=== PATIENT | male | born 1960 | race Caucasian/White ===

== ENCOUNTER 2019-03-01 14:26 | Outpatient (RCR) | payer MEDICARE, SELFPAY ==
[2019-03-01 15:33] VITALS: BP 162/92; PULSE 77; RESP 18; TEMP 36.8; BMI 28.4
--- NOTE | 2019-03-01 17:42 | PCM.CONHBO ---
(1) Osteomyelitis of right foot Status: Chronic Code(s): M86.9 - Osteomyelitis, unspecified (2) Right foot ulcer Status: Chronic Code(s): L97.519 - Non-pressure chronic ulcer of other part of right foot with unspecified severity (3) Type 2 diabetes mellitus Status: Chronic Code(s): E11.9 - Type 2 diabetes mellitus without complications (4) PVD (peripheral vascular disease) Status: Chronic Code(s): I73.9 - Peripheral vascular disease, unspecified (5) Stage 2 chronic kidney disease Status: Chronic Code(s): N18.2 - Chronic kidney disease, stage 2 (mild) (6) Smoker Status: Chronic Code(s): F17.200 - Nicotine dependence, unspecified, uncomplicated (7) COPD (chronic obstructive pulmonary disease) Status: Chronic Code(s): J44.9 - Chronic obstructive pulmonary disease, unspecified History of Present Illness Date of Service: 03/01/19 Presenting Chief Complaint: Would like HBOT for the Osteomyelitis of his right foot. The patient is a 58 year old M who [facility] the possibility of initiating hyperbaric oxygen therapy for treatment of osteomyelitis of his right foot. He also is a diabetic and has non healing, ulcers of his right distal foot on the plantar surface with undermining and right lateral edge with tunneling where the fifth digit would be located. 02/26/18 Left superficial femoral artery diffuse 70-75% disease. S/p [employer] using drug coated balloons 03/15/18 MRI right foot-osteomyelitis involving the proximal and distal phalanx of the great toe with suspected septic arthritis 03/18/19 Pathology: Right great toe amputation due to acute osteomyelitis. Resection margin appears to be viable and uninvolved. 07/27/18 xray right foot findings: The patient is post amputation of the first toe at the MTP joint. There is fragmentation and bony destruction of the remnant of the first metatarsal. There is bony destruction and pathological fracture through the second proximal phalanx. There is a slight step off the third metatarsal head suggesting an early area of fragmentation. The third and fourth digits are intact. There is lucency of the fifth metatarsal head which might represent subtle osteomyelitis although this is probably normal. Hindfoot and midfoot generally unremarkable. THere is soft tissue swelling and arterial calcification noted. Impression: areas of osteomyelitis as described above. 08/03/18 Pathology: 2nd, 34d, 4th, 5th toes right foot: four toes, three of which exhibit gangrene. Two of the toes show underlying acute osteomyelitis. The resected margins of all the toes are free of the acute osteomyelitis. The soft tissue resected margins are viable. 09/09/18 Echocardiogram Systolic LV function (EF 50%). Grade 1 diastolic dysfunction. Mild LV hypertrophy. Left atrium mildly dilated. 01/25/19 MRI right foot: Large deep ulceration/intact abscess with a tract extending to the tip of the remaining fourth metatarsal where findings of osteomyelitis are present. The bone edema extends to the proximal portion of the bone. There is induration or early ulceration also surrounding the first metatarsal distally. Underlying osteomyelitis cannot be excluded. He was recently hospitalized 02/09/19 at [facility] for bacterial abscess involving the right foot likely due to polymicrobial organism. The previous wound culture showed Enterobacter cloacae on 07/27/18. Right foot osteomyelitis which is again due to polymicrobial organism. CAD, DM, HTN, GERD, Arthritis, Renal insufficiency, Hiatal hernia , sleep apnea, COPD. He was treated with Zosyn and Vancomycin. They wanted to place a PICC line and give IV antibiotics for six weeks. The patient refused to stay and refused the PICC line. He is afraid the antibiotics would damage his kidneys and his CKD stage 2. He left the hospital against medical advice. There is a note stating that the patient would like hyperbaric oxygen treatment. According to Dr. Wily Shen on 02/11/19 he states he does not feel that HBOT will improve or resolve his current infection. Patient left the hospital AMA. Past Medical History Past Medical History Pertinent to Hyperbaric Oxygen Therapy: Diabetes, Obstructive pulmonary disease, - - CAD s/p stent placement to left superficial femoral artery Chronic Problems Osteomyelitis of right foot (Chronic) Type 2 diabetes mellitus (Chronic) Right foot ulcer (Chronic) Stage 2 chronic kidney disease (Chronic) Smoker (Chronic) COPD (chronic obstructive pulmonary disease) (Chronic) PVD (peripheral vascular disease) (Chronic) Allergies/Adverse Reactions: Allergies No Known Allergies Allergy (Verified 03/02/19 10:10) Home Medications: Ambulatory Orders Medication Instructions Recorded Clopidogrel Bisulfate [Plavix] 75 mg PO DAILY 03/02/19 Insulin Detemir [Levemir Flextouch] 100 unit SQ 03/02/19 Omeprazole [Prilosec] 20 mg PO BID 03/02/19 Smoking Status: Current every day smoker Review of Systems Constitutional: Denies: Anorexia, Chills, Fever Eyes: Denies: Pain, Vision Change HEENT: Denies: Difficulty Hearing, Difficulty Swallowing, Sinus Congestion Cardiovascular: Reports: - - History of coronary artery disease status post stent placement. Denies: Chest Pain Respiratory: Reports: - - COPD and wears O2 at night, also has sleep apnea. Denies: Shortness of Breath Gastrointestinal: Reports: - - Has a hiatal hernia. Denies: Abdominal Pain, Nausea Genitourinary: Reports: - - hx CKD stage 2 Musculoskeletal: Reports: Foot Pain - right foot pain, right toes 1-5 have been amputated Skin: Reports: Wounds - Right plantar ulcer with undermining and right lateral edge of right foot with tunneling near where toe#5 would be Neurological: Reports: Blurred vision, Change in Speech, Difficulty swallowing Psychiatric: Denies: Anxiety Endocrine: Denies: Heat/ Cold Intolerance, Polydipsia, Polyuria Hematologic/ Lymphatic: Denies: Easy Bruising, Easy Bleeding - Physical Exam Vital Signs Temp Pulse Resp BP 98.2 F 77 18 162/92 H 03/01/19 15:33 03/01/19 15:33 03/01/19 15:33 03/01/19 15:33 General: Alert, Oriented x3, Cooperative HEENT: Atraumatic, TM's Clear Oral: Moist Mucosa Lungs: Wheezes - wheezes scattered throughout anterior and posterior bilaterally Cardiovascular: Regular rate, Regular Rhythm Extremities: Capillary Refill Less than 3 Seconds, Diminished Peripheral Pulses, - - right foot with no toes Skin: Ulcer/ Wound - ulcer on the right plantar with undermining and right lateral edge near where the 5th toe would be with tunneling Wound Measurements and Assessment WC - Nurse 1 - General Ulcer Measurement Start: 03/01/19 15:16 Freq: Status: Active Protocol: Activity Type Activity Date Activity User E-Sign Co-Sign Detail Recorded Client Recorded Date Recorded By Document 03/01/19 15:33 DV [id number] 03/01/19 16:06 DV 03/01/19 15:33 Wound Center Nurse 1 [Ulcer Assessment] #3 Right 4th Met Head -Combined with other wound No -Current Size (cm) - Length 0.3 -Current Size (cm) - Width 0.2 -Current Size (cm) - Depth 1.0 -Total Square Cm 0.06 -Date of Last Picture (Recall this 03/01/19 field) -Photo Taken Yes -Epithelialization None Present -Tunneling No -Undermining/Tunneling No -Circular Undermining No -Classification - Thickness Full Thickness without Exposed Support Structure -Granulation Amt None Present (0 %) -Granulation Quality N/A -Slough/Fibrin Yes -Necrosis Amt Small (1-33%) -Necrotic Tissue Type Adherent Slough -Structure Exposed None/Limited to Skin Breakdown -Texture (Lawanda-wound Skin Appearance) Assessed, Scarring -Moisture (Lawanda-wound Skin Appearance Assessed, ) Weeping -Color (Lawanda-wound Skin Appearance) Assessed, Erythema -Temperature (Lawanda-wound Skin No Abnormality Appearance) (Pt Warm) -Tenderness on Palpation (Lawanda-wound No Skin Appearance) -Ulcer Cleansing Rinsed/ Irrigated with Saline -Foul Odor after Cleansing Yes -Anesthetic Used 5% Lidocaine Gel #2 Right 5th Met Head -Combined with other wound No -Current Size (cm) - Length 1.0 -Current Size (cm) - Width 0.7 -Current Size (cm) - Depth 0.9 -Total Square Cm 0.70 -Date of Last Picture (Recall this 03/01/19 field) -Photo Taken Yes -Epithelialization None Present -Tunneling Position (O'clock) 2 -Tunneling Distance (cm) 1.7 -Tunneling Position #2 (O'clock) 4 -Tunneling Distance #2 (cm) 2.1 #1 Right Foot Plantar -Combined with other wound No -Current Size (cm) - Length 0.6 -Current Size (cm) - Width 0.4 -Current Size (cm) - Depth 0.5 -Total Square Cm 0.24 -Date of Last Picture (Recall this 03/01/19 field) -Photo Taken Yes -Epithelialization None Present -Undermining/Tunneling Yes -Undermining/Tunneling Starts (O' 12 clock) -Undermining/Tunneling Ends (O'clock) 2 -Maximum Distance (cm) 0.7 -Circular Undermining No -Classification - Thickness Full Thickness without Exposed Support Structure -Exudate Amt Medium -Exudate Type Serosanguineous -Wound Margin Indistinct, Non -Visible -Granulation Amt None Present (0 %) -Granulation Quality N/A -Slough/Fibrin Yes -Necrosis Amt Small (1-33%) -Necrotic Tissue Type Adherent Slough -Structure Exposed None/Limited to Skin Breakdown -Texture (Lawanda-wound Skin Appearance) Assessed, Scarring -Moisture (Lawanda-wound Skin Appearance Assessed, ) Weeping -Color (Lawanda-wound Skin Appearance) Assessed, Erythema -Temperature (Lawanda-wound Skin No Abnormality Appearance) (Pt Warm) -Tenderness on Palpation (Lawanda-wound No Skin Appearance) -Ulcer Cleansing Rinsed/ Irrigated with Saline -Foul Odor after Cleansing No -Anesthetic Used 4% Lidocaine Solution WC - Nurse 2 - General Ulcer CM Notes Start: 03/01/19 15:16 Freq: Status: Active Protocol: Activity Type Activity Date Activity User E-Sign Co-Sign Detail Recorded Client Recorded Date Recorded By Document 03/01/19 16:46 JF [id number] 03/01/19 16:56 JF 03/01/19 16:46 Wound Center Nurse 2 [Procedure/Treatment] #3 Right 4th Met Head -Correct Patient No -Correct Side, Site, Position No -Correct Procedure No -Procedure Performed No -Wound/Ulcer Outcome Not Healed #2 Right 5th Met Head -Correct Patient No -Correct Side, Site, Position No -Correct Procedure No -Procedure Performed No -Wound/Ulcer Outcome Not Healed #1 Right Foot Plantar -Correct Patient No -Correct Side, Site, Position No -Correct Procedure No -Procedure Performed No -Wound/Ulcer Outcome Not Healed [See Physician Procedure note for Specifics] Pain Scale: 0-10 Numeric [Pain] -Is Patient Pain Free? Yes Musculoskeletal: Tenderness Neurological: Neuro grossly intact Psych/Mental Status: Normal Affect, Appropriate Assessment/Plan MANUELITO BROWN is an appropriate candidate for hyperbaric oxygen therapy. Hyperbaric Oxygen Therapy would be an essential adjunct in the resolution and treatment of this patient's presenting problem. This patient has sufficient physiologic and psychological stamina to undergo the rigors of hyperbaric oxygen therapy. As such, I recommend the following: Hyperbaric Oxygen Treatments at 2.0 ELLA in 100% Oxygen for 90 minutes per treatment, for [] treatments. I have discussed the possible benefits of hyperbaric oxygen therapy with this patient. I have also presented and described the risks, including: air gas embolism, pneumothorax, central nervous system and pulmonary oxygen toxicity, flash pulmonary edema, hypoglycemia, reversible visual refractive changes, ear and sinus lesvia-trauma, and confinement anxiety. The patient has verbalized understanding of these risks, and is still wanting to undergo hyperbaric oxygen therapy. The patient understands the significant time and transportation commitment involved in daily treatments of up to two hours duration and has stated that they are willing to commit to this therapy. - HBOT Diagnosis Pierre III Diabetic Foot/Toe Ulcer (707.15/250.8) Ordered arterial studies due to the last study was done September 2017. Code Visit Office Visits / Consults: [id number] OV L4 New - greater than 45 minutes were spent reviewing patient's charts, speaking with patient, assessing patient and discussing plan of care
== END 2019-03-03 23:59 ==
LOC: WC 14:26
PROVIDERS: Visit Provider Nurse Practitioner Family
DX: E11.621 Type 2 diabetes mellitus with foot ulcer (principal); L97.511 Non-pressure chronic ulcer of other part of right foot limited to breakdown of skin; E11.22 Type 2 diabetes mellitus with diabetic chronic kidney disease; E11.51 Type 2 diabetes mellitus with diabetic peripheral angiopathy without gangrene; N18.2 Chronic kidney disease, stage 2 (mild); F17.200 Nicotine dependence, unspecified, uncomplicated; I25.10 Atherosclerotic heart disease of native coronary artery without angina pectoris; J44.9 Chronic obstructive pulmonary disease, unspecified; M86.671 Other chronic osteomyelitis, right ankle and foot
CPT/HCPCS: 99205; G0463

== ENCOUNTER 2019-03-23 15:30 | Outpatient (RCR) | payer MEDICARE, SELFPAY ==
[2019-03-04 01:35] VITALS: BP 162/92; PULSE 77; RESP 18; TEMP 36.8
--- NOTE | 2019-03-07 08:44 | ART_ITS ---
Reason For Study: PVD/PAD Procedure A bilateral lower extremity continuous wave Doppler with analog waveform analysis,segmental pressures,and ankle brachial indexes without exercise. Left Segmental Pressures Left brachial= 167mmHg. Left posterior tibial artery = 118mmHg. Left dorsalis pedis artery = 144mmHg. Left digit = 74 mmHg. The left dorsalis pedis waveforms are biphasic. The left posterior tibial artery waveforms are biphasic. Right Segmental Pressures Right brachial= 153mmHg. Right posterior tibial artery = 90mmHg. Right dorsalis pedis artery = 107mmHg. The right dorsalis pedis waveforms are biphasic. The right posterior tibial artery waveforms are biphasic. Indices The right ankle brachial index by the dorsalis pedis is 0.64. The right ankle brachial index by the posterior tibial artery is 0.54. The left ankle brachial index by the dorsalis pedis is 0.86. The left ankle brachial index by the posterior tibial artery is 0.71. The left digital-brachial index is 0.44. Interpretation Summary Biphasic Doppler waveforms are noted at ankle level bilaterally. Pulse-volume recordings appear satisfactory bilaterally. The resting right ankle-brachial index is moderately diminished. The resting left ankle-brachial index is mildly diminished. The right digital-brachial index was not determined due to a prior right partial foot amputation. The left digital-brachial index is moderately diminished. There is moderate impairment of arterial flow at ankle level on the right, and mild impairment of arterial flow at ankle level on the left. Arterial flow at digital level on the right was not assessed due to prior amputation. There is moderate impairment of arterial flow at digital level on the left. Segmental leg pressures proximal to the ankles were not obtained due to prior lower extremity stent procedure(s). Ordering Physician: Lou Griffin Performed By: Shana Monge RVT
[2019-03-09 15:17] VITALS: BP 154/98; PULSE 86; RESP 16; TEMP 36.6; BMI 28.4
--- NOTE | 2019-03-09 17:03 | PN.PCM_ITS ---
(1) Type 2 diabetes mellitus with diabetic polyneuropathy Status: Chronic Code(s): E11.42 - Type 2 diabetes mellitus with diabetic polyneuropathy (2) Amputation at midfoot Status: Chronic Qualifiers: Encounter type: sequela Laterality: right Qualified Code(s): S98.311S - Complete traumatic amputation of right midfoot, sequela Code(s): S98.319A - Complete traumatic amputation of unspecified midfoot, initial encounter (3) Osteomyelitis of right foot Status: Chronic Qualifiers: Osteomyelitis type: subacute Qualified Code(s): M86.271 - Subacute osteomyelitis, right ankle and foot Code(s): M86.9 - Osteomyelitis, unspecified (4) Stage 2 chronic kidney disease Status: Chronic Code(s): N18.2 - Chronic kidney disease, stage 2 (mild) (5) Smoker Status: Chronic Code(s): F17.200 - Nicotine dependence, unspecified, uncomplicated (6) PVD (peripheral vascular disease) Status: Chronic Code(s): I73.9 - Peripheral vascular disease, unspecified (7) Non-pressure chronic ulcer of other part of right foot with fat layer exposed Status: Chronic Code(s): L97.512 - Non-pressure chronic ulcer of other part of right foot with fat layer exposed (8) Malnutrition Status: Acute Code(s): E46 - Unspecified protein-calorie malnutrition (9) Delayed wound healing Status: Acute Code(s): T14.8XXD - Other injury of unspecified body region, subsequent encounter Type of Wound Date of Service: 03/09/19 Chief Complaint: Right foot ulcers History of Wound: This 58-year-old male with multiple comorbidities with self referred for hyperbaric oxygen therapy consideration and to see if any other interventions are available for his treatment of nonhealing right foot ulcers. His medical records from outside facilities and previous wound healing center provider were reviewed in detail with the following summary: 02/26/18 Left superficial femoral artery diffuse 70-75% disease. S/p SPEECH PATHOLOGIST ASSISTANT using drug coated balloons. 03/15/18 MRI right foot-osteomyelitis involving the proximal and distal phalanx of the great toe with suspected septic arthritis. 03/18/19 Pathology: Right great toe amputation due to acute osteomyelitis. Resection margin appears to be viable and uninvolved. 07/27/18 xray right foot findings: The patient is post amputation of the first toe at the MTP joint. There is fragmentation and bony destruction of the remnant of the first metatarsal. There is bony destruction and pathological fracture through the second proximal phalanx. There is a slight step off the third metatarsal head suggesting an early area of fragmentation. The third and fourth digits are intact. There is lucency of the fifth metatarsal head which might represent subtle osteomyelitis although this is probably normal. Hindfoot and midfoot generally unremarkable. THere is soft tissue swelling and arterial calcification noted. Impression: areas of osteomyelitis as described above. 08/03/18 Pathology: 2nd, 34d, 4th, 5th toes right foot: four toes, three of which exhibit gangrene. Two of the toes show underlying acute osteomyelitis. The resected margins of all the toes are free of the acute osteomyelitis. The soft tissue resected margins are viable. 09/09/18 Echocardiogram Systolic LV function (EF 50%). Grade 1 diastolic dysfunction. Mild LV hypertrophy. Left atrium mildly dilated. 01/25/19 MRI right foot: Large deep ulceration/intact abscess with a tract extending to the tip of the remaining fourth metatarsal where findings of osteomyelitis are present. The bone edema extends to the proximal portion of the bone. There is induration or early ulceration also surrounding the first metatarsal distally. Underlying osteomyelitis cannot be excluded. He was recently hospitalized 02/09/19 at [facility] for bacterial abscess involving the right foot likely due to polymicrobial organism. The previous wound culture showed Enterobacter cloacae on 07/27/18. Right foot osteomyelitis which is again due to polymicrobial organism. CAD, DM, HTN, GERD, Arthritis, Renal insufficiency, Hiatal hernia , sleep apnea, COPD. He was treated with Zosyn and Vancomycin. They wanted to place a PICC line and give IV antibiotics for six weeks. The patient refused to stay and refused the PICC line. He is afraid the antibiotics would damage his kidneys and his CKD stage 2. He left the hospital against medical advice. There is a note stating that the patient would like hyperbaric oxygen treatment. According to Dr. Wily Shen on 02/11/19 he states he does not feel that HBOT will improve or resolve his current infection. Patient left the hospital AMA. Upon continued evaluation during today's clinical visit, the patient is not interested in a below the knee amputation at this time, he is adamant about following up with his previous vascular surgeon and is scheduled for this upcoming week. [place] and is certain he is able to make the long drive and maintain compliance with visits. We will being interviewed for appropriateness of hyperbaric oxygen therapy it is apparent that the patient is very claustrophobic it does not think he would be able to enter one of the chambers for treatment. Sedation is not a viable consideration because he is required to drive after his visits. He would like to consider additional wound care and surgical options for his foot. Progress of Wound: Stable - Physical Exam Vital Signs Temp Pulse Resp BP 97.8 F 86 16 154/98 H 03/09/19 15:17 03/09/19 15:17 03/09/19 15:17 03/09/19 15:17 General: Alert, Oriented x3, Cooperative, No apparent distress HEENT: Atraumatic Extremities: No cyanosis, Capillary Refill Less than 3 Seconds - To amputation stump site right, No Calf Tenderness - Negative Jenny and Weaver sign bilateral, Diminished Peripheral Pulses, Edema, - - No fluctuance or palpation to the right lower extremity. There is a midfoot amputation noted right. Skin: Ulcer/ Wound - There is no maceration. No purulence, erythema, odor, streaking noted. There is probing to deep tissue. And the multiple wounds for the right foot cluster do appear to communicate there is undermining. His adjacent skin is hairless and atrophic. Wound Measurements and Assessment WC - Nurse 1 - General Ulcer Measurement Start: 03/09/19 15:17 Freq: Status: Active Protocol: Activity Type Activity Date Activity User E-Sign Co-Sign Detail Recorded Client Recorded Date Recorded By Document 03/09/19 15:17 [facility] [id number] 03/09/19 15:27 [facility] 03/09/19 15:17 Wound Center Nurse 1 [Ulcer Assessment] #3 Right 4th Met Head -Combined with other wound No -Current Size (cm) - Length 0.1 -Current Size (cm) - Width 0.1 -Current Size (cm) - Depth 0.4 -Total Square Cm 0.01 -Photo Taken No -Epithelialization None Present -Tunneling No -Undermining/Tunneling No -Circular Undermining No -Exudate Amt None Present -Wound Margin Flat & Intact -Granulation Amt None Present (0 %) -Necrosis Amt None Present (0 %) -Texture (Lawanda-wound Skin Appearance) Assessed -Moisture (Lawanda-wound Skin Appearance Assessed ) -Color (Lawanda-wound Skin Appearance) Assessed -Temperature (Lawanda-wound Skin No Abnormality Appearance) (Pt Warm) -Tenderness on Palpation (Lawanda-wound No Skin Appearance) -Ulcer Cleansing Rinsed/ Irrigated with Saline -Foul Odor after Cleansing No -Anesthetic Used 5% Lidocaine Gel #2 Right 5th Met Head -Combined with other wound No -Current Size (cm) - Length 1 -Current Size (cm) - Width 0.8 -Current Size (cm) - Depth 0.8 -Total Square Cm 0.8 -Photo Taken No -Epithelialization Small 1-33% -Tunneling No -Undermining/Tunneling No -Circular Undermining No -Exudate Amt Small -Exudate Type Serosanguineous -Wound Margin Distinct, Outline Attached -Granulation Amt Medium (34-66%) -Granulation Quality Red -Slough/Fibrin Yes -Necrosis Amt Small (1-33%) -Necrotic Tissue Type Adherent Slough -Texture (Lawanda-wound Skin Appearance) Assessed -Moisture (Lawanda-wound Skin Appearance Assessed, ) Maceration -Color (Lawanda-wound Skin Appearance) Assessed,Palor -Temperature (Lawanda-wound Skin No Abnormality Appearance) (Pt Warm) -Tenderness on Palpation (Lawanda-wound No Skin Appearance) -Ulcer Cleansing Rinsed/ Irrigated with Saline -Foul Odor after Cleansing No -Anesthetic Used 5% Lidocaine Gel #1 Right Foot Plantar -Combined with other wound No -Current Size (cm) - Length 0.6 -Current Size (cm) - Width 0.3 -Current Size (cm) - Depth 0.5 -Total Square Cm 0.18 -Photo Taken No -Epithelialization None Present -Tunneling No -Undermining/Tunneling No -Circular Undermining No -Exudate Amt None Present -Wound Margin Distinct, Outline Attached -Granulation Amt Large (67-100%) -Granulation Quality [place] -Slough/Fibrin No -Necrosis Amt None Present (0 %) -Texture (Lawanda-wound Skin Appearance) Assessed -Moisture (Lawanda-wound Skin Appearance Assessed,Dry/ ) Scaly -Color (Lawanda-wound Skin Appearance) Assessed -Temperature (Lawanda-wound Skin No Abnormality Appearance) (Pt Warm) -Tenderness on Palpation (Lawanda-wound No Skin Appearance) -Ulcer Cleansing Rinsed/ Irrigated with Saline -Foul Odor after Cleansing No -Anesthetic Used 5% Lidocaine Gel WC - Nurse 2 - General Ulcer CM Notes Start: 03/09/19 15:17 Freq: Status: Active Protocol: Activity Type Activity Date Activity User E-Sign Co-Sign Detail Recorded Client Recorded Date Recorded By Document 03/09/19 15:38 [id number] 03/09/19 15:52 03/09/19 15:38 Wound Center Nurse 2 [Procedure/Treatment] #3 Right 4th Met Head -Time 15:47 -Correct Patient Yes -Correct Side, Site, Position Yes -Correct Procedure Yes -Procedure Performed Yes -Type of Procedure Debridement -Clinical Debridement Subcutaneous -Post Debridement Size (cm) - Length 0.2 -Post Debridement Size (cm) - Width 0.2 -Post Debridement Size (cm) - Depth 0.4 -Total Square Cm 0.04 -Wound/Ulcer Outcome Not Healed -Ulcer Cleansing Rinsed/ Irrigated with Saline -Foul Odor after Cleansing No -Bioengineered Tissue No -Bleeding Controlled with NA,Pressure -Offloading Yes -Type of Offloading Surgical Shoe -Treatment Response Procedure Tolerated Well #2 Right 5th Met Head -Time 15:48 -Correct Patient Yes -Correct Side, Site, Position Yes -Correct Procedure Yes -Procedure Performed Yes -Type of Procedure Debridement -Clinical Debridement Subcutaneous -Post Debridement Size (cm) - Length 1 -Post Debridement Size (cm) - Width 1 -Post Debridement Size (cm) - Depth 0.8 -Total Square Cm 1 -Wound/Ulcer Outcome Not Healed -Ulcer Cleansing Rinsed/ Irrigated with Saline -Foul Odor after Cleansing No -Bioengineered Tissue No -Bleeding Controlled with Pressure -Offloading Yes -Type of Offloading Surgical Shoe -Treatment Response Procedure Tolerated Well #1 Right Foot Plantar -Time 15:48 -Correct Patient Yes -Correct Side, Site, Position Yes -Correct Procedure Yes -Procedure Performed Yes -Type of Procedure Debridement -Clinical Debridement Subcutaneous -Post Debridement Size (cm) - Length 0.6 -Post Debridement Size (cm) - Width 0.4 -Post Debridement Size (cm) - Depth 0.5 -Total Square Cm 0.24 -Wound/Ulcer Outcome Not Healed -Ulcer Cleansing Rinsed/ Irrigated with Saline -Foul Odor after Cleansing No -Bioengineered Tissue No -Bleeding Controlled with Pressure -Offloading Yes -Type of Offloading Surgical Shoe -Treatment Response Procedure Tolerated Well [See Physician Procedure note for Specifics] Pain Scale: 0-10 Numeric [Pain] -Is Patient Pain Free? Yes Musculoskeletal: No Tenderness to Palpation of Joints or Extremities, Muscle Wasting Neurological: - - Lack of normal epicritic sensation light touch is consistent with neuropathy Psych/Mental Status: Normal Affect, Appropriate Debridement Note Post-Debridement Measurements/Treatment WC - Nurse 2 - General Ulcer CM Notes Start: 03/09/19 15:17 Freq: Status: Active Protocol: Activity Type Activity Date Activity User E-Sign Co-Sign Detail Recorded Client Recorded Date Recorded By Document 03/09/19 15:38 MANUELA [id number] 03/09/19 15:52 MANUELA 03/09/19 15:38 Wound Center Nurse 2 #3 Right 4th Met Head -Time 15:47 -Correct Patient Yes -Correct Side, Site, Position Yes -Correct Procedure Yes -Procedure Performed Yes -Type of Procedure Debridement -Clinical Debridement Subcutaneous -Post Debridement Size (cm) - Length 0.2 -Post Debridement Size (cm) - Width 0.2 -Post Debridement Size (cm) - Depth 0.4 -Total Square Cm 0.04 -Wound/Ulcer Outcome Not Healed -Ulcer Cleansing Rinsed/ Irrigated with Saline -Foul Odor after Cleansing No -Bioengineered Tissue No -Bleeding Controlled with NA,Pressure -Offloading Yes -Type of Offloading Surgical Shoe -Treatment Response Procedure Tolerated Well #2 Right 5th Met Head -Time 15:48 -Correct Patient Yes -Correct Side, Site, Position Yes -Correct Procedure Yes -Procedure Performed Yes -Type of Procedure Debridement -Clinical Debridement Subcutaneous -Post Debridement Size (cm) - Length 1 -Post Debridement Size (cm) - Width 1 -Post Debridement Size (cm) - Depth 0.8 -Total Square Cm 1 -Wound/Ulcer Outcome Not Healed -Ulcer Cleansing Rinsed/ Irrigated with Saline -Foul Odor after Cleansing No -Bioengineered Tissue No -Bleeding Controlled with Pressure -Offloading Yes -Type of Offloading Surgical Shoe -Treatment Response Procedure Tolerated Well #1 Right Foot Plantar -Time 15:48 -Correct Patient Yes -Correct Side, Site, Position Yes -Correct Procedure Yes -Procedure Performed Yes -Type of Procedure Debridement -Clinical Debridement Subcutaneous -Post Debridement Size (cm) - Length 0.6 -Post Debridement Size (cm) - Width 0.4 -Post Debridement Size (cm) - Depth 0.5 -Total Square Cm 0.24 -Wound/Ulcer Outcome Not Healed -Ulcer Cleansing Rinsed/ Irrigated with Saline -Foul Odor after Cleansing No -Bioengineered Tissue No -Bleeding Controlled with Pressure -Offloading Yes -Type of Offloading Surgical Shoe -Treatment Response Procedure Tolerated Well Pain Scale: 0-10 Numeric Is Patient Pain Free? Yes Wound debrided: amputation stump site Laterality: Right Wound Grade/Stage: grade 3 Type of Debridement: Excisional debridement Anesthesia Used: 5% Lidocaine Gel Depth: in the subcutaneous layer Percentage of wound debrided: 100 Instrument Used: #15 blade Tissue Removed: fibrous, devitalized subcutaneous, biofilm, slough Severity: Fat Layer Exposed Amount of bleeding with debridement: Mild Bleeding Controlled with: Pressure Patient tolerated procedure well Assessment/Plan Assessment: Right foot ulcer with fat layer exposed and recently treated infectious myositis and concern of osteomyelitis. Amputation right foot. Delayed healing. Malnutrition suspected. Uncontrolled diabetes with neuropathy, hemoglobin A1c of 9.2%. Multiple other comorbidities Plan: I reviewed and discussed his case and performed a chart review including [facility] as well as faxed medical files from other healthcare centers. Subcutaneous excisional debridement was performed today as noted in the clinical panel. He tolerated this well. He was advised to continue with silver alginate deep packing dressing to the communicating cluster sites. He was reassured no purulence was noted today. As noted he is on antibiotics and he is advised to continue this. To monitor for development of local infection or systemic illness in which neither is noted today. Upon information obtained from medical records in combination with his clinical presentation, it is apparent he has a grade 3 ulcer. We initially discussed the etiology of his ulcers and basics of comprehensive wound healing plan including proper offloading, diabetic control, need for serial debridements, infection management, vascular perfusion requirements, and nutritional supplementation. We also discussed advanced treatment such as additional foot surgeries and hyperbaric oxygen therapy. He continues to walk on his foot and I advised him to wear a cam walker boot and to use an assistive device to keep pressure off of the site. He understands attention of pressure in a repetitive manner to the site will not allow healing. A prescription for a cam walker boot with offloading dual density Plastizote liners were provided and he was advised to get fitted for this at the foot and ankle center. I recommend improved glycemic control for any hemoglobin A1c over 7.5% is associated with a poor healing outcome for surgical and nonsurgical care. I recommend nutritional s upplementation and a prescription was provided for Vinicius nutritional supplementation combination with a well balanced high-protein and high nutrient diet. Continue follow-up with his infectious disease specialist as advised. I reviewed his recent noninvasive vascular studies which demonstrated biphasic waveforms to the ankle level and an CRISTINA on the right side of 0.64 and left 0.86. This is consistent with vascular impairment and his prior intervention with his vascular surgeon is noted. He is scheduled to follow-up with him next week and I advised him to do so. We discussed at length the benefits and indications of hyperbaric oxygen therapy as an adjunctive treatment to the standard wound healing treatment components. He admits he is very claustrophobic and he is unable to anterior chamber for treatment. We discussed potential sedation options and I do not recommend this at this time because he has to drive after each treatment session for [place]. He is also unable to go to closer hyper baric oxygen therapy locations or have assistance from family or friends to drive him to the sessions. We discussed these options at length and he will think about this over the next week. If he is able to set up appropriate and safe transportation and is amenable to undergo sedation prior to chamber entry, then we will proceed forward with ordering the screening test and clearance evaluation. He understands he must have an ejection fraction over 40% and update his diagnostic data to ensure safety such as an EKG, chest x- ray, and CBC, and CMP. I also recommended an updated right foot x-ray he was given an order for this today as well. He understands he is at risk for continued limb loss and even from this complex condition. It is noted a below-knee amputation was recommended from another provider. We discussed potential foot surgeries including revisional midfoot amputation, soft tissue mobilization and debridement, application of advanced wound healing product such as amnio fill, and considerations for posterior lower leg lengthening procedures if appropriate. He will think about this as well over the next week and I would like to review his foot x-ray, vascular surgery updated plan, and patient intent prior to scheduling this. I answered all his questions. I recommend he follows up with the wound healing center next week or call sooner if he has any questions or concerns. The referral is appreciated.
[2019-03-16 14:58] VITALS: RESP 18; TEMP 36.7; BMI 28.4
--- NOTE | 2019-03-16 16:21 | PCM.WC.PN ---
(1) Non-pressure chronic ulcer of other part of right foot with fat layer exposed Status: Chronic Current Visit: Yes Code(s): L97.512 - Non-pressure chronic ulcer of other part of right foot with fat layer exposed (2) Type 2 diabetes mellitus with diabetic polyneuropathy Status: Chronic Current Visit: Yes Code(s): E11.42 - Type 2 diabetes mellitus with diabetic polyneuropathy (3) Amputation at midfoot Status: Chronic Current Visit: Yes Qualifiers: Encounter type: sequela Laterality: right Qualified Code(s): S98.311S - Complete traumatic amputation of right midfoot, sequela Code(s): S98.319A - Complete traumatic amputation of unspecified midfoot, initial encounter (4) Osteomyelitis of right foot Status: Chronic Current Visit: Yes Qualifiers: Osteomyelitis type: subacute Qualified Code(s): M86.271 - Subacute osteomyelitis, right ankle and foot Code(s): M86.9 - Osteomyelitis, unspecified (5) Stage 2 chronic kidney disease Status: Chronic Current Visit: Yes Code(s): N18.2 - Chronic kidney disease, stage 2 (mild) (6) Smoker Status: Chronic Current Visit: Yes Code(s): F17.200 - Nicotine dependence, unspecified, uncomplicated (7) PVD (peripheral vascular disease) Status: Chronic Current Visit: Yes Code(s): I73.9 - Peripheral vascular disease, unspecified (8) Malnutrition Status: Chronic Current Visit: Yes Code(s): E46 - Unspecified protein-calorie malnutrition (9) Delayed wound healing Status: Chronic Current Visit: Yes Code(s): T14.8XXD - Other injury of unspecified body region, subsequent encounter (10) Claustrophobia Status: Acute Current Visit: Yes Code(s): F40.240 - Claustrophobia (11) Chronic pain Status: Chronic Current Visit: Yes Code(s): G89.29 - Other chronic pain Type of Wound Date of Service: 03/16/19 Chief Complaint: Right foot ulcers History of Wound: This 58-year-old male with multiple comorbidities with self referred for hyperbaric oxygen therapy consideration and to see if any other interventions are available for his treatment of nonhealing right foot ulcers. His medical records from outside facilities and previous wound healing center provider were reviewed in detail with the following summary: 02/26/18 Left superficial femoral artery diffuse 70-75% disease. 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 03/15/18 MRI right foot-osteomyelitis involving the proximal and distal phalanx of the great toe with suspected septic arthritis. 03/18/19 Pathology: Right great toe amputation due to acute osteomyelitis. Resection margin appears to be viable and uninvolved. 07/27/18 xray right foot findings: The patient is post amputation of the first toe at the MTP joint. There is fragmentation and bony destruction of the remnant of the first metatarsal. There is bony destruction and pathological fracture through the second proximal phalanx. There is a slight step off the third metatarsal head suggesting an early area of fragmentation. The third and fourth digits are intact. There is lucency of the fifth metatarsal head which might represent subtle osteomyelitis although this is probably normal. Hindfoot and midfoot generally unremarkable. THere is soft tissue swelling and arterial calcification noted. Impression: areas of osteomyelitis as described above. 08/03/18 Pathology: 2nd, 34d, 4th, 5th toes right foot: four toes, three of which exhibit gangrene. Two of the toes show underlying acute osteomyelitis. The resected margins of all the toes are free of the acute osteomyelitis. The soft tissue resected margins are viable. 09/09/18 Echocardiogram Systolic LV function (EF 50%). Grade 1 diastolic dysfunction. Mild LV hypertrophy. Left atrium mildly dilated. 01/25/19 MRI right foot: Large deep ulceration/intact abscess with a tract extending to the tip of the remaining fourth metatarsal where findings of osteomyelitis are present. The bone edema extends to the proximal portion of the bone. There is induration or early ulceration also surrounding the first metatarsal distally. Underlying osteomyelitis cannot be excluded. He was recently hospitalized 02/09/19 at [facility] for bacterial abscess involving the right foot likely due to polymicrobial organism. The previous wound culture showed Enterobacter cloacae on 07/27/18. Right foot osteomyelitis which is again due to polymicrobial organism. CAD, DM, HTN, GERD, Arthritis, Renal insufficiency, Hiatal hernia , sleep apnea, COPD. He was treated with Zosyn and Vancomycin. They wanted to place a PICC line and give IV antibiotics for six weeks. The patient refused to stay and refused the PICC line. He is afraid the antibiotics would damage his kidneys and his CKD stage 2. He left the hospital against medical advice. There is a note stating that the patient would like hyperbaric oxygen treatment. According to Dr. Wily Shen on 02/11/19 he states he does not feel that HBOT will improve or resolve his current infection. Patient left the hospital AMA. Upon continued evaluation during today's clinical visit, the patient is not interested in a below the knee amputation at this time, he is adamant about following up with his previous vascular surgeon and is scheduled for this upcoming week. [place] from [place]. it is apparent that the patient is very claustrophobic it does not think he would be able to enter one of the chambers for treatment. He relates this is a recent progression for him and he could barely tolerate getting into his truck to make the travel. He relates he had to travel with the windows down and requested to remain open today. Sedation is not a viable consideration because he is required to drive after his visits. He did obtain an updated foot x-ray however he obtain this in [facility] and I am only able to review the imaging report. He is been offloading with a cam walker boot as advised to take pressure off of the site. He relates he is no longer able to follow-up at his previous pain management clinic and he was abruptly taken off of large amounts of Percocet and gabapentin. He relates he has been taking 5 Percocets a day for many years as well as 800 mg of gabapentin 4 times daily. He relates he is having very unusual thoughts including progressive claustrophobia fears. He is with his friend today. Progress of Wound: Stable - Physical Exam Vital Signs Temp Pulse Resp BP 98.0 F 86 18 154/98 H 03/16/19 14:58 03/09/19 15:17 03/16/19 14:58 03/09/19 15:17 General: Alert, Oriented x3, Cooperative, - - Distressed HEENT: Atraumatic Extremities: No cyanosis, Capillary Refill Less than 3 Seconds, No Calf Tenderness - Negative Jenny and Weaver sign bilateral, Diminished Peripheral Pulses, Edema - Mild right foot, - - Right transmetatarsal amputation Skin: Ulcer/ Wound - No purulence, erythema, string, odor, infection. There is a cluster of ulcers that seem to tunnel and communicate. There is some reduction in depth to the 1 out of 3 openings. There is no maceration, necrosis. This does probe to deep tissues including bone. The peripheral skin is hairless and atrophic. Wound Measurements and Assessment WC - Nurse 1 - General Ulcer Measurement Start: 03/09/19 15:17 Freq: Status: Active Protocol: Activity Type Activity Date Activity User E-Sign Co-Sign Detail Recorded Client Recorded Date Recorded By Document 03/16/19 14:58 IN [id number] 03/16/19 15:05 IN 03/16/19 14:58 Wound Center Nurse 1 [Ulcer Assessment] #3 Right 4th Met Head -Current Size (cm) - Length 0.7 -Current Size (cm) - Width 0.1 -Current Size (cm) - Depth 0.4 -Total Square Cm 0.07 -Exudate Amt Small -Exudate Type Serosanguineous -Wound Margin Flat & Intact -Granulation Amt Large (67-100%) -Granulation Quality Pale,[place] -Slough/Fibrin Yes -Necrosis Amt Small (1-33%) -Necrotic Tissue Type Adherent Slough -Texture (Lawanda-wound Skin Appearance) Assessed -Moisture (Lawanda-wound Skin Appearance Assessed, ) Maceration -Color (Lawanda-wound Skin Appearance) Assessed -Temperature (Lawanda-wound Skin No Abnormality Appearance) (Pt Warm) -Tenderness on Palpation (Lawanda-wound No Skin Appearance) -Ulcer Cleansing Rinsed/ Irrigated with Saline -Foul Odor after Cleansing No -Anesthetic Used 4% Lidocaine Solution #2 Right 5th Met Head -Current Size (cm) - Length 1.2 -Current Size (cm) - Width 1.0 -Current Size (cm) - Depth 0.7 -Total Square Cm 1.20 -Exudate Amt Small -Exudate Type Serosanguineous -Wound Margin Flat & Intact -Granulation Amt Large (67-100%) -Granulation Quality Pale,[place] -Slough/Fibrin No -Texture (Lawanda-wound Skin Appearance) Assessed -Moisture (Lawanda-wound Skin Appearance Assessed, ) Maceration -Color (Lawanda-wound Skin Appearance) Assessed -Temperature (Lawanda-wound Skin No Abnormality Appearance) (Pt Warm) -Tenderness on Palpation (Lawanda-wound No Skin Appearance) -Ulcer Cleansing Rinsed/ Irrigated with Saline -Foul Odor after Cleansing No -Anesthetic Used 4% Lidocaine Solution #1 Right Foot Plantar -Current Size (cm) - Length 0.5 -Current Size (cm) - Width 0.2 -Current Size (cm) - Depth 0.7 -Total Square Cm 0.10 -Exudate Amt Small -Exudate Type Serous -Wound Margin Thickened & Rolled Under -Granulation Amt Large (67-100%) -Granulation Quality Pale,[place] -Slough/Fibrin Yes -Necrosis Amt Small (1-33%) -Texture (Lawanda-wound Skin Appearance) Assessed -Moisture (Lawanda-wound Skin Appearance Assessed, ) Maceration -Color (Lawanda-wound Skin Appearance) Assessed -Temperature (Lawanda-wound Skin No Abnormality Appearance) (Pt Warm) -Tenderness on Palpation (Lawanda-wound No Skin Appearance) -Ulcer Cleansing Rinsed/ Irrigated with Saline -Anesthetic Used 4% Lidocaine Solution [Edema Assessment] -Lower Limb Edema Present NA WC - Nurse 2 - General Ulcer CM Notes Start: 03/09/19 15:17 Freq: Status: Active Protocol: Activity Type Activity Date Activity User E-Sign Co-Sign Detail Recorded Client Recorded Date Recorded By Document 03/16/19 15:39 [id number] 03/16/19 15:46 03/16/19 15:39 Wound Center Nurse 2 [Procedure/Treatment] #3 Right 4th Met Head -Time 15:41 -Correct Patient Yes -Correct Side, Site, Position Yes -Correct Procedure Yes -Procedure Performed Yes -Type of Procedure Debridement -Clinical Debridement Subcutaneous -Post Debridement Size (cm) - Length 0.8 -Post Debridement Size (cm) - Width 0.2 -Post Debridement Size (cm) - Depth 0.4 -Total Square Cm 0.16 -Wound/Ulcer Outcome Not Healed -Ulcer Cleansing Rinsed/ Irrigated with Saline -Foul Odor after Cleansing No -Bioengineered Tissue No -Bleeding Controlled with Pressure -Offloading Yes -Type of Offloading Camwalker -Treatment Response Procedure Tolerated Well #2 Right 5th Met Head -Time 15:45 -Correct Patient Yes -Correct Side, Site, Position Yes -Correct Procedure Yes -Procedure Performed Yes -Type of Procedure Debridement -Clinical Debridement Subcutaneous -Post Debridement Size (cm) - Length 1.2 -Post Debridement Size (cm) - Width 1.1 -Post Debridement Size (cm) - Depth 0.7 -Total Square Cm 1.32 -Wound/Ulcer Outcome Not Healed -Ulcer Cleansing Rinsed/ Irrigated with Saline -Foul Odor after Cleansing No -Bioengineered Tissue No -Bleeding Controlled with Pressure -Type of Offloading Camwalker -Treatment Response Procedure Tolerated Well #1 Right Foot Plantar -Time 15:45 -Correct Patient Yes -Correct Side, Site, Position Yes -Correct Procedure Yes -Procedure Performed Yes -Type of Procedure Debridement -Clinical Debridement Subcutaneous -Post Debridement Size (cm) - Length 0.5 -Post Debridement Size (cm) - Width 0.3 -Post Debridement Size (cm) - Depth 0.7 -Total Square Cm 0.15 -Wound/Ulcer Outcome Not Healed -Ulcer Cleansing Rinsed/ Irrigated with Saline -Foul Odor after Cleansing No -Bioengineered Tissue No -Bleeding Controlled with Pressure -Offloading Yes -Type of Offloading Camwalker -Treatment Response Procedure Tolerated Well [See Physician Procedure note for Specifics] Pain Scale: 0-10 Numeric [Pain] -Is Patient Pain Free? Yes Musculoskeletal: No Tenderness to Palpation of Joints or Extremities, Muscle Wasting, - - No bogginess or fluctuance on palpation Neurological: - - Lack of normal epicritic sensation light touch is consistent with neuropathy status Psych/Mental Status: Normal Affect, Appropriate, Anxious, Restless Debridement Note Post-Debridement Measurements/Treatment WC - Nurse 2 - General Ulcer CM Notes Start: 03/09/19 15:17 Freq: Status: Active Protocol: Activity Type Activity Date Activity User E-Sign Co-Sign Detail Recorded Client Recorded Date Recorded By Document 03/09/19 15:38 [id number] 03/09/19 15:52 Document 03/16/19 15:39 [id number] 03/16/19 15:46 03/09/19 03/16/19 15:38 15:39 Wound Center Nurse 2 #3 Right 4th Met Head -Time 15:47 15:41 -Correct Patient Yes Yes -Correct Side, Site, Position Yes Yes -Correct Procedure Yes Yes -Procedure Performed Yes Yes -Type of Procedure Debridement Debridement -Clinical Debridement Subcutaneous Subcutaneous -Post Debridement Size (cm) - Length 0.2 0.8 -Post Debridement Size (cm) - Width 0.2 0.2 -Post Debridement Size (cm) - Depth 0.4 0.4 -Total Square Cm 0.04 0.16 -Wound/Ulcer Outcome Not Healed Not Healed -Ulcer Cleansing Rinsed/ Rinsed/ Irrigated with Irrigated with Saline Saline -Foul Odor after Cleansing No No -Bioengineered Tissue No No -Bleeding Controlled with NA,Pressure Pressure -Offloading Yes Yes -Type of Offloading Surgical Shoe Camwalker -Treatment Response Procedure Procedure Tolerated Well Tolerated Well #2 Right 5th Met Head -Time 15:48 15:45 -Correct Patient Yes Yes -Correct Side, Site, Position Yes Yes -Correct Procedure Yes Yes -Procedure Performed Yes Yes -Type of Procedure Debridement Debridement -Clinical Debridement Subcutaneous Subcutaneous -Post Debridement Size (cm) - Length 1 1.2 -Post Debridement Size (cm) - Width 1 1.1 -Post Debridement Size (cm) - Depth 0.8 0.7 -Total Square Cm 1 1.32 -Wound/Ulcer Outcome Not Healed Not Healed -Ulcer Cleansing Rinsed/ Rinsed/ Irrigated with Irrigated with Saline Saline -Foul Odor after Cleansing No No -Bioengineered Tissue No No -Bleeding Controlled with Pressure Pressure -Offloading Yes -Type of Offloading Surgical Shoe Camwalker -Treatment Response Procedure Procedure Tolerated Well Tolerated Well #1 Right Foot Plantar -Time 15:48 15:45 -Correct Patient Yes Yes -Correct Side, Site, Position Yes Yes -Correct Procedure Yes Yes -Procedure Performed Yes Yes -Type of Procedure Debridement Debridement -Clinical Debridement Subcutaneous Subcutaneous -Post Debridement Size (cm) - Length 0.6 0.5 -Post Debridement Size (cm) - Width 0.4 0.3 -Post Debridement Size (cm) - Depth 0.5 0.7 -Total Square Cm 0.24 0.15 -Wound/Ulcer Outcome Not Healed Not Healed -Ulcer Cleansing Rinsed/ Rinsed/ Irrigated with Irrigated with Saline Saline -Foul Odor after Cleansing No No -Bioengineered Tissue No No -Bleeding Controlled with Pressure Pressure -Offloading Yes Yes -Type of Offloading Surgical Shoe Camwalker -Treatment Response Procedure Procedure Tolerated Well Tolerated Well Pain Scale: 0-10 Numeric Is Patient Pain Free? Yes Yes Wound debrided: distal lateral foot Laterality: Right Wound Grade/Stage: grade 3 Type of Debridement: Excisional debridement Anesthesia Used: 5% Lidocaine Gel Depth: in the subcutaneous layer Percentage of wound debrided: 100 Instrument Used: #15 blade Tissue Removed: fibrous, devitalized subcutaneous, biofilm, slough Severity: Fat Layer Exposed Amount of bleeding with debridement: Mild Bleeding Controlled with: Pressure Patient tolerated procedure well Assessment/Plan Active Problems Osteomyelitis of right foot (Chronic) Stage 2 chronic kidney disease (Chronic) Smoker (Chronic) PVD (peripheral vascular disease) (Chronic) Type 2 diabetes mellitus with diabetic polyneuropathy (Chronic) Amputation at midfoot (Chronic) Non-pressure chronic ulcer of other part of right foot with fat layer exposed (Chronic) Malnutrition (Chronic) Delayed wound healing (Chronic) Claustrophobia (Acute) Chronic pain (Chronic) Assessment: Right foot ulcer with fat layer exposed and recently treated infectious myositis and concern of osteomyelitis. Amputation right foot. Delayed healing. Malnutrition suspected. Uncontrolled diabetes with neuropathy, hemoglobin A1c of 9.2%. Multiple other comorbidities. Recent exacerbation of claustrophobia Plan: I reviewed and discussed his case and performed a chart review including [facility] as well as faxed medical files from other healthcare centers. Subcutaneous excisional debridement was performed today as noted in the clinical panel. He tolerated this well. He was advised to continue with silver alginate deep packing dressing to the communicating cluster sites. He was reassured no purulence was noted today. As noted he is on antibiotics and he is advised to continue this. To monitor for development of local infection or systemic illness in which neither is noted today. Upon information obtained from medical records in combination with his clinical presentation, it is apparent he has a grade 3 ulcer. His updated foot x-ray report was reviewed which suggest remaining osteomyelitis at the amputation site. An imaging CD will be requested for further review as well. We initially discussed the etiology of his ulcers and basics of comprehensive wound healing plan including proper offloading, diabetic control, need for serial debridements, infection management, vascular perfusion requirements, and nutritional supplementation. We also discussed advanced treatment such as additional foot surgeries and hyperbaric oxygen therapy. He is not able to proceed with hyperbaric oxygen due to his recent claustrophobia. I recommended behavioral health consultation and a phone number was provided today. His abrupt discontinuation of pain and gabapentin medications may be contributing to this. A referral to a new pain management clinic was provided closer to [place]. I also offered other locations depending on where he plans on staying. He continues to walk on his foot and I advised him to wear a cam walker boot and to use an assistive device to keep pressure off of the site. He understands attention of pressure in a repetitive manner to the site will not allow healing. A previous prescription for a cam walker boot with offloading dual density Plastizote liners were provided. I recommend improved glycemic control for any hemoglobin A1c over 7.5% is associated with a poor healing outcome for surgical and nonsurgical care. I recommend nutritional supplementation and a prescription was provided for Vinicius nutritional supplementation combination with a well balanced high-protein and high nutrient diet. Continue follow-up with his infectious disease specialist as advised. I reviewed his recent noninvasive vascular studies which demonstrated biphasic waveforms to the ankle level and an CRISTINA on the right side of 0.64 and left 0.86. This is consistent with vascular impairment and his prior intervention with his vascular surgeon is noted. He is scheduled to follow-up with him soon and I advised him to do so. He relates his a schedule for 1 month in the near future and he will call to see if an earlier appointment is available. We discussed at length the benefits and indications of hyperbaric oxygen therapy as an adjunctive treatment to the standard wound healing treatment components. He admits he is very claustrophobic and he is unable to anterior chamber for treatment time. We discussed potential sedation options and I do not recommend this at this time because he has to drive after each treatment session for he is traveling from out of state. He will consider this if his claustrophobia improves. If he elects to proceed, he understands he must have an ejection fraction over 40% and update his diagnostic data to ensure safety such as an EKG, chest x-ray, and CBC, and CMP. He understands he is at risk for continued limb loss and even from this complex condition. It is noted a below-knee amputation was recommended from another provider. We discussed potential foot surgeries including revisional midfoot amputation, soft tissue mobilization and debridement, application of advanced wound healing product such as amnio fill, and considerations for posterior lower leg lengthening procedures if appropriate. He will think about this as well over the next week and I would like to review his foot x-ray imaging studies, vascular surgery updated plan, and patient intent prior to scheduling this. I answered all his questions. I recommend he follows up with the wound healing center next week or call sooner if he has any questions or concerns.
[2019-03-23 15:24] VITALS: BP 154/88; PULSE 97; RESP 16; TEMP 36.5; BMI 28.4
--- NOTE | 2019-03-23 17:30 | PN.PCM_ITS ---
(1) Non-pressure chronic ulcer of other part of right foot with fat layer exposed Status: Chronic Current Visit: Yes Code(s): L97.512 - Non-pressure chronic ulcer of other part of right foot with fat layer exposed (2) Type 2 diabetes mellitus with diabetic polyneuropathy Status: Chronic Current Visit: Yes Code(s): E11.42 - Type 2 diabetes mellitus with diabetic polyneuropathy (3) Amputation at midfoot Status: Chronic Current Visit: Yes Qualifiers: Encounter type: sequela Laterality: right Qualified Code(s): S98.311S - Complete traumatic amputation of right midfoot, sequela Code(s): S98.319A - Complete traumatic amputation of unspecified midfoot, initial encounter (4) Osteomyelitis of right foot Status: Chronic Current Visit: Yes Qualifiers: Osteomyelitis type: subacute Qualified Code(s): M86.271 - Subacute osteomyelitis, right ankle and foot Code(s): M86.9 - Osteomyelitis, unspecified (5) Stage 2 chronic kidney disease Status: Chronic Current Visit: Yes Code(s): N18.2 - Chronic kidney disease, stage 2 (mild) (6) Smoker Status: Chronic Current Visit: Yes Code(s): F17.200 - Nicotine dependence, unspecified, uncomplicated (7) PVD (peripheral vascular disease) Status: Chronic Current Visit: Yes Code(s): I73.9 - Peripheral vascular disease, unspecified (8) Malnutrition Status: Chronic Current Visit: Yes Code(s): E46 - Unspecified protein- calorie malnutrition (9) Delayed wound healing Status: Chronic Current Visit: Yes Code(s): T14.8XXD - Other injury of unspecified body region, subsequent encounter (10) Claustrophobia Status: Acute Current Visit: Yes Code(s): F40.240 - Claustrophobia (11) Chronic pain Status: Chronic Current Visit: Yes Code(s): G89.29 - Other chronic pain Type of Wound Date of Service: 03/23/19 Chief Complaint: Right foot ulcers History of Wound: This 58-year-old male with multiple comorbidities with self referred for hyperbaric oxygen therapy consideration and to see if any other interventions are available for his treatment of nonhealing right foot ulcers. His medical records from outside facilities and previous wound healing center provider were reviewed in detail with the following summary: 02/26/18 Left superficial femoral artery diffuse 70-75% disease. S/p [employer] using drug coated balloons. 03/15/18 MRI right foot-osteomyelitis involving the proximal and distal phalanx of the great toe with suspected septic arthritis. 03/18/19 Pathology: Right great toe amputation due to acute osteomyelitis. Resection margin appears to be viable and uninvolved. 07/27/18 xray right foot findings: The patient is post amputation of the first toe at the MTP joint. There is fragmentation and bony destruction of the remnant of the first metatarsal. There is bony destruction and pathological fracture through the second proximal phalanx. There is a slight step off the third metatarsal head suggesting an early area of fragmentation. The third and fourth digits are intact. There is lucency of the fifth metatarsal head which might represent subtle osteomyelitis although this is probably normal. Hindfoot and midfoot generally unremarkable. THere is soft tissue swelling and arterial calcification noted. Impression: areas of osteomyelitis as described above. 08/03/18 Pathology: 2nd, 34d, 4th, 5th toes right foot: four toes, three of which exhibit gangrene. Two of the toes show underlying acute osteomyelitis. The resected margins of all the toes are free of the acute osteomyelitis. The soft tissue resected margins are viable. 09/09/18 Echocardiogram Systolic LV function (EF 50%). Grade 1 diastolic dysfunction. Mild LV hypertrophy. Left atrium mildly dilated. 01/25/19 MRI right foot: Large deep ulceration/intact abscess with a tract extending to the tip of the remaining fourth metatarsal where findings of osteomyelitis are present. The bone edema extends to the proximal portion of the bone. There is induration or early ulceration also surrounding the first metatarsal distally. Underlying osteomyelitis cannot be excluded. He was recently hospitalized 02/09/19 at for bacterial abscess involving the right foot likely due to polymicrobial organism. The previous wound culture showed Enterobacter cloacae on 07/27/18. Right foot osteomyelitis which is again due to polymicrobial organism. CAD, DM, HTN, GERD, Arthritis, Renal insufficiency, Hiatal hernia , sleep apnea, COPD. He was treated with Zosyn and Vancomycin. They wanted to place a PICC line and give IV antibiotics for six weeks. The patient refused to stay and refused the PICC line. He is afraid the antibiotics would damage his kidneys and his CKD stage 2. He left the hospital against medical advice. There is a note stating that the patient would like hyperbaric oxygen treatment. According to Dr. Wily Shen on 02/11/19 he states he does not feel that HBOT will improve or resolve his current infection. Patient left the hospital AMA. Upon continued evaluation during today's clinical visit, the patient is not interested in a below the knee amputation at this time, he is adamant about following up with his previous vascular surgeon and is scheduled for this upcoming week. He is traveling from about an hour and a half now and is currently residing in [place]. it is apparent that the patient is very claustrophobic it does not think he would be able to enter one of the chambers for treatment. He did obtain an updated foot x-ray and obtained the CD copy. He is been offloading with a cam walker boot as advised to take pressure off of the site. He relates he is no longer able to follow-up at his previous pain management clinic and he was abruptly taken off of large amounts of Percocet and gabapentin. He takes one gabapentin from his friend daily and is seeking a new pain management clinic. She was not able to make contact with the referral site last week and asked for a new referral today that is local. He is with his friend today. Progress of Wound: Stable - Physical Exam Vital Signs Temp Pulse Resp BP 97.7 F L 97 16 154/88 H 03/23/19 15:24 03/23/19 15:24 03/23/19 15:24 03/23/19 15:24 General: Alert, Oriented x3, Cooperative, No apparent distress HEENT: Atraumatic Extremities: No cyanosis, Capillary Refill Less than 3 Seconds, No Calf Tenderness, Diminished Peripheral Pulses, Edema - mild Skin: Ulcer/ Wound - No purulence, no erythema, streaking, no odor, no necrosis noted. There is positive probing to deep structures and the open ulcer sites are communicating. His skin is hairless and atrophic Wound Measurements and Assessment WC - Nurse 1 - General Ulcer Measurement Start: 03/09/19 15:17 Freq: Status: Active Protocol: Activity Type Activity Date Activity User E-Sign Co-Sign Detail Recorded Client Recorded Date Recorded By Document 03/23/19 15:24 [facility] [id number] 03/23/19 15:35 BM[facility] 03/23/19 15:24 Wound Center Nurse 1 [Ulcer Assessment] #3 Right 4th Met Head -Combined with other wound No -Current Size (cm) - Length 0.7 -Current Size (cm) - Width 0.1 -Current Size (cm) - Depth 0.7 -Total Square Cm 0.07 -Photo Taken No -Epithelialization None Present -Tunneling No -Undermining/Tunneling No -Circular Undermining No -Exudate Amt Small -Exudate Type Purulent -Wound Margin Distinct, Outline Attached -Granulation Amt Large (67-100%) -Granulation Quality [place] -Slough/Fibrin No -Necrosis Amt None Present (0 %) -Texture (Lawanda-wound Skin Appearance) Assessed -Moisture (Lawanda-wound Skin Appearance Assessed ) -Color (Lawanda-wound Skin Appearance) Assessed -Temperature (Lawanda-wound Skin No Abnormality Appearance) (Pt Warm) -Tenderness on Palpation (Lawanda-wound No Skin Appearance) -Ulcer Cleansing Rinsed/ Irrigated with Saline -Foul Odor after Cleansing No -Anesthetic Used 5% Lidocaine Gel #2 Right 5th Met Head -Combined with other wound No -Current Size (cm) - Length 1.3 -Current Size (cm) - Width 1 -Current Size (cm) - Depth 0.7 -Total Square Cm 1.3 -Photo Taken No -Epithelialization Small 1-33% -Tunneling No -Undermining/Tunneling No -Circular Undermining No -Exudate Amt Small -Exudate Type Serosanguineous -Wound Margin Distinct, Outline Attached -Granulation Amt Small (1-33%) -Granulation Quality Pale,Red -Slough/Fibrin Yes -Necrosis Amt Medium (34-66%) -Necrotic Tissue Type Adherent Slough -Texture (Lawanda-wound Skin Appearance) Assessed, Scarring -Moisture (Lawanda-wound Skin Appearance Assessed, ) Maceration -Color (Lawanda-wound Skin Appearance) Assessed,Palor -Temperature (Lawanda-wound Skin No Abnormality Appearance) (Pt Warm) -Tenderness on Palpation (Lawanda-wound No Skin Appearance) -Ulcer Cleansing Rinsed/ Irrigated with Saline -Foul Odor after Cleansing No -Anesthetic Used 5% Lidocaine Gel #1 Right Foot Plantar -Combined with other wound No -Current Size (cm) - Length 0.4 -Current Size (cm) - Width 0.1 -Current Size (cm) - Depth 0.5 -Total Square Cm 0.04 -Photo Taken No -Epithelialization None Present -Tunneling No -Undermining/Tunneling No -Circular Undermining No -Exudate Amt None Present -Wound Margin Distinct, Outline Attached -Granulation Amt Large (67-100%) -Granulation Quality [place] -Slough/Fibrin No -Necrosis Amt None Present (0 %) -Texture (Lawanda-wound Skin Appearance) Assessed, Scarring -Moisture (Lawanda-wound Skin Appearance Assessed ) -Color (Lawanda-wound Skin Appearance) Assessed -Temperature (Lawanda-wound Skin No Abnormality Appearance) (Pt Warm) -Tenderness on Palpation (Lawanda-wound No Skin Appearance) -Ulcer Cleansing Rinsed/ Irrigated with Saline -Foul Odor after Cleansing No -Anesthetic Used 5% Lidocaine Gel Musculoskeletal: No Tenderness to Palpation of Joints or Extremities, Muscle Wasting Neurological: - - Lack of normal epicritic sensation light touch is consistent with neuropathy Psych/Mental Status: Normal Affect, Appropriate Debridement Note Post-Debridement Measurements/Treatment WC - Nurse 2 - General Ulcer CM Notes Start: 03/09/19 15:17 Freq: Status: Active Protocol: Activity Type Activity Date Activity User E-Sign Co-Sign Detail Recorded Client Recorded Date Recorded By Document 03/09/19 15:38 [id number] 03/09/19 15:52 Document 03/16/19 15:39 [id number] 03/16/19 15:46 03/09/19 03/16/19 15:38 15:39 Wound Center Nurse 2 #3 Right 4th Met Head -Time 15:47 15:41 -Correct Patient Yes Yes -Correct Side, Site, Position Yes Yes -Correct Procedure Yes Yes -Procedure Performed Yes Yes -Type of Procedure Debridement Debridement -Clinical Debridement Subcutaneous Subcutaneous -Post Debridement Size (cm) - Length 0.2 0.8 -Post Debridement Size (cm) - Width 0.2 0.2 -Post Debridement Size (cm) - Depth 0.4 0.4 -Total Square Cm 0.04 0.16 -Wound/Ulcer Outcome Not Healed Not Healed -Ulcer Cleansing Rinsed/ Rinsed/ Irrigated with Irrigated with Saline Saline -Foul Odor after Cleansing No No -Bioengineered Tissue No No -Bleeding Controlled with NA,Pressure Pressure -Offloading Yes Yes -Type of Offloading Surgical Shoe Camwalker -Treatment Response Procedure Procedure Tolerated Well Tolerated Well #2 Right 5th Met Head -Time 15:48 15:45 -Correct Patient Yes Yes -Correct Side, Site, Position Yes Yes -Correct Procedure Yes Yes -Procedure Performed Yes Yes -Type of Procedure Debridement Debridement -Clinical Debridement Subcutaneous Subcutaneous -Post Debridement Size (cm) - Length 1 1.2 -Post Debridement Size (cm) - Width 1 1.1 -Post Debridement Size (cm) - Depth 0.8 0.7 -Total Square Cm 1 1.32 -Wound/Ulcer Outcome Not Healed Not Healed -Ulcer Cleansing Rinsed/ Rinsed/ Irrigated with Irrigated with Saline Saline -Foul Odor after Cleansing No No -Bioengineered Tissue No No -Bleeding Controlled with Pressure Pressure -Offloading Yes -Type of Offloading Surgical Shoe Camwalker -Treatment Response Procedure Procedure Tolerated Well Tolerated Well #1 Right Foot Plantar -Time 15:48 15:45 -Correct Patient Yes Yes -Correct Side, Site, Position Yes Yes -Correct Procedure Yes Yes -Procedure Performed Yes Yes -Type of Procedure Debridement Debridement -Clinical Debridement Subcutaneous Subcutaneous -Post Debridement Size (cm) - Length 0.6 0.5 -Post Debridement Size (cm) - Width 0.4 0.3 -Post Debridement Size (cm) - Depth 0.5 0.7 -Total Square Cm 0.24 0.15 -Wound/Ulcer Outcome Not Healed Not Healed -Ulcer Cleansing Rinsed/ Rinsed/ Irrigated with Irrigated with Saline Saline -Foul Odor after Cleansing No No -Bioengineered Tissue No No -Bleeding Controlled with Pressure Pressure -Offloading Yes Yes -Type of Offloading Surgical Shoe Camwalker -Treatment Response Procedure Procedure Tolerated Well Tolerated Well Pain Scale: 0-10 Numeric Is Patient Pain Free? Yes Yes Wound debrided: distal foot Laterality: Right Wound Grade/Stage: grade 3 Type of Debridement: Excisional debridement Anesthesia Used: 5% Lidocaine Gel Depth: in the subcutaneous layer Percentage of wound debrided: 100 Instrument Used: #15 blade Tissue Removed: fibrous, devitalized subcutaneous, biofilm, slough Severity: Fat Layer Exposed Amount of bleeding with debridement: Mild Bleeding Controlled with: Pressure Patient tolerated procedure well Assessment/Plan Active Problems Osteomyelitis of right foot (Chronic) Stage 2 chronic kidney disease (Chronic) Smoker (Chronic) PVD (peripheral vascular disease) (Chronic) Type 2 diabetes mellitus with diabetic polyneuropathy (Chronic) Amputation at midfoot (Chronic) Non-pressure chronic ulcer of other part of right foot with fat layer exposed (Chronic) Malnutrition (Chronic) Delayed wound healing (Chronic) Claustrophobia (Acute) Chronic pain (Chronic) Assessment: Right foot ulcer with fat layer exposed and recently treated infectious myositis and concern of osteomyelitis. Amputation right foot. Delayed healing. Malnutrition suspected. Uncontrolled diabetes with neuropathy, hemoglobin A1c of 9.2%. Multiple other comorbidities. Recent exacerbation of claustrophobia. Chronic pain Plan: I reviewed and discussed his case. Subcutaneous excisional debridement was performed today as noted in the clinical panel. He tolerated this well. He was advised to continue with silver alginate deep packing dressing to the communicating cluster sites. He was reassured no purulence was noted today. As noted he is on antibiotics and he is advised to continue this. To monitor for development of local infection or systemic illness in which neither is noted today. Upon information obtained from medical records in combination with his clinical presentation, it is apparent he has a grade 3 ulcer. His updated foot x-ray report was reviewed which suggest remaining osteomyelitis at the amputation site. An imaging CD was obtained and reviewed. It is apparent he has had a prior transmetatarsal amputation and there is some hypertrophy noted at and near all remaining metatarsals with osseous prominence. We initially discussed the etiology of his ulcers and basics of comprehensive wound healing plan including proper offloading, diabetic control, need for serial debridements, infection management, vascular perfusion requirements, and nutritional supplementation. We also discussed advanced treatment such as additional foot surgeries and hyperbaric oxygen therapy. He is not able to proceed with hyperbaric oxygen due to his recent claustrophobia. I recommended behavioral health consultation last week. He relates his abnormal thoughts, hallucinations, and anxiety have decreased since he takes 1 gabapentin daily. A pain management referral was provided for local location with Dr. Hanson and he was encouraged to get established now that he is residing in [place]. He continues to walk on his foot and I advised him to wear a cam walker boot and to use an assistive device to keep pressure off of the site. He understands attention of pressure in a repetitive manner to the site will not allow healing. A previous prescription for a cam walker boot with offloading dual density Plastizote liners were provided. I recommend improved glycemic control for any hemoglobin A1c over 7.5% is associated with a poor healing outcome for surgical and nonsurgical care. I recommend nutritional supplementation and a prescription was provided for Vinicius nutritional supplementation combination with a well balanced high-protein and high nutrient diet. Continue follow-up with his infectious disease specialist as advised. I reviewed his recent noninvasive vascular studies which demonstrated biphasic waveforms to the ankle level and an CRISTINA on the right side of 0.64 and left 0.86. This is consistent with vascular impairment and his prior intervention with his vascular surgeon is noted. He is scheduled to follow-up with him soon and I advised him to do so. He was able to move his appointment up by 1 week. We discussed at length the benefits and indications of hyperbaric oxygen therapy as an adjunctive treatment to the stand yany wound healing treatment components. He admits he is very claustrophobic and he is unable to anterior chamber for treatment time. We discussed potential sedation options and I do not recommend this at this time because he has to drive after each treatment session for he is traveling from out of state. He will consider this if his claustrophobia improves. If he elects to proceed, he understands he must have an ejection fraction over 40% and update his diagnostic data to ensure safety such as an EKG, chest x-ray, and CBC, and CMP. He understands he is at risk for continued limb loss and even from this complex condition. It is noted a below-knee amputation was recommended from another provider. We discussed potential foot surgeries including revisional midfoot amputation, soft tissue mobilization and debridement, application of advanced wound healing product such as amnio fill, and considerations for posterior lower leg lengthening procedures if appropriate. He will think about this as well over the next week and I would like to review his vascular surgery updated plan, and patient intent prior to scheduling this. After reviewing x- rays today if he is perfusing it looks like a revisional transmetatarsal amputation would be appropriate. I answered all his questions. I recommend he follows up with the wound healing center next week or call sooner if he has any questions or concerns.
== END 2019-04-02 23:59 ==
LOC: WC 15:30
PROVIDERS: Referring Provider Nurse Practitioner Family; Visit Provider Nurse Practitioner Family
DX: E11.621 Type 2 diabetes mellitus with foot ulcer (principal); E11.42 Type 2 diabetes mellitus with diabetic polyneuropathy; L97.512 Non-pressure chronic ulcer of other part of right foot with fat layer exposed; E11.51 Type 2 diabetes mellitus with diabetic peripheral angiopathy without gangrene; M86.271 Subacute osteomyelitis, right ankle and foot; E11.22 Type 2 diabetes mellitus with diabetic chronic kidney disease; N18.2 Chronic kidney disease, stage 2 (mild); F17.200 Nicotine dependence, unspecified, uncomplicated; I12.9 Hypertensive chronic kidney disease with stage 1 through stage 4 chronic kidney disease, or unspecified chronic kidney disease; K21.9 Gastro-esophageal reflux disease without esophagitis; M19.90 Unspecified osteoarthritis, unspecified site; G47.30 Sleep apnea, unspecified; J44.9 Chronic obstructive pulmonary disease, unspecified; E11.65 Type 2 diabetes mellitus with hyperglycemia; F40.240 Claustrophobia; Z89.411 Acquired absence of right great toe
CPT/HCPCS: 11042; 93923

== ENCOUNTER → 2019-04-13 14:46 | Outpatient (CLI) | payer MEDICARE, SELFPAY ==
[2019-04-06 15:58] VITALS: BMI 28.4
[2019-04-13 15:51] LABS: Absolute Lymphocyte Count 2.33 X10^3/uL (0.83-4.51); Absolute Neutrophil Count 5.2 X10^3/uL (2.0-7.7); Basophil# 0.08 X10^3/uL; Basophil% 0.9 % (0-1); Eosinophil# 0.43 X10^3/uL; Eosinophils% 4.9 % (0-5); Hematocrit 33.7 % (40-54); Hemoglobin 10.5 g/dL (13.0-16.5); Lymphocyte # 2.33 X10^3/ul (4.0); Lymphocyte % 26.8 % (19-41); Mean Corp Hgb Conc 31.2 g/dL (32-36); Mean Corpuscular Hgb 28.4 pg (27.0-32.0); Mean Corpuscular Volume 91.1 fL (80-94); Mean Platelet Vol. 11.1 fl (6.2-12.0); Monocyte# 0.67 X10^3/uL; Monocyte% 7.7 % (0-10); NRBC Flagged by Analyzer 0 % (0-5); Neutrophil # 5.17 X10^3/uL (2.7-7.7); Neutrophil % 59.6 % (47-70); Platelet Count 256 K/mm3 (150-450); RBC Distribution Width CV 15.2 % (11.6-14.6); RBC Distribution Width SD 50.4 fl (35.1-43.9); White Blood Count 8.7 K/mm3 (4.4-11.0)
[2019-04-13 15:55] LABS: Prothrombin Time (Protime)PT. 13.2 SECONDS (11.7-14.9)
[2019-04-13 16:09] LABS: Hemoglobin A1c 7.3 % (4.2-6.3)
[2019-04-13 16:15] LABS: ALB/GLOB Ratio 0.8 RATIO (0.9-2.4); AST(SGOT) 23 U/L (15-37); Alanine Aminotransfer ALT/SGPT 23 U/L (16-61); Alkaline Phosphatase 96 U/L (45-117); Anion Gap 4 (5-15); BUN 45 mg/dL (7-18); BUN/Creat Ratio 31.5 RATIO (10-20); Calcium,Total 8.4 mg/dL (8.5-10.1); Chloride 109 mmol/L (98-107); Creatinine, Serum 1.43 mg/dL (0.70-1.30); EST Glomerular Filtration Rate 54 mL/min (>60); Est Glom Filt Rate - Afr Amer 65 mL/min (>60); Globulin 3.7 g/dL (2.2-4.2); Glucose 179 mg/dL (74-106); Protein, Total 6.7 g/dL (6.4-8.2); Sodium Level 138 mmol/L (136-145)
== END ==
PROVIDERS: Visit Provider Family Medicine
DX: Z01.818 Encounter for other preprocedural examination (principal)
CPT/HCPCS: 36415; 80053; 83036; 85025; 85610

== ENCOUNTER 2019-04-19 16:58 | Inpatient (IN) | payer MEDICARE, SELFPAY ==
[2019-04-06 15:58] VITALS: BMI 28.4
[2019-04-13 15:35] VITALS: BMI 28.4
[2019-04-19] VITALS (11 sets, daily range): BP systolic 124–192; BP diastolic 75–102; PULSE 78–93; RESP 16–20; TEMP 36.3–36.4; O2SAT 92–98; BMI 28.3; BMI 27.8
[2019-04-19 12:50] LABS: Bedside Glucose 114 mg/dL (70-110)
--- NOTE | 2019-04-19 13:22 | EKG12_ITS ---
Test Reason : Blood Pressure : / mmHG Vent. Rate : 084 BPM Atrial Rate : 084 BPM P-R Int : 142 ms QRS Dur : 088 ms QT Int : 350 ms P-R-T Axes : 070 042 057 degrees QTc Int : 413 ms Normal sinus rhythm Normal ECG No previous ECGs available Confirmed by CRISTIAN STUBBS, OLIVER ([id number]), film and video editor [place] DAO ([id number] on 04/25/2019 12:56:34 PM Referred By: Tasia Villasenor Confirmed By:WENDY FOSTER MD
[2019-04-19] MEDS: Lactated Ringers 1,000 ML 100 ML IV ×2 (13:23→20:04)
[2019-04-19 14:46] LABS: Anion Gap 2 (5-15); BUN 37 mg/dL (7-18); BUN/Creat Ratio 28.5 RATIO (10-20); Calcium,Total 8.4 mg/dL (8.5-10.1); Chloride 113 mmol/L (98-107); EST Glomerular Filtration Rate 60 mL/min (>60); Est Glom Filt Rate - Afr Amer 72 mL/min (>60); Estimated Creatinine Clearance 60.43 ml/min; Glucose 94 mg/dL (74-106); Magnesium 2.1 mg/dL (1.6-2.6); Potassium 6.1 mmol/L (3.5-5.1); Sodium Level 141 mmol/L (136-145)
--- NOTE | 2019-04-19 14:54 | SUR.PREOP ---
lab called with K= 6.[address] jett
--- NOTE | 2019-04-19 15:05 | PCM.HP.STD ---
Problem List (1) Stage 2 chronic kidney disease Status: Chronic (2) COPD (chronic obstructive pulmonary disease) Status: Chronic (3) Type 2 diabetes mellitus with diabetic polyneuropathy Status: Chronic (4) Amputation at midfoot Status: Chronic Qualifiers: (5) Delayed wound healing Status: Chronic History of Present Illness Date of Admission: 04/19/19 Chief Complaint: Chronic right foot ulcer The patient is a 58 year old M with significant past medical history of vascular disease with restorative intervention, coronary artery disease, diabetes with neuropathy, stage II chronic kidney disease, COPD, current smoker continues to have delayed healing of the right foot with a prior midfoot amputation. He presented today for transmetatarsal revisional amputation and was identified had elevated potassium with some T wave peaking with preoperative labs. He denies chest pain, dizziness, weakness, shortness of breath, fatigue, fever, chill, nausea, vomiting. He denies formal medication or recent dietary changes. He relates he started a 'root' medication he found online that is supposed to help his neuropathy. Past Medical History Past Medical History (Chronic Problems): Chronic Problems Type 2 diabetes mellitus (Chronic) Right foot ulcer (Chronic) Stage 2 chronic kidney disease (Chronic) Smoker (Chronic) COPD (chronic obstructive pulmonary disease) (Chronic) PVD (peripheral vascular disease) (Chronic) Type 2 diabetes mellitus with diabetic polyneuropathy (Chronic) Amputation at midfoot (Chronic) Non-pressure chronic ulcer of other part of right foot with fat layer exposed (Chronic) Malnutrition (Chronic) Delayed wound healing (Chronic) Chronic pain (Chronic) Allergies No Known Allergies Allergy (Verified 04/19/19 12:45) Home Medications: Ambulatory Orders Medication Instructions Recorded Clopidogrel Bisulfate [Plavix] 75 mg PO DAILY 03/02/19 Insulin Detemir [Levemir Flextouch] 32 unit SQ QHS 03/02/19 Omeprazole [Prilosec] 20 mg PO BID 03/02/19 Aspirin 81 mg PO DAILY 04/19/19 Cilostazol [Pletal] 50 mg PO DAILY 04/19/19 Furosemide [Lasix] 40 mg PO 04/19/19 Gabapentin 600 mg PO DAILY 04/19/19 Liraglutide [Victoza] 12 unit SQ DAILY 04/19/19 Oxycodone HCl/Acetaminophen 1 tab PO DAILY 04/19/19 [Percocet 10-325 mg Tablet] Surgical History: cholecystectomy, - - Right foot amputation Psychiatric History: Post traumatic stress Lives: With Family - Daughter and 2 grandchildren Smoking Status: Current every day smoker Alcohol: None - Quit 2013 - *Family History Maternal History Items: Heart Disease Paternal History Items: - - Alcoholism Review of Systems Constitutional: Denies: Fever, Fatigue Eyes: Reports: Vision Change HEENT: Reports: Hard of Hearing Cardiovascular: Denies: Chest Pain, Claudication, Edema, Orthopnea Respiratory: Denies: Shortness of Breath Gastrointestinal: Denies: Nausea, Vomiting Genitourinary: Denies: Incontinence Musculoskeletal: Denies: Foot Pain, Leg Pain, Muscle pain Skin: Reports: Skin Changes, Wounds. Denies: Pruritis Neurological: Reports: Balance problems, Incoordination, Numbness, Tingling Psychiatric: Reports: Anxiety VTE Information - Inpt Only VTE Present on Admission: No VTE Mechan Device Prophylaxis: SCD's VTE Pharm Prophylaxis ordered?: Yes - Physical Exam Vitals/I&O's: Vital Signs Temp Pulse Resp BP Pulse Ox 97.4 F L 85 16 151/83 H 96 04/19/19 13:15 04/19/19 13:15 04/19/19 13:15 04/19/19 13:15 04/19/19 13:15 Oxygen Delivery Method Room Air Weight: 88.178 kg Body Mass Index (BMI) 28.3 General: Alert, Oriented x3, Cooperative HEENT: Atraumatic, EOMI Oral: Moist Mucosa Lungs: Normal air movement Cardiovascular: Regular rate Extremities: No cyanosis, Capillary Refill Less than 3 Seconds - Right amputation stump site, No Calf Tenderness - Negative Jenny and Weaver sign bilateral, Diminished Peripheral Pulses, Edema Skin: Ulcer/ Wound - Skin discontinuity to right central and central lateral foot amputation stump site with positive probe to bone and fibrinous drainage. There is no erythema, string, odor, infection or eschar. His peripheral skin is hairless and atrophic Musculoskeletal: No Tenderness to Palpation of Joints or Extremities, Muscle Wasting, - - Right midfoot amputation. Compartments are soft to palpate right lower extremity Neurological: - - Lack of normal epicritic sensation light touch consistent with neuropathy status Psych/Mental Status: Normal Affect, Appropriate Laboratory Results 04/19/19 12:46: POC Glucose 114 H 04/19/19 14:00: Sodium 141, Potassium 6.1 H*, Chloride 113 H, Carbon Dioxide 26.0, Anion Gap 2 L, BUN 37 H, Creatinine 1.30, Estim Creat Clear Calc 60.43, Est GFR (MDRD) Af Amer 72, Est GFR (MDRD) Non-Af 60, BUN/Creatinine Ratio 28.5 H, Glucose 94, Calcium 8.4 L, Magnesium 2.1 Current Medications Lactated Ringer's () 1,000 mls @ 100 mls/hr IV .Q10H ZEUS Last Admin: 04/19/19 13:23 Dose: 100 mls/hr Documented by: Assessment/Plan All Active Problems Claustrophobia (Acute) Hyperkalemia Chronic right foot ulcers with previously diagnosed osteomyelitis Diabetes with neuropathy Chronic kidney disease COPD Coronary artery disease Peripheral vascular disease status post intervention including superficial femoral artery stenting Smoker Delayed healing I reviewed and discussed his case. During preoperative screening it was noted he had elevated potassium (6.1) and EKG changes (T wave peaking). He is clinically asymptomatic. His surgical case was cancelled and he will be admitted for hyperkalemia with cardiac arrhythmia. I will contact the medical team and facilitate his admission. This case was reviewed promptly with Dr. Stovall and he was started on calcium gluconate and insulin. He will be admitted to the PCU. Medical management and DVT prophylaxis per primary team is greatly appreciated. It is noted his Plavix and Pletal are held at this time and he continues on 81 mg of aspirin. His foot is not grossly infected at this time however there is suspected chronic osteomyelitis which surgical intervention will be considered once he is better stabilized. A dressing will be reapplied and he was advised to keep weight off the right foot. Please do not hesitate to call if questions. Tasia Villasenor DPM, [facility] [phone]
--- NOTE | 2019-04-19 15:37 | EKG12_ITS ---
Test Reason : PRE-OP Blood Pressure : / mmHG Vent. Rate : 081 BPM Atrial Rate : 081 BPM P-R Int : 146 ms QRS Dur : 082 ms QT Int : 348 ms P-R-T Axes : 071 047 046 degrees QTc Int : 404 ms Normal sinus rhythm Normal ECG Confirmed by PERRI STUBBS, MARCELLE ([id number]), city editor HECTOR MONCADA ([id number]) on 04/20/2019 1:33:23 PM Referred By: Tasia Villasenor Confirmed By:MARCELLE RAYO MD
[2019-04-19] MEDS: Sodium Polystyrene Sulfonate 15 GM/60 ML UDC 30 GM PO (16:11)
[2019-04-19] MEDS: Insulin Lispro 10 UNIT in Syringe 0 ML 6 UNIT IV (16:12)
[2019-04-19] MEDS: Polyethylene Glycol 3350 17 GM PACKET 34 GM PO (16:13)
[2019-04-19] MEDS: Dextrose 10%-Water 250 ML 999 ML IV (17:09)
--- NOTE | 2019-04-19 17:34 | PCM.CONS.GEN ---
Problem List (1) Claustrophobia Status: Chronic (2) Amputation at midfoot Status: Chronic Qualifiers: (3) COPD (chronic obstructive pulmonary disease) Status: Chronic (4) Chronic pain Status: Chronic (5) Delayed wound healing Status: Chronic (6) Malnutrition Status: Chronic (7) Non-pressure chronic ulcer of other part of right foot with fat layer exposed Status: Chronic (8) PVD (peripheral vascular disease) Status: Chronic (9) Right foot ulcer Status: Chronic (10) Smoker Status: Chronic (11) Stage 2 chronic kidney disease Status: Chronic (12) Type 2 diabetes mellitus Status: Chronic (13) Type 2 diabetes mellitus with diabetic polyneuropathy Status: Chronic (14) Osteomyelitis of right foot Status: Suspected Qualifiers: Osteomyelitis type: subacute Qualified Code(s): M86.271 - Subacute osteomyelitis, right ankle and foot (15) Hyperkalemia Status: Acute (16) CKD stage 3 due to type 2 diabetes mellitus Status: Chronic Reason for Consult Date of Consultation: 04/19/19 Reason for Consultation: Hyperkalemia History of Present Illness: The patient is a 58 year old M with history of diabetic foot, chronic nonhealing ulcer at lateral margin of right foot metatarsal scar site with suspicion of osteomyelitis while scheduled for elective outpatient surgery by Dr. Langley but was canceled secondary to hyperkalemia. On labs, K6.1, creatinine 1.3, BUN 37, CO2 26, anion gap 2. Magnesium 2.1. Glucose 94. As per previous lab on 04/13 2019: BUN 45, creatinine 1.43, K5.0. Kidney function is improved. As per the patient he was started taking herbal medication nerve shield plus as he was not getting relief from gabapentin. With gabapentin, patient was having more anxiety and restlessness issues. EKG was done in preop shows normal sinus rhythm with peaked T waves in V1 to V3. T waves are peaked then direct of previous EKG 04/13/2019. Patient was given immediately hyperkalemia cocktail including calcium gluconate and Kayexalate. Patient had echo in July 2018 which reported EF 50%, grade 1 diastolic dysfunction, LA mildly enlarged, suggestive of chronic heart failure with preserved EF Patient has chronic comorbidities of coronary artery disease status post stent about 2 to 3 years ago, COPD, diabetes mellitus, peripheral arterial disease status post PCI and stenting in SFA last 1 in August 2018. [] Past Medical History Past Medical History (Chronic Problems): Chronic Problems Type 2 diabetes mellitus (Chronic) Right foot ulcer (Chronic) Stage 2 chronic kidney disease (Chronic) Smoker (Chronic) COPD (chronic obstructive pulmonary disease) (Chronic) PVD (peripheral vascular disease) (Chronic) Type 2 diabetes mellitus with diabetic polyneuropathy (Chronic) Amputation at midfoot (Chronic) Non-pressure chronic ulcer of other part of right foot with fat layer exposed (Chronic) Malnutrition (Chronic) Delayed wound healing (Chronic) Claustrophobia (Chronic) Chronic pain (Chronic) CKD stage 3 due to type 2 diabetes mellitus (Chronic) Allergies No Known Allergies Allergy (Verified 04/19/19 12:45) Home Medications: Ambulatory Orders Medication Instructions Recorded Clopidogrel Bisulfate [Plavix] 75 mg PO DAILY 03/02/19 Insulin Detemir [Levemir Flextouch] 32 unit SQ QHS 03/02/19 Omeprazole [Prilosec] 20 mg PO BID 03/02/19 Aspirin 81 mg PO DAILY 04/19/19 Cilostazol [Pletal] 50 mg PO DAILY 04/19/19 Furosemide [Lasix] 40 mg PO 04/19/19 Gabapentin 600 mg PO DAILY 04/19/19 Liraglutide [Victoza] 12 unit SQ DAILY 04/19/19 Oxycodone HCl/Acetaminophen 1 tab PO DAILY 04/19/19 [Percocet 10-325 mg Tablet] Surgical History: cholecystectomy, - - Right foot amputation Psychiatric History: Post traumatic stress Lives: With Family - Daughter and 2 grandchildren Smoking Status: Current every day smoker Alcohol: None - Quit 2013 - *Family History Maternal History Items: Heart Disease Paternal History Items: - - Alcoholism Review of Systems Constitutional: Denies: Chills, Fever, Weight Change HEENT: Denies: Head Aches, Sinus Congestion, Sinus Drainage Cardiovascular: Denies: Chest Pain, Palpitations Respiratory: Denies: Cough, Hemoptysis, Pleuritic Pain, Shortness of breath at rest, Sputum production Gastrointestinal: Denies: Abdominal Pain, Constipation, Diarrhea, Nausea, Vomiting Genitourinary: Denies: Dysuria Musculoskeletal: Denies: Joint Pain, Joint Tenderness Skin: Denies: Rash, Wounds Neurological: Reports: Balance problems, Numbness, Tingling. Denies: Focal weakness Psychiatric: Denies: Anxiety, Depression, Homicidal Ideations, Suicidal Ideations Hematologic/ Lymphatic: Denies: Easy Bruising, Easy Bleeding Patient Problems: Active and Suspected Problems Hyperkalemia (Acute) - Physical Exam Vitals/I&O's: Vital Signs Temp Pulse Resp BP Pulse Ox 97.6 F L 83 16 162/91 H 98 04/19/19 17:27 04/19/19 17:27 04/19/19 17:27 04/19/19 17:27 04/19/19 17:27 Oxygen Delivery Method Room Air Weight: 190 lb 14.725 oz Body Mass Index (BMI) 27.8 Intake and Output for Last 24 Hours 04/17/19 04/18/19 04/19/19 23:59 23:59 23:59 Intake Total 60 / 60 Balance 60 / 60 General: Alert, Oriented x3, Cooperative HEENT: Atraumatic, PERRLA, EOMI, Normocephalic Neck: Supple, No JVD, Negative Carotid Bruits Lungs: Diminished - Air entry is diminished in bilateral lung bases., Rhonchi - Expiratory rhonchi is present bilaterally Cardiovascular: Regular rate, Regular Rhythm, Normal S1, Normal S2, No murmurs, - - Diminished peripheral pulses, PT and dorsalis pedis in legs. Abdomen: Bowel Sounds Present, Soft, Non Tender, Non-Distended Extremities: Capillary Refill Less than 3 Seconds, Edema Skin: Ulcer/ Wound - Chronic nonhealing ulcer at the lateral margin of right transmetatarsal amputation scar. Suspicion of osteomyelitis. Dry nonhealing ulcer Musculoskeletal: No Tenderness to Palpation of Joints or Extremities Neurological: Cranial nerves II-XII grossly intact Psych/Mental Status: Normal Affect, Appropriate Laboratory Results 04/19/19 12:46: POC Glucose 114 H 04/19/19 14:00: Sodium 141, Potassium 6.1 H*, Chloride 113 H, Carbon Dioxide 26.0, Anion Gap 2 L, BUN 37 H, Creatinine 1.30, Estim Creat Clear Calc 60.43, Est GFR (MDRD) Af Amer 72, Est GFR (MDRD) Non-Af 60, BUN/Creatinine Ratio 28.5 H, Glucose 94, Calcium 8.4 L, Magnesium 2.1 Current Medications Acetaminophen (Tylenol) 650 mg PO Q6H PRN PRN PRN Reason: Pain Score 1-3/Temp > 100.7 F Albuterol Sulfate () 10 mg INHALATION X1 ONE Stop: 04/19/19 17:15 Albuterol/Ipratropium (Duoneb) 3 ml INHALATION Q6HWA.RT ZEUS Calcium Chloride (Calcium Chloride) 1 gm IV X1 ONE Stop: 04/19/19 17:15 Dextrose (D50w Syringe) 0 gm IV X1 PRN; Protocol PRN Reason: Hypoglycemia Glucagon () 1 mg IM .X1 PRN PRN Reason: Hypoglycemia Guaifenesin (Robitussin) 20 ml PO Q4H PRN PRN PRN Reason: COUGH Lactated Ringer's () 1,000 mls @ 100 mls/hr IV .Q10H ZEUS Last Admin: 04/19/19 13:23 Dose: 100 mls/hr Documented by: Sodium Chloride () 250 mls @ 15 mls/hr IV .[id number] PRN PRN Reason: Saline Flush Sodium Chloride () 250 mls @ 15 mls/hr IV .[id number] PRN PRN Reason: Additional IVPB Infusion Influenza Virus Vaccine Quadrival (Flucelvax /Fluzone ) 0.5 ml IM .ONCE ONE Stop: 04/19/19 17:35 Insulin Human Lispro (Humalog Kwikpen (Bkc)) 0 unit SC ACHS [facility]; Protocol Morphine Sulfate () 2 mg IV Q3H PRN PRN PRN Reason: Pain Score 6-10/10 Nitroglycerin (Nitrostat) 0.4 mg SUBLINGUAL Q5M PRN PRN Reason: CARDIAC/CHEST PAIN Ondansetron HCl (Zofran) 4 mg IV Q8H PRN PRN PRN Reason: NAUSEA/VOMITING Oxycodone HCl (Oxyir) 5 mg PO Q4H PRN PRN PRN Reason: Pain Score 4-5/10 Senna/Docusate Sodium (Senokot-S, Lawanda-Colace) 2 tablet PO BID PRN PRN PRN Reason: Constipation Sodium Chloride () 10 - 40 ml IV UD PRN PRN Reason: SALINE FLUSH Assessment/Plan All Active Problems Hyperkalemia (Acute) The patient is a 58 year old M with history of diabetic foot, chronic nonhealing ulcer at lateral margin of right foot metatarsal scar site with suspicion of osteomyelitis while scheduled for elective outpatient surgery by Dr. Langley but was canceled secondary to hyperkalemia. On labs, K6.1, creatinine 1.3, BUN 37, CO2 26, anion gap 2. Magnesium 2.1. Glucose 94. 1. Acute hyperkalemia, exact etiology unclear but possible suspicion of herbal medication, nerve shield plus: The patient is being admitted in PCU. . EKG was done in preop shows normal sinus rhythm with peaked T waves in V1 to V3. T waves are slightly peaked in the previous EKG of 04/13/2019. Nerve shield plus has multiple ingredients including 2 [place] hebal medication Hung Marce and Cang Zu, detail is not described. Patient was educated not to use it. Patient already received hyperkalemia cocktail, calcium gluconate, calculate, Humalog insulin 10 units IV and 25 g of D50 and Kayexalate. Crime Scene Specialist has been consulted. Repeat labs shows K4.5, creatinine 1.25, BUN 34. 2. CKD stage III mostly secondary to diabetic neuropathy: Patient is on Lasix 40 mg daily which is on hold. As per previous lab on 04/13 2019: BUN 45, creatinine 1.43, K5.0. Kidney function is improved. 3. Diabetes mellitus type 2 with diabetic neuropathy, peripheral arterial disease status post stent and SFA, coronary artery disease, chronic combined systolic and diastolic heart failure: Patient glucoses 94 on BMP. Victoza is held. Dose of detemir decreased to 25 units nightly. Patient had echo from [place], [place] in July 2018 which reported EF 50% low normal systolic function, grade 1 diastolic dysfunction, LA mildly enlarged, trace TR. 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 Rod Beach in [place], [place]. 4. Nonhealing right transmetatarsal lateral margin ulcers with suspicion of osteomyelitis: Patient is being admitted under equal opportunity officer Dr. Villasenor. As per her recommendation DVT prophylaxis: Lovenox 40 mg subcu daily. Hold the morning dose before surgery. Laboratory Results 04/19/19 12:46: POC Glucose 114 H 04/19/19 14:00: Sodium 141, Potassium 6.1 H*, Chloride 113 H, Carbon Dioxide 26.0, Anion Gap 2 L, BUN 37 H, Creatinine 1.30, Estim Creat Clear Calc 60.43, Est GFR (MDRD) Af Amer 72, Est GFR (MDRD) Non-Af 60, BUN/Creatinine Ratio 28.5 H, Glucose 94, Calcium 8.4 L, Magnesium 2.1 04/19/19 17:38: Sodium Pending, Potassium Pending, Chloride Pending, Carbon Dioxide Pending, Anion Gap Pending, BUN Pending, Creatinine Pending, Est GFR (MDRD) Af Amer Pending, Est GFR (MDRD) Non-Af Pending, BUN/Creatinine Ratio Pending, Glucose Pending, Calcium Pending Code Visit Inpatient E&M: 99240 Init Hosp L3
[2019-04-19 18:11] LABS: Anion Gap 3 (5-15); BUN 34 mg/dL (7-18); BUN/Creat Ratio 27.2 RATIO (10-20); Calcium,Total 8.7 mg/dL (8.5-10.1); Chloride 113 mmol/L (98-107); Creatinine, Serum 1.25 mg/dL (0.70-1.30); EST Glomerular Filtration Rate 62 mL/min (>60); Est Glom Filt Rate - Afr Amer 76 mL/min (>60); Estimated Creatinine Clearance 62.84 ml/min; Glucose 70 mg/dL (74-106); Potassium 4.5 mmol/L (3.5-5.1); Sodium Level 142 mmol/L (136-145)
[2019-04-19 18:56] LABS: Absolute Lymphocyte Count 2.81 X10^3/uL (0.83-4.51); Absolute Neutrophil Count 5.4 X10^3/uL (2.0-7.7); Basophil# 0.08 X10^3/uL; Basophil% 0.8 % (0-1); Eosinophil# 0.44 X10^3/uL; Eosinophils% 4.6 % (0-5); Hematocrit 37.3 % (40-54); Hemoglobin 11.7 g/dL (13.0-16.5); Lymphocyte # 2.81 X10^3/ul (4.0); Lymphocyte % 29.2 % (19-41); Mean Corp Hgb Conc 31.4 g/dL (32-36); Mean Corpuscular Hgb 28.6 pg (27.0-32.0); Mean Corpuscular Volume 91.2 fL (80-94); Mean Platelet Vol. 10.5 fl (6.2-12.0); Monocyte# 0.85 X10^3/uL; Monocyte% 8.8 % (0-10); NRBC Flagged by Analyzer 0 % (0-5); Neutrophil # 5.44 X10^3/uL (2.7-7.7); Neutrophil % 56.5 % (47-70); Platelet Count 252 K/mm3 (150-450); RBC Distribution Width CV 15.1 % (11.6-14.6); RBC Distribution Width SD 50.9 fl (35.1-43.9); Red Blood Count 4.09 M/mm3 (4.6-6.2); White Blood Count 9.6 K/mm3 (4.4-11.0)
[2019-04-19] MEDS: Ipratropium/Albuterol Sulfate 3 ML AMPUL.NEB INHALATION (19:20)
[2019-04-19] MEDS: Enoxaparin 40 MG/0.4 ML Syringe SC (19:37)
[2019-04-19] MEDS: oxyCODONE 5 MG Tablet PO ×2 (19:44→23:49)
[2019-04-19] MEDS: Pantoprazole Sodium 20 MG Tablet PO (21:19)
[2019-04-19] MEDS: Insulin Lispro 100 UNIT/ML INSULN.PEN SC (21:27)
[2019-04-19] MEDS: Morphine 2 MG/ML Syringe IV (21:28)
[2019-04-19 21:31] LABS: Bedside Glucose 187 mg/dL (70-110)
[2019-04-20] VITALS (21 sets, daily range): BP systolic 134–165; BP diastolic 62–98; PULSE 68–94; RESP 16–20; TEMP 36.3–36.7; O2SAT 92–98; BMI 27.8
[2019-04-20] MEDS: Lactated Ringers 1,000 ML 100 ML IV ×2 (05:57→19:34)
[2019-04-20] MEDS: oxyCODONE 5 MG Tablet PO ×2 (06:01→21:44)
[2019-04-20 06:11] LABS: Absolute Lymphocyte Count 2.63 X10^3/uL (0.83-4.51); Absolute Neutrophil Count 3.9 X10^3/uL (2.0-7.7); Basophil# 0.06 X10^3/uL; Basophil% 0.8 % (0-1); Eosinophil# 0.22 X10^3/uL; Hematocrit 32.2 % (40-54); Hemoglobin 9.9 g/dL (13.0-16.5); Lymphocyte # 2.63 X10^3/ul (4.0); Lymphocyte % 35.4 % (19-41); Mean Corp Hgb Conc 30.7 g/dL (32-36); Mean Corpuscular Hgb 28.4 pg (27.0-32.0); Mean Corpuscular Volume 92.3 fL (80-94); Mean Platelet Vol. 10.4 fl (6.2-12.0); Monocyte# 0.65 X10^3/uL; Monocyte% 8.7 % (0-10); NRBC Flagged by Analyzer 0 % (0-5); Neutrophil # 3.86 X10^3/uL (2.7-7.7); POSITIVE MORPHOLOGY YES; Platelet Count 219 K/mm3 (150-450); RBC Distribution Width CV 15.2 % (11.6-14.6); RBC Distribution Width SD 51.9 fl (35.1-43.9); Red Blood Count 3.49 M/mm3 (4.6-6.2); White Blood Count 7.4 K/mm3 (4.4-11.0)
[2019-04-20 06:30] LABS: Differential Indicated SCAN CRITERIA MET
[2019-04-20 07:01] LABS: Bedside Glucose 141 mg/dL (70-110)
[2019-04-20 07:06] LABS: Anion Gap 4 (5-15); BUN 38 mg/dL (7-18); BUN/Creat Ratio 29.5 RATIO (10-20); Calcium,Total 7.8 mg/dL (8.5-10.1); Chloride 112 mmol/L (98-107); Cholesterol 161 mg/dL (200); Creatinine, Serum 1.29 mg/dL (0.70-1.30); EST Glomerular Filtration Rate 60 mL/min (>60); Est Glom Filt Rate - Afr Amer 73 mL/min (>60); Glucose 168 mg/dL (74-106); High Density Lipoprotein 41 mg/dL; Potassium 4.5 mmol/L (3.5-5.1); Sodium Level 141 mmol/L (136-145); Thyroid Stim Hormone (TSH) 2.26 uIU/mL (0.358-3.74); Triglycerides 156 mg/dL; Very Low Density Lipoprotein 31 mg/dL (5-40)
[2019-04-20] MEDS: Ipratropium/Albuterol Sulfate 3 ML AMPUL.NEB INHALATION ×3 (07:22→20:08)
[2019-04-20] MEDS: oxyCODONE 5 MG Tablet 10 MG PO (09:37)
[2019-04-20] MEDS: Pantoprazole Sodium 20 MG Tablet PO ×2 (09:37→21:39)
[2019-04-20 11:26] LABS: Bedside Glucose 233 mg/dL (70-110)
--- NOTE | 2019-04-20 11:42 | PCM.PROGNOTE ---
Patient Problems: Active and Suspected Problems Hyperkalemia (Acute) Subjective: This 58-year-old male multiple comorbidities was admitted yesterday secondary to hyperkalemia with EKG changes. This was identified during the preoperative setting. He previously had a planned nonelective transmetatarsal revision amputation scheduled for treatment of chronic osteomyelitis and delayed ulcer healing. He has stabilized and is ready to proceed with surgery. - Physical Exam Vitals/I&O's: Vital Signs Temp Pulse Resp BP Pulse Ox 97.5 F L 82 16 153/98 H 94 04/20/19 09:26 04/20/19 09:26 04/20/19 09:26 04/20/19 09:26 04/20/19 09:26 Oxygen Flow Rate (L/min) 2 Oxygen Delivery Method Room Air Weight: 86.6 kg Body Mass Index (BMI) 27.8 Intake and Output for Last 24 Hours 04/18/19 04/19/19 04/20/19 23:59 23:59 23:59 Intake Total 1298.33 / 1298.33 1048.33 / 1048.33 Balance 1298.33 / 1298.33 1048.33 / 1048.33 General: Alert, Oriented x3, Cooperative HEENT: Atraumatic Extremities: No cyanosis, Capillary Refill Less than 3 Seconds, No Calf Tenderness Skin: Ulcer/ Wound - stable. no purulence, erythema, or streaking. skin is atrophic Neurological: - - lack of normal epicritic sensation via light touch noted Psych/Mental Status: Normal Affect, Appropriate Laboratory Results 04/19/19 12:46: POC Glucose 114 H 04/19/19 14:00: Sodium 141, Potassium 6.1 H*, Chloride 113 H, Carbon Dioxide 26.0, Anion Gap 2 L, BUN 37 H, Creatinine 1.30, Estim Creat Clear Calc 60.43, Est GFR (MDRD) Af Amer 72, Est GFR (MDRD) Non-Af 60, BUN/Creatinine Ratio 28.5 H, Glucose 94, Calcium 8.4 L, Magnesium 2.1 04/19/19 17:38: Sodium 142, Potassium 4.5, Chloride 113 H, Carbon Dioxide 26.0, Anion Gap 3 L, BUN 34 H, Creatinine 1.25, Estim Creat Clear Calc 62.84, Est GFR (MDRD) Af Amer 76, Est GFR (MDRD) Non-Af 62, BUN/Creatinine Ratio 27.2 H, Glucose 70 L, Calcium 8.7 04/19/19 18:34: WBC 9.6, RBC 4.09 L, Hgb 11.7 L, Hct 37.3 L, MCV 91.2, MCH 28.6, MCHC 31.4 L, RDW Std Deviation 50.9 H, RDW Coeff of Judit 15.1 H, Plt Count 252, MPV 10.5, Immature Gran % (Auto) 0.100, Neut % (Auto) 56.5, Lymph % (Auto) 29.2, [place] % (Auto) 8.8, Eos % (Auto) 4.6, Baso % (Auto) 0.8, Absolute Neuts (auto) 5.4, Absolute Lymphs (auto) 2.81, Nucleated RBC % 0 04/19/19 21:17: POC Glucose 187 H 04/20/19 05:50: WBC 7.4, RBC 3.49 L, Hgb 9.9 L, Hct 32.2 L, MCV 92.3, MCH 28.4, MCHC 30.7 L, RDW Std Deviation 51.9 H, RDW Coeff of Judit 15.2 H, Plt Count 219, MPV 10.4, Immature Gran % (Auto) 0.100, Neut % (Auto) 52.0, Lymph % (Auto) 35.4, [place] % (Auto) 8.7, Eos % (Auto) 3.0, Baso % (Auto) 0.8, Absolute Neuts (auto) 3.9, Absolute Lymphs (auto) 2.63, Nucleated RBC % 0 04/20/19 05:50: Sodium 141, Potassium 4.5, Chloride 112 H, Carbon Dioxide 25.0, Anion Gap 4 L, BUN 38 H, Creatinine 1.29, Estim Creat Clear Calc 60.90, Est GFR (MDRD) Af Amer 73, Est GFR (MDRD) Non-Af 60, BUN/Creatinine Ratio 29.5 H, Glucose 168 H, Calcium 7.8 L, Triglycerides 156, Cholesterol 161, LDL Cholesterol 89, VLDL Cholesterol 31, HDL Cholesterol 41, TSH 2.26 04/20/19 06:44: POC Glucose 141 H 04/20/19 11:18: POC Glucose 233 H Current Medications Acetaminophen (Tylenol) 650 mg PO Q6H PRN PRN PRN Reason: Pain Score 1-3/Temp > 100.7 F Albuterol/Ipratropium (Duoneb) 3 ml INHALATION Q6HWA.RT [facility] Last Admin: 04/20/19 07:22 Dose: 3 ml Documented by: Aspirin (Aspirin, Baby) 81 mg PO DAILY@0800 [facility] Last Admin: 04/20/19 09:31 Dose: Not Given Documented by: Clopidogrel Bisulfate (Plavix) 75 mg PO DAILY [facility] Last Admin: 04/20/19 09:32 Dose: Not Given Documented by: Enoxaparin Sodium (Lovenox) 40 mg SC DAILY [facility] Last Admin: 04/19/19 19:37 Dose: 40 mg Documented by: Glucagon () 1 mg IM .X1 PRN PRN Reason: Hypoglycemia Guaifenesin (Robitussin) 20 ml PO Q4H PRN PRN PRN Reason: COUGH Lactated Ringer's () 1,000 mls @ 100 mls/hr IV .Q10H [facility] Last Admin: 04/20/19 05:57 Dose: 100 mls/hr Documented by: Sodium Chloride () 250 mls @ 15 mls/hr IV .[id number] PRN PRN Reason: Saline Flush Sodium Chloride () 250 mls @ 15 mls/hr IV .[id number] PRN PRN Reason: Additional IVPB Infusion Dextrose (Dextrose 10%-Water) 250 mls @ 999 mls/hr IV X1 PRN; Protocol PRN Reason: HYPOGLYCEMIA Insulin Glargine (Lantus (Bkc)) 25 units SC QHS [facility] Last Admin: 04/19/19 21:19 Dose: 25 u Documented by: Insulin Human Lispro (Humalog Kwikpen (Bk)) 0 unit SC ACHS [facility]; Protocol Last Admin: 04/20/19 06:45 Dose: Not Given Documented by: Morphine Sulfate () 2 mg IV Q3H PRN PRN PRN Reason: Pain Score 6-10/10 Last Admin: 04/19/19 21:28 Dose: 2 mg Documented by: Nitroglycerin (Nitrostat) 0.4 mg SUBLINGUAL Q5M PRN PRN Reason: CARDIAC/CHEST PAIN Ondansetron HCl (Zofran) 4 mg IV Q8H PRN PRN PRN Reason: NAUSEA/VOMITING Oxycodone HCl (Oxyir) 5 mg PO Q4H PRN PRN PRN Reason: Pain Score 4-5/10 Last Admin: 04/20/19 06:01 Dose: 5 mg Documented by: Oxycodone HCl (Oxyir) 10 mg PO DAILY [facility] Last Admin: 04/20/19 09:37 Dose: 10 mg Documented by: Pantoprazole Sodium (Protonix) 20 mg PO BID [facility] Last Admin: 04/20/19 09:37 Dose: 20 mg Documented by: Senna/Docusate Sodium (Senokot-S, Lawanda-Colace) 2 tablet PO BID PRN PRN PRN Reason: Constipation Sodium Chloride () 10 - 40 ml IV UD PRN PRN Reason: SALINE FLUSH Medical Necessity - Tobacco Use Smoking Status: Current every day smoker Assessment/Plan All Active Problems Hyperkalemia (Acute) Hyperkalemia with EKG changes improved Chronic right foot ulcers with previously diagnosed osteomyelitis Diabetes with neuropathy Chronic kidney disease COPD Coronary artery disease Peripheral vascular disease status post intervention including superficial femoral artery stenting Smoker Delayed healing I reviewed and discussed his case via phone this morning and also previously with Dr Stovall. His hyperkalemia is now resolved and he is medically optimized for surgical intervention. He had a planned curative (nonelective ) right foot transmetatarsal amputation plan to remove devitalized soft tissue and bone. His Plavix and Lovenox have been held this morning. He this will be tentatively added on for this afternoon. He is n.p.o. at this time. The preoperative indication, planned procedure, possible benefits, risk, complication, and anticipated healing time and management were reviewed and discussed again today. Informed surgical consent will be updated this morning. No guarantees were made. He is amendable to proceed with the initial plan. He understands risk and complications may include very limited to the following: Pain, swelling, scarring, delayed or nonhealing, infection, loss of limb, function, life, blood clot, allergic reaction, transfer lesion including new calluses or ulcers, need for revisional surgery. I answered all of his questions. Medical management DVT prophylaxis per primary team is greatly appreciated. Tasia Villasenor DPM, [facility] [phone]
[2019-04-20] MEDS: Insulin Lispro 100 UNIT/ML INSULN.PEN SC ×2 (12:10→21:37)
--- NOTE | 2019-04-20 13:17 | PCM.CONS.R ---
Problem List (1) Hyperkalemia Status: Acute Consultation - Renal 04/20/19 PCP/ Referring MD: Requesting physician: Hyperkalemia Primary care physician: JOSE FRANCISCO STORY Reason for Consultation:: Hyperkalemia - History of Present Illness History of Present Illness: The patient is a 58 year old M who presented to the hospital for an elective right foot surgery. Preoperative work-up showed hyperkalemia with a potassium of 6.1. Renal consulted for the same. Patient actually lives closer to [facility] and is here just for the surgery. Denies taking any potassium supplements. Did take few NSAIDs before. Recently started on a natural supplement. No urinary complaints. - Allergies Allergies: Allergies No Known Allergies Allergy (Verified 04/19/19 12:45) - Current Medications Current Medications: Current Medications Acetaminophen (Tylenol) 650 mg PO Q6H PRN PRN PRN Reason: Pain Score 1-3/Temp > 100.7 F Albuterol/Ipratropium (Duoneb) 3 ml INHALATION Q6HWA.RT [facility] Last Admin: 04/20/19 07:22 Dose: 3 ml Documented by: Aspirin (Aspirin, Baby) 81 mg PO DAILY@0800 [facility] Last Admin: 04/20/19 09:31 Dose: Not Given Documented by: Clopidogrel Bisulfate (Plavix) 75 mg PO DAILY [facility] Last Admin: 04/20/19 09:32 Dose: Not Given Documented by: Enoxaparin Sodium (Lovenox) 40 mg SC DAILY [facility] Last Admin: 04/19/19 19:37 Dose: 40 mg Documented by: Glucagon () 1 mg IM .X1 PRN PRN Reason: Hypoglycemia Guaifenesin (Robitussin) 20 ml PO Q4H PRN PRN PRN Reason: COUGH Lactated Ringer's () 1,000 mls @ 100 mls/hr IV .Q10H [facility] Last Admin: 04/20/19 05:57 Dose: 100 mls/hr Documented by: Sodium Chloride () 250 mls @ 15 mls/hr IV .[id number] PRN PRN Reason: Saline Flush Sodium Chloride () 250 mls @ 15 mls/hr IV .[id number] PRN PRN Reason: Additional IVPB Infusion Dextrose (Dextrose 10%-Water) 250 mls @ 999 mls/hr IV X1 PRN; Protocol PRN Reason: HYPOGLYCEMIA Insulin Glargine (Lantus (Bk)) 25 units SC QHS [facility] Last Admin: 04/19/19 21:19 Dose: 25 u Documented by: Insulin Human Lispro (Humalog Kwikpen (Bk)) 0 unit SC ACHS [facility]; Protocol Last Admin: 04/20/19 12:10 Dose: 3 u Documented by: Morphine Sulfate () 2 mg IV Q3H PRN PRN PRN Reason: Pain Score 6-10/10 Last Admin: 04/19/19 21:28 Dose: 2 mg Documented by: Nitroglycerin (Nitrostat) 0.4 mg SUBLINGUAL Q5M PRN PRN Reason: CARDIAC/CHEST PAIN Ondansetron HCl (Zofran) 4 mg IV Q8H PRN PRN PRN Reason: NAUSEA/VOMITING Oxycodone HCl (Oxyir) 5 mg PO Q4H PRN PRN PRN Reason: Pain Score 4-5/10 Last Admin: 04/20/19 06:01 Dose: 5 mg Documented by: Oxycodone HCl (Oxyir) 10 mg PO DAILY [facility] Last Admin: 04/20/19 09:37 Dose: 10 mg Documented by: Pantoprazole Sodium (Protonix) 20 mg PO BID [facility] Last Admin: 04/20/19 09:37 Dose: 20 mg Documented by: Senna/Docusate Sodium (Senokot-S, Lawanda-Colace) 2 tablet PO BID PRN PRN PRN Reason: Constipation Sodium Chloride () 10 - 40 ml IV UD PRN PRN Reason: SALINE FLUSH - Past Medical History Past Medical History (Chronic Problems): Chronic Problems Type 2 diabetes mellitus (Chronic) Right foot ulcer (Chronic) Stage 2 chronic kidney disease (Chronic) Smoker (Chronic) COPD (chronic obstructive pulmonary disease) (Chronic) PVD (peripheral vascular disease) (Chronic) Type 2 diabetes mellitus with diabetic polyneuropathy (Chronic) Amputation at midfoot (Chronic) Non-pressure chronic ulcer of other part of right foot with fat layer exposed (Chronic) Malnutrition (Chronic) Delayed wound healing (Chronic) Claustrophobia (Chronic) Chronic pain (Chronic) CKD stage 3 due to type 2 diabetes mellitus (Chronic) - Past Surgical History Surgical History: cholecystectomy, - - Right foot amputation - Social History Smoking Status: Current every day smoker Alcohol: None - Quit 2013 - Family History Maternal History Items: Heart Disease Paternal History Items: - - Alcoholism Review of Systems Constitutional: Denies: Chills, Fever, Weight Change HEENT: Denies: Head Aches, Sinus Congestion, Sinus Drainage Cardiovascular: Denies: Chest Pain, Palpitations Respiratory: Denies: Cough, Shortness of breath at rest, Sputum production Gastrointestinal: Denies: Abdominal Pain, Nausea, Vomiting Genitourinary: Denies: Dysuria Musculoskeletal: Denies: Joint Pain, Joint Tenderness Skin: Denies: Rash, Wounds Neurological: Denies: Numbness, Tingling, Focal weakness Psychiatric: Denies: Anxiety, Depression, Homicidal Ideations, Suicidal Ideations Hematologic/ Lymphatic: Denies: Easy Bruising, Easy Bleeding Patient Problems: Active and Suspected Problems Hyperkalemia (Acute) - Physical Exam Vitals/I&O's: Vital Signs Temp Pulse Resp BP Pulse Ox 97.5 F L 87 16 153/98 H 94 04/20/19 09:26 04/20/19 12:00 04/20/19 09:26 04/20/19 09:26 04/20/19 09:26 Oxygen Flow Rate (L/min) 2 Oxygen Delivery Method Room Air Weight: 86.6 kg Body Mass Index (BMI) 27.8 Intake and Output for Last 24 Hours 04/18/19 04/19/19 04/20/19 23:59 23:59 23:59 Intake Total 1298.33 / 1298.33 1168.33 / 1168.33 Balance 1298.33 / 1298.33 1168.33 / 1168.33 General: Alert, Oriented x3, Cooperative HEENT: Atraumatic, PERRLA, EOMI, Normocephalic Neck: Supple, No JVD, Negative Carotid Bruits Lungs: Clear to auscultation, Normal air movement Cardiovascular: Regular rate, No murmurs Abdomen: Bowel Sounds Present, Soft, Non Tender Extremities: No edema, Capillary Refill Less than 3 Seconds Skin: No rashes, No breakdown Musculoskeletal: No Tenderness to Palpation of Joints or Extremities Neurological: Cranial nerves II-XII grossly intact Psych/Mental Status: Normal Affect, Appropriate Laboratory Results 04/19/19 14:00: Sodium 141, Potassium 6.1 H*, Chloride 113 H, Carbon Dioxide 26.0, Anion Gap 2 L, BUN 37 H, Creatinine 1.30, Estim Creat Clear Calc 60.43, Est GFR (MDRD) Af Amer 72, Est GFR (MDRD) Non-Af 60, BUN/Creatinine Ratio 28.5 H, Glucose 94, Calcium 8.4 L, Magnesium 2.1 04/19/19 17:38: Sodium 142, Potassium 4.5, Chloride 113 H, Carbon Dioxide 26.0, Anion Gap 3 L, BUN 34 H, Creatinine 1.25, Estim Creat Clear Calc 62.84, Est GFR (MDRD) Af Amer 76, Est GFR (MDRD) Non-Af 62, BUN/Creatinine Ratio 27.2 H, Glucose 70 L, Calcium 8.7 04/19/19 18:34: WBC 9.6, RBC 4.09 L, Hgb 11.7 L, Hct 37.3 L, MCV 91.2, MCH 28.6, MCHC 31.4 L, RDW Std Deviation 50.9 H, RDW Coeff of Judit 15.1 H, Plt Count 252, MPV 10.5, Immature Gran % (Auto) 0.100, Neut % (Auto) 56.5, Lymph % (Auto) 29.2, [place] % (Auto) 8.8, Eos % (Auto) 4.6, Baso % (Auto) 0.8, Absolute Neuts (auto) 5.4, Absolute Lymphs (auto) 2.81, Nucleated RBC % 0 04/19/19 21:17: POC Glucose 187 H 04/20/19 05:50: WBC 7.4, RBC 3.49 L, Hgb 9.9 L, Hct 32.2 L, MCV 92.3, MCH 28.4, MCHC 30.7 L, RDW Std Deviation 51.9 H, RDW Coeff of Judit 15.2 H, Plt Count 219, MPV 10.4, Immature Gran % (Auto) 0.100, Neut % (Auto) 52.0, Lymph % (Auto) 35.4, [place] % (Auto) 8.7, Eos % (Auto) 3.0, Baso % (Auto) 0.8, Absolute Neuts (auto) 3.9, Absolute Lymphs (auto) 2.63, Nucleated RBC % 0 04/20/19 05:50: Sodium 141, Potassium 4.5, Chloride 112 H, Carbon Dioxide 25.0, Anion Gap 4 L, BUN 38 H, Creatinine 1.29, Estim Creat Clear Calc 60.90, Est GFR (MDRD) Af Amer 73, Est GFR (MDRD) Non-Af 60, BUN/Creatinine Ratio 29.5 H, Glucose 168 H, Calcium 7.8 L, Triglycerides 156, Cholesterol 161, LDL Cholesterol 89, VLDL Cholesterol 31, HDL Cholesterol 41, TSH 2.26 04/20/19 06:44: POC Glucose 141 H 04/20/19 11:18: POC Glucose 233 H Current Medications Acetaminophen (Tylenol) 650 mg PO Q6H PRN PRN PRN Reason: Pain Score 1-3/Temp > 100.7 F Albuterol/Ipratropium (Duoneb) 3 ml INHALATION Q6HWA.RT [facility] Last Admin: 04/20/19 07:22 Dose: 3 ml Documented by: Aspirin (Aspirin, Baby) 81 mg PO DAILY@0800 [facility] Last Admin: 04/20/19 09:31 Dose: Not Given Documented by: Clopidogrel Bisulfate (Plavix) 75 mg PO DAILY [facility] Last Admin: 04/20/19 09:32 Dose: Not Given Documented by: Enoxaparin Sodium (Lovenox) 40 mg SC DAILY [facility] Last Admin: 04/19/19 19:37 Dose: 40 mg Documented by: Glucagon () 1 mg IM .X1 PRN PRN Reason: Hypoglycemia Guaifenesin (Robitussin) 20 ml PO Q4H PRN PRN PRN Reason: COUGH Lactated Ringer's () 1,000 mls @ 100 mls/hr IV .Q10H [facility] Last Admin: 04/20/19 05:57 Dose: 100 mls/hr Documented by: Sodium Chloride () 250 mls @ 15 mls/hr IV .[id number] PRN PRN Reason: Saline Flush Sodium Chloride () 250 mls @ 15 mls/hr IV .[id number] PRN PRN Reason: Additional IVPB Infusion Dextrose (Dextrose 10%-Water) 250 mls @ 999 mls/hr IV X1 PRN; Protocol PRN Reason: HYPOGLYCEMIA Insulin Glargine (Lantus (Bkc)) 25 units SC QHS [facility] Last Admin: 04/19/19 21:19 Dose: 25 u Documented by: Insulin Human Lispro (Humalog Kwikpen (Bkc)) 0 unit SC ACHS [facility]; Protocol Last Admin: 04/20/19 12:10 Dose: 3 u Documented by: Morphine Sulfate () 2 mg IV Q3H PRN PRN PRN Reason: Pain Score 6-10/10 Last Admin: 04/19/19 21:28 Dose: 2 mg Documented by: Nitroglycerin (Nitrostat) 0.4 mg SUBLINGUAL Q5M PRN PRN Reason: CARDIAC/CHEST PAIN Ondansetron HCl (Zofran) 4 mg IV Q8H PRN PRN PRN Reason: NAUSEA/VOMITING Oxycodone HCl (Oxyir) 5 mg PO Q4H PRN PRN PRN Reason: Pain Score 4-5/10 Last Admin: 04/20/19 06:01 Dose: 5 mg Documented by: Oxycodone HCl (Oxyir) 10 mg PO DAILY [facility] Last Admin: 04/20/19 09:37 Dose: 10 mg Documented by: Pantoprazole Sodium (Protonix) 20 mg PO BID [facility] Last Admin: 04/20/19 09:37 Dose: 20 mg Documented by: Senna/Docusate Sodium (Senokot-S, Lawanda-Colace) 2 tablet PO BID PRN PRN PRN Reason: Constipation Sodium Chloride () 10 - 40 ml IV UD PRN PRN Reason: SALINE FLUSH Assessment/Plan All Active Problems Hyperkalemia (Acute) Hyperkalemia. Urine medication list. No known drugs that are known to cause hyperkalemia. Serum glucose values are acceptable. No signs to suggest rhabdomyolysis. Apparently he did have an episode of hyperkalemia about a year ago. He recently started a herbal supplement. Did review contents of it and there is no potassium mentioned. Has been treated medically for potassium. Potassium levels are better now. No further work-up needed for now.
--- NOTE | 2019-04-20 13:45 | PN_ITS ---
<Landon Horta - Last Filed: 04/20/19 13:45> Patient Problems: Active and Suspected Problems Hyperkalemia (Acute) Reason for Visit: hyperkalemia Subjective: Pt received kayexalate and later had watery stool. Also received calcium carbonate. K+ normalized. No nausea/vomiting/diarrhea today. No SOB, cough. No fever / chills. Vitals/I&O's: Vital Signs Temp Pulse Resp BP Pulse Ox 97.5 F L 87 16 153/98 H 94 04/20/19 09:26 04/20/19 12:00 04/20/19 09:26 04/20/19 09:26 04/20/19 09:26 Oxygen Flow Rate (L/min) 2 Oxygen Delivery Method Room Air Weight: 190 lb 14.725 oz Body Mass Index (BMI) 27.8 Intake and Output for Last 24 Hours 04/18/19 04/19/19 04/20/19 23:59 23:59 23:59 Intake Total 1298.33 / 1298.33 1168.33 / 1168.33 Balance 1298.33 / 1298.33 1168.33 / 1168.33 General: Alert, Oriented x3, Cooperative HEENT: Atraumatic, PERRLA, EOMI, Normocephalic Neck: Supple, No JVD, Negative Carotid Bruits Lungs: Clear to auscultation, Normal air movement Cardiovascular: Regular rate, No murmurs Abdomen: Bowel Sounds Present, Soft, Non Tender Extremities: No edema, Capillary Refill Less than 3 Seconds Skin: No rashes, No breakdown Musculoskeletal: No Tenderness to Palpation of Joints or Extremities Neurological: Cranial nerves II-XII grossly intact Psych/Mental Status: Normal Affect, Appropriate, Alert and oriented to time, place, person, mood and affect Laboratory Results 04/19/19 14:00: Sodium 141, Potassium 6.1 H*, Chloride 113 H, Carbon Dioxide 26.0, Anion Gap 2 L, BUN 37 H, Creatinine 1.30, Estim Creat Clear Calc 60.43, Est GFR (MDRD) Af Amer 72, Est GFR (MDRD) Non-Af 60, BUN/Creatinine Ratio 28.5 H , Glucose 94, Calcium 8.4 L, Magnesium 2.1 04/19/19 17:38: Sodium 142, Potassium 4.5, Chloride 113 H, Carbon Dioxide 26.0, Anion Gap 3 L, BUN 34 H, Creatinine 1.25, Estim Creat Clear Calc 62.84, Est GFR (MDRD) Af Amer 76, Est GFR (MDRD) Non-Af 62, BUN/Creatinine Ratio 27.2 H, Glucose 70 L, Calcium 8.7 04/19/19 18:34: WBC 9.6, RBC 4.09 L, Hgb 11.7 L, Hct 37.3 L, MCV 91.2, MCH 28.6, MCHC 31.4 L, RDW Std Deviation 50.9 H, RDW Coeff of Judit 15.1 H, Plt Count 252, MPV 10.5, Immature Gran % (Auto) 0.100, Neut % (Auto) 56.5, Lymph % (Auto) 29.2, Bennett % (Auto) 8.8, Eos % (Auto) 4.6, Baso % (Auto) 0.8, Absolute Neuts (auto) 5.4, Absolute Lymphs (auto) 2.81, Nucleated RBC % 0 04/19/19 21:17: POC Glucose 187 H 04/20/19 05:50: WBC 7.4, RBC 3.49 L, Hgb 9.9 L, Hct 32.2 L, MCV 92.3, MCH 28.4, MCHC 30.7 L, RDW Std Deviation 51.9 H, RDW Coeff of Judit 15.2 H, Plt Count 219, MPV 10.4, Immature Gran % (Auto) 0.100, Neut % (Auto) 52.0, Lymph % (Auto) 35.4, Bennett % (Auto) 8.7, Eos % (Auto) 3.0, Baso % (Auto) 0.8, Absolute Neuts (auto) 3.9, Absolute Lymphs (auto) 2.63, Nucleated RBC % 0 04/20/19 05:50: Sodium 141, Potassium 4.5, Chloride 112 H, Carbon Dioxide 25.0, Anion Gap 4 L, BUN 38 H, Creatinine 1.29, Estim Creat Clear Calc 60.90, Est GFR (MDRD) Af Amer 73, Est GFR (MDRD) Non-Af 60, BUN/Creatinine Ratio 29.5 H, Glucose 168 H, Calcium 7.8 L, Triglycerides 156, Cholesterol 161, LDL Cholesterol 89, VLDL Cholesterol 31, HDL Cholesterol 41, TSH 2.26 04/20/19 06:44: POC Glucose 141 H 04/20/19 11:18: POC Glucose 233 H Current Medications Acetaminophen (Tylenol) 650 mg PO Q6H PRN PRN PRN Reason: Pain Score 1-3/Temp > 100.7 F Albuterol/Ipratropium (Duoneb) 3 ml INHALATION Q6HWA.RT [facility] Last Admin: 04/20/19 13:28 Dose: 3 ml Documented by: Aspirin (Aspirin, Baby) 81 mg PO DAILY@0800 [facility] Last Admin: 04/20/19 09:31 Dose: Not Given Documented by: Clopidogrel Bisulfate (Plavix) 75 mg PO DAILY [facility] Last Admin: 04/20/19 09:32 Dose: Not Given Documented by: Enoxaparin Sodium (Lovenox) 40 mg SC DAILY [facility] Last Admin: 04/19/19 19:37 Dose: 40 mg Documented by: Glucagon () 1 mg IM .X1 PRN PRN Reason: Hypoglycemia Guaifenesin (Robitussin) 20 ml PO Q4H PRN PRN PRN Reason: COUGH Lactated Ringer's () 1,000 mls @ 100 mls/hr IV .Q10H [facility] Last Admin: 04/20/19 05:57 Dose: 100 mls/hr Documented by: Sodium Chloride () 250 mls @ 15 mls/hr IV .[id number] PRN PRN Reason: Saline Flush Sodium Chloride () 250 mls @ 15 mls/hr IV .[id number] PRN PRN Reason: Additional IVPB Infusion Dextrose (Dextrose 10%-Water) 250 mls @ 999 mls/hr IV X1 PRN; Protocol PRN Reason: HYPOGLYCEMIA Insulin Glargine (Lantus (Bk)) 25 units SC QHS [facility] Last Admin: 04/19/19 21:19 Dose: 25 u Documented by: Insulin Human Lispro (Humalog Kwikpen (Bk)) 0 unit SC ACHS [facility]; Protocol Last Admin: 04/20/19 12:10 Dose: 3 u Documented by: Morphine Sulfate () 2 mg IV Q3H PRN PRN PRN Reason: Pain Score 6-10/10 Last Admin: 04/19/19 21:28 Dose: 2 mg Documented by: Nitroglycerin (Nitrostat) 0.4 mg SUBLINGUAL Q5M PRN PRN Reason: CARDIAC/CHEST PAIN Ondansetron HCl (Zofran) 4 mg IV Q8H PRN PRN PRN Reason: NAUSEA/VOMITING Oxycodone HCl (Oxyir) 5 mg PO Q4H PRN PRN PRN Reason: Pain Score 4-5/10 Last Admin: 04/20/19 06:01 Dose: 5 mg Documented by: Oxycodone HCl (Oxyir) 10 mg PO DAILY [facility] Last Admin: 04/20/19 09:37 Dose: 10 mg Documented by: Pantoprazole Sodium (Protonix) 20 mg PO BID [facility] Last Admin: 04/20/19 09:37 Dose: 20 mg Documented by: Senna/Docusate Sodium (Senokot-S, Lawanda-Colace) 2 tablet PO BID PRN PRN PRN Reason: Constipation Sodium Chloride () 10 - 40 ml IV UD PRN PRN Reason: SALINE FLUSH STROKE Vital Signs/Narrative: Vital Signs Pulse 04/20/19 12:00 87 Medical Necessity - Tobacco Use Smoking Status: Current every day smoker Assessment/Plan All Active Problems Hyperkalemia (Acute) 1. Hyperkalemia - nephrology following. Normalized following calcium and kayex. Unclear etiology. ? hemolysis - check ldh 2. CKDIII - nephro following, Renal fxn stable 3. COPD - no exacerbation. prn aerosols. 4. DMt2 - continue Long acting insulin + SSI, further adjustments post op when back on diet. victoza held. 5. Nonhealing right foot ulcers - possible osteo - DrGio Villasenor taking to OR today. 6. Chronic normocytic anemia - stable 7. GERD - PPI 8. PAD - see ABIs in chart ((03/2019), pletal held for surgery. DVT ppx: lovenox, held for surgery. Thank you for the opportunity to participate in the care of this patient. This patient was seen by Landon Horta PA-C under the supervision of Doctor Garcia. <Agnieszka Garcia - Last Filed: 04/20/19 15:02> Vitals/I&O's: Vital Signs Temp Pulse Resp BP Pulse Ox 97.5 F L 89 20 H 153/98 H 94 04/20/19 09:26 04/20/19 13:28 04/20/19 13:28 04/20/19 09:26 04/20/19 09:26 Oxygen Flow Rate (L/min) 2 Oxygen Delivery Method Room Air Weight: 190 lb 14.725 oz Body Mass Index (BMI) 27.8 Intake and Output for Last 24 Hours 04/18/19 04/19/19 04/20/19 23:59 23:59 23:59 Intake Total 1298.33 / 1298.33 1168.33 / 1168.33 Balance 1298.33 / 1298.33 1168.33 / 1168.33 Laboratory Results 04/19/19 17:38: Sodium 142, Potassium 4.5, Chloride 113 H, Carbon Dioxide 26.0, Anion Gap 3 L, BUN 34 H, Creatinine 1.25, Estim Creat Clear Calc 62.84, Est GFR (MDRD) Af Amer 76, Est GFR (MDRD) Non-Af 62, BUN/Creatinine Ratio 27.2 H, Glucose 70 L, Calcium 8.7 04/19/19 18:34: WBC 9.6, RBC 4.09 L, Hgb 11.7 L, Hct 37.3 L, MCV 91.2, MCH 28.6, MCHC 31.4 L, RDW Std Deviation 50.9 H, RDW Coeff of Judit 15.1 H, Plt Count 252, MPV 10.5, Immature Gran % (Auto) 0.100, Neut % (Auto) 56.5, Lymph % (Auto) 29.2, Bennett % (Auto) 8.8, Eos % (Auto) 4.6, Baso % (Auto) 0.8, Absolute Neuts (auto) 5. 4, Absolute Lymphs (auto) 2.81, Nucleated RBC % 0 04/19/19 21:17: POC Glucose 187 H 04/20/19 05:50: WBC 7.4, RBC 3.49 L, Hgb 9.9 L, Hct 32.2 L, MCV 92.3, MCH 28.4, MCHC 30.7 L, RDW Std Deviation 51.9 H, RDW Coeff of Judit 15.2 H, Plt Count 219, MPV 10.4, Immature Gran % (Auto) 0.100, Neut % (Auto) 52.0, Lymph % (Auto) 35.4, Bennett % (Auto) 8.7, Eos % (Auto) 3.0, Baso % (Auto) 0.8, Absolute Neuts (auto) 3.9, Absolute Lymphs (auto) 2.63, Nucleated RBC % 0 04/20/19 05:50: Sodium 141, Potassium 4.5, Chloride 112 H, Carbon Dioxide 25.0, Anion Gap 4 L, BUN 38 H, Creatinine 1.29, Estim Creat Clear Calc 60.90, Est GFR (MDRD) Af Amer 73, Est GFR (MDRD) Non-Af 60, BUN/Creatinine Ratio 29.5 H, Glucose 168 H, Calcium 7.8 L, Triglycerides 156, Cholesterol 161, LDL Cholesterol 89, VLDL Cholesterol 31, HDL Cholesterol 41, TSH 2.26 04/20/19 05:50: Lactate Dehydrogenase Pending 04/20/19 06:44: POC Glucose 141 H 04/20/19 11:18: POC Glucose 233 H Current Medications Acetaminophen (Tylenol) 650 mg PO Q6H PRN PRN PRN Reason: Pain Score 1-3/Temp > 100.7 F Albuterol/Ipratropium (Duoneb) 3 ml INHALATION Q6HWA.RT [facility] Last Admin: 04/20/19 13:28 Dose: 3 ml Documented by: Aspirin (Aspirin, Baby) 81 mg PO DAILY@0800 [facility] Last Admin: 04/20/19 09:31 Dose: Not Given Documented by: Clopidogrel Bisulfate (Plavix) 75 mg PO DAILY [facility] Last Admin: 04/20/19 09:32 Dose: Not Given Documented by: Enoxaparin Sodium (Lovenox) 40 mg SC DAILY [facility] Last Admin: 04/19/19 19:37 Dose: 40 mg Documented by: Glucagon () 1 mg IM .X1 PRN PRN Reason: Hypoglycemia Guaifenesin (Robitussin) 20 ml PO Q4H PRN PRN PRN Reason: COUGH Lactated Ringer's () 1,000 mls @ 100 mls/hr IV .Q10H [facility] Last Admin: 04/20/19 05:57 Dose: 100 mls/hr Documented by: Sodium Chloride () 250 mls @ 15 mls/hr IV .[id number] PRN PRN Reason: Saline Flush Sodium Chloride () 250 mls @ 15 mls/hr IV .[id number] PRN PRN Reason: Additional IVPB Infusion Dextrose (Dextrose 10%-Water) 250 mls @ 999 mls/hr IV X1 PRN; Protocol PRN Reason: HYPOGLYCEMIA Insulin Glargine (Lantus ([facility])) 25 units SC QHS [facility] Last Admin: 04/19/19 21:19 Dose: 25 u Documented by: Insulin Human Lispro (Humalog Kwikpen ([facility])) 0 unit SC ACHS [facility]; Protocol Last Admin: 04/20/19 12:10 Dose: 3 u Documented by: Morphine Sulfate () 2 mg IV Q3H PRN PRN PRN Reason: Pain Score 6-10/10 Last Admin: 04/19/19 21:28 Dose: 2 mg Documented by: Nitroglycerin (Nitrostat) 0.4 mg SUBLINGUAL Q5M PRN PRN Reason: CARDIAC/CHEST PAIN Ondansetron HCl (Zofran) 4 mg IV Q8H PRN PRN PRN Reason: NAUSEA/VOMITING Oxycodone HCl (Oxyir) 5 mg PO Q4H PRN PRN PRN Reason: Pain Score 4-5/10 Last Admin: 04/20/19 06:01 Dose: 5 mg Documented by: Oxycodone HCl (Oxyir) 10 mg PO DAILY [facility] Last Admin: 04/20/19 09:37 Dose: 10 mg Documented by: Pantoprazole Sodium (Protonix) 20 mg PO BID [facility] Last Admin: 04/20/19 09:37 Dose: 20 mg Documented by: Senna/Docusate Sodium (Senokot-S, Lawanda-Colace) 2 tablet PO BID PRN PRN PRN Reason: Constipation Sodium Chloride () 10 - 40 ml IV UD PRN PRN Reason: SALINE FLUSH STROKE Vital Signs/Narrative: Vital Signs Pulse Resp 04/20/19 13:28 89 20 H 04/20/19 12:00 87 Assessment/Plan Patient seen by Landon Horta PA-C under my supervision Patient was admitted for elective outpatient foot surgery by Dr. Ruiz on. However surgery was canceled on account of hyperkalemia with potassium being 6.1. He was therefore admitted to be managed for hyperkalemia. He see the hyperkalemia cocktail and also received Kayexalate and potassium is now down. Seen and examined. He has no complaints and feels well. He was anxious to know when he would have surgery. Review of systems otherwise negative. Labs and vitals reviewed. o/e: Vital Signs Height 5 ft 9.5 in Weight: 190 lb 14.725 oz Weight in Pounds 190.9 lbs Pulse Ox 94 Temperature 97.5 F Pulse Rate 89 Respiratory Rate 20 Blood Pressure 153/98 Blood Pressure Position Semi-Fowlers General: Alert, Oriented x3, Cooperative HEENT: Atraumatic, PERRLA, EOMI, Normocephalic Neck: Supple, No JVD, Negative Carotid Bruits Lungs: Clear to auscultation, Normal air movement Cardiovascular: Regular rate, No murmurs Abdomen: Bowel Sounds Present, Soft, Non Tender Extremities: No edema, Capillary Refill Less than 3 Seconds Skin: No rashes, No breakdown Musculoskeletal: right foot wrapped in bandage. Neurological: Cranial nerves II-XII grossly intact Psych/Mental Status: Normal Affect, Appropriate, Alert and oriented to time, place, person, mood and affect Hyperkalemia has resolved with potassium now being 4.5. We will continue monitoring. Creatinine is 1.29. For surgery by podiatry; time to be determined by podiatry. Rest of management as per Landon Horta PA-C's notes which I have reviewed and endorsed. Code Visit Inpatient E&M: 52339 Subs Hosp L2
[2019-04-20 14:55] LABS: LDH 183 U/L (87-241)
--- NOTE | 2019-04-20 15:14 | CASEMGMT ---
RN CM NOTE: RN CM to room to complete admission assessment. Pt not in room at this time--is @ surgery. CM to attempt later. Lauren BSN RN CM
[2019-04-20 15:46] LABS: Bedside Glucose 118 mg/dL (70-110)
--- NOTE | 2019-04-20 16:00 | BON_PTH ---
PATIENT: MANUELITO BROWN LOC: [facility] U#:[id number] AGE/SX: 58/M ROOM: [facility] RE04/20/[address]: Dr. Agnieszka Garcia MD : 1960 BED: 1 DIS: 04/21/2019 SPEC #: [id number] RECD: 04/21/19 12:00 STATUS: KAYLAN JESSICA #: [id number] DAGO: 04/20/19 16:[address]: Tasia Villasenor DEPT: SURGICAL PATHOLOGY RECD BY: Deep Gresham ENTERED: 04/21/19 12:49 SP TYPE: Bone OTHR DR: MD Dr. Agnieszka Bliss MD Dr. Prakash Chand, MD Tissues: A - Bone of foot, NOS B - Bone of foot, NOS Procedures: Decalcification bone/plaque Surgery Specimen Level IV HEADER OPERATION: Amputation transmetatarsal PRE-OP DIAGNOSIS: Osteomyelitis TISSUE SUBMITTED: A - Right foot bone and tissue, B - Right foot bone clearance fragment MICROSCOPIC DIAGNOSIS A. Bone and tissue of right foot, biopsy: Bone with acute osteomyelitis. Soft tissue with fibrosis and acute and chronic inflammation. B. Bone of right foot, clearance fragment, biopsy: Focal reparative and reactive change. No evidence of osteomyelitis. AM:andrea 04/28/19 MICROSCOPIC DESCRIPTION Slides are reviewed. GROSS DESCRIPTION A - Received in fixative is one container labeled with the patient's name and designated right foot bone and tissue. The specimen consists of multiple fragments of soft tissue and bone that in aggregate measure 5 x 4 x 1 cm. Trade Mark Examiner sections are submitted in two cassettes as follows: 1 - soft tissue, 2-4 - bone after decalcification. B - Received in fixative is one container labeled with the patient's name and designated right foot bone clearance fragment. The specimen consists of two pieces of bone measuring in aggregate 2 x 1.2 x 0.4 cm. The entire specimen is submitted in two cassettes after decalcification. / SJ:andrea 04/21/19 TC:2 CPT: 58014 x2, 50398 x2
[2019-04-20] MEDS: Bupivacaine Mpf 0.5% 30 ML VIAL (16:30)
--- NOTE | 2019-04-20 16:35 | RAD_ITS ---
STUDY: X-RAY - RIGHT FOOT CLINICAL: Male, 58 years old. Partial foot amputation TECHNIQUE: 2 fluoroscopic view(s) of the foot. Dose area product: 2.1 cGycm2 COMPARISON: None. FINDINGS: Fluoroscopic guidance for transmetatarsal amputation. RAD/Foot 2 Views IMPRESSION: Fluoroscopic guidance for transmetatarsal amputation. Electronically Signed: Juancarlos Hamm MD ([place]) at 18:57 EST , Service support ,
--- NOTE | 2019-04-20 18:01 | PCM.OPRPT ---
Problem List (1) Non-pressure chronic ulcer of other part of right foot with fat layer exposed Status: Chronic (2) Osteomyelitis of right foot Status: Suspected Qualifiers: Osteomyelitis type: subacute Qualified Code(s): M86.271 - Subacute osteomyelitis, right ankle and foot (3) Amputation at midfoot Status: Chronic Qualifiers: (4) Type 2 diabetes mellitus with diabetic polyneuropathy Status: Chronic (5) Delayed wound healing Status: Chronic Report of Operation Date of Procedure: 04/20/19 Pre-Operative Diagnosis: right chronic osteomyelitis and foot deformity (prior amputation). right chronic foot ulcer with delayed healing Post-Operative Diagnosis: right chronic osteomyelitis and foot deformity (prior amputation). right chronic foot ulcer with delayed healing Surgery/Procedure Performed:: right revisional transmetatarsal amputation Description of Surgical Findings:: hemostasis: well padded pneumatic ankle tourniquet, 34 min, 250 mmHg materials: 2-0 vicryl, 2-0 nylon complications: none Specimens sent The patient tolerated the procedure and anesthesia well. He was transported to the PACU with vital signs stable and vascular status intact to the right lower extremity. He will be transferred back to the progressive care unit upon continued stability. X-rays were reviewed prior to leaving the operating room demonstrating adequate amputation resection without acute injuries. There was a well-maintained right foot stump parabola. Postoperative orders were entered electronically. automotive service director: none - Surgeon: Tasia Villasenor DPM. Grease Cup Filler: Drew Moraes PGY1 Type of Anesthesia:: General, Local - Preoperative: One-to-one mixture of 1% lidocaine plain and 0.5% Marcaine plain administered in typical right ankle block fashion, 18 cc Specimen's removed: 1. Right foot soft tissue and bone sent to pathology. 2. Right foot soft tissue and bone sent to microbiology for aerobic, anaerobic, acid-fast, fungal. 3. Right foot clearance fragment bone sent to pathology. 4. Right foot clearance fragment bone sent to microbiology for aerobic, anaerobic, acid-fast, fungal Estimated Blood Loss (mL): <200 mL Description of Procedure: Indications: This 58-year-old male with significant past medical history of diabetes with neuropathy, stage II chronic kidney disease, COPD, smoking habit has continued delayed healing on the right foot. He had a prior amputation of the forefoot with residual tissue calcification and nonhealing ulcer. He was diagnosed previously with osteomyelitis and was treated with IV antibiotics. He was previously seen out of state and it is noted he is signed out AGAINST MEDICAL ADVICE at other hospitals. He initially presented to the wound healing center for consideration of hyperbaric oxygen therapy. However, he was unable to proceed forward due to his new claustrophobia condition. He is under a comprehensive wound healing plan at this time including offloading with a cam walker boot, serial debridements, nutritional supplementation. He does not have active purulence or cellulitis. He was recently seen by vascular specialist 1 week ago in which no additional intervention was recommended. I discussed the case with his vascular surgeon via phone, and it is noted he had a prior stenting procedure performed to the right superficial femoral artery which appears to be intact at this time. Perfusion to the right foot was confirmed. His preoperative x-rays demonstrate prior resection of several metatarsals with some remaining metatarsal heads of the third and additional soft tissue calcification. There is no foreign body or other acute injuries noted. His surgery was initially scheduled earlier this week but was delayed due to new onset hyperkalemia. This has since resolved and he has been medically stabilized during his hospital admission. The indications, planned procedure, possible benefits, risk, complications, and anticipated healing time and management were discussed in detail with the patient in the preoperative setting. No guarantees were made. He understands risks and complications may include but are not limited to the following: pain, swelling, scarring, recurrent ulcers, transfer lesions, need for further surgery, continued infection, continued delayed or nonhealing, further amputation, blood clot, allergic reaction, loss of limb, function, life. The informed surgical consent and limb were signed. Answered all his questions. Procedure in detail: The patient was transferred to the operating room via cart and placed on the operating table in the supine position. Final verification of the patient, surgery, limb designation was performed via the timeout procedure. Anesthesia was initiated by the anesthesia team. IV antibiotics were held due to lack of purulence at this time and to obtain a more informative culture. The podiatry team administered the right lower extremity local anesthetic block as noted. A well-padded pneumatic right ankle tourniquet was placed. The right lower extremity was prepped and draped in the usual aseptic manner. The right lower extremity was exsanguinated with gravity and the tourniquet was inflated at this time. Surgery began in the following manner: A full-thickness fishmouth incision was performed to the distal forefoot stump site and this included the excision of the prior chronic ulcer sites and sinus tracts. Care was taken to identify, protect, and retract any neurovascular structures that were trying to be preserved at this point and throughout the remainder of the surgery. The soft tissue was sharply reflected off of the remaining metatarsals including the third metatarsal head that was present and other retained calcified tissue and bone fragments. Next a 15 blade and soria elevator were used to reflect the soft tissue from the metatarsals at the level of anticipated resection. A sagittal saw was next used to resect the metatarsals taking care to bevel these bones and maintain a good parabola to minimize pressure points during the healing process. These resected bones were removed from the table at a level proximal to the visually devitalized tissue. Care was next taken to excise any devitalized and avascular structures including remaining tendons, plantar plates, and devitalized subcutaneous tissue. There was not any purulence or deep necrosis noted. The wound bed was copiously irrigated with normal saline. This was sent to pathology and microbiology as noted. At this time, new gloves, drapes, instruments were utilized. A sagittal saw and clean rongeur was used to resect clearance fragments of all of the metatarsals. This was sent to microbiology and pathology as noted. The postoperative x-ray was reviewed with intraoperative fluoroscopy without acute injuries noted. Adequate resection was confirmed. Next additional flap remodeling was performed and deep closure was performed with 2-0 Vicryl suture. The tourniquet was deflated at this time and brisk capillary refill time was noted to the dorsal and plantar flaps. Electrocauterization and direct pressure was utilized to control hemostasis. The remaining open wound measured approximately 11 cm in width and layered closure was performed. The flap was reapproximated utilizing no touch technique utilizing retention simple sutures, vertical mattress, horizontal mattress. This was performed in a non-tensile manner, layered closure. A postoperative dressing was applied including Adaptic, Betadine gauze, abdominal pads, Kerlix. A well-padded posterior mold with the right lower extremity in a neutral position was next applied. After procedure: The patient tolerated the procedure and anesthesia well. He was transferred back to the PACU with vital signs stable and vascular status intact to right lower extremity. I recommend he maintains a strict non weightbearing status. He will keep his dressing clean, dry, and intact. His postoperative x-rays were reviewed as noted. He was advised to maintain a strict nonweightbearing status to right lower extremity. He will ice and elevate for pain and inflammation management. Specimens were sent to microbiology and pathology including clearance fragments; these results are pending. Antibiotics and infectious disease consultation will be considered pending these results. It is encouraging there was no purulence or deep necrosis noted after the resection was performed. Medical management and DVT prophylaxis per primary team is greatly appreciated. His postoperative orders were entered electronically. Tasia Villaesnor DPM, [facility] Grafts/Implants Used: none - Complications none - Admit VTE Documentation VTE Present on Admission: No VTE Mechan Device Prophylaxis: SCD's VTE Pharm Prophylaxis ordered?: Yes
--- NOTE | 2019-04-20 18:40 | RAD_ITS ---
STUDY: X-RAY - RIGHT FOOT CLINICAL: Male, 58 years old. Transmetatarsal amputation TECHNIQUE: 3 view(s) of the foot. COMPARISON: None. FINDINGS: Normal talus, calcaneus, and tarsal bones. Normal visualized subtalar, talonavicular, calcaneocuboid, tarsal and tarsometatarsal articulations. Transmetatarsal amputation identified with overlying soft tissue swelling compatible with recent surgery. Bandage material noted. RAD/Foot min 3 Views IMPRESSION: Transmetatarsal amputation. Electronically Signed: Juancarlos Hamm MD ([place]) at 18:59 EST , Service support ,
[2019-04-20] MEDS: Morphine 2 MG/ML Syringe IV ×2 (19:48→23:11)
--- NOTE | 2019-04-20 21:35 | NURSING ---
Pt used the walker and up to chair. Pt instructed not to put any weight on foot. Pt verbalized understanding. legs up in recliner
[2019-04-20 21:45] LABS: Bedside Glucose 201 mg/dL (70-110)
[2019-04-21] MEDS: oxyCODONE 5 MG Tablet PO (01:49)
[2019-04-21] MEDS: Acetaminophen 325 MG Tablet 650 MG PO (01:49)
[2019-04-21 03:14] VITALS: BP 147/78; PULSE 87; RESP 18; TEMP 37.1; O2SAT 95
[2019-04-21 03:27] VITALS: PULSE 89
[2019-04-21] MEDS: Lactated Ringers 1,000 ML 100 ML IV (05:05)
[2019-04-21 06:31] LABS: Bedside Glucose 110 mg/dL (70-110)
--- NOTE | 2019-04-21 06:32 | NURSING ---
WHILE LIFTING PT FOOT UP, NOTICE RED DRAINAGE ON PILLOW CASE OF MODERATE AMOUNT. IT IS ON THE 5TH TOE SIDE. DRESSING RE-INFORCED AND NOTIFIED
--- NOTE | 2019-04-21 07:07 | PCM.PROGNOTE ---
Subjective: This 58-year-old male was seen bedside postoperative day #1 right foot transmetatarsal amputation. He denies fever, chill, nausea, vomiting, chest pain, shortness of breath, or calf pain. He relates his pain is moderate. He did have some strikethrough noted on the dressing this morning. - Physical Exam Vitals/I&O's: Vital Signs Temp Pulse Resp BP Pulse Ox 98.8 F 89 18 147/78 H 95 04/21/19 03:14 04/21/19 03:27 04/21/19 03:14 04/21/19 03:14 04/21/19 03:14 Oxygen Flow Rate (L/min) 2 Oxygen Delivery Method Room Air Weight: 86.6 kg Body Mass Index (BMI) 27.8 Intake and Output for Last 24 Hours 04/19/19 04/20/19 04/21/19 23:59 23:59 23:59 Intake Total 1298.33 / 1298.33 2608.33 / 2608.33 1271.67 / 1271.67 Output Total 900 / 900 825 / 825 Balance 1298.33 / 1298.33 1708.33 / 1708.33 446.67 / 446.67 General: Alert, Oriented x3, Cooperative HEENT: Atraumatic, PERRLA, EOMI, Normocephalic Lungs: Clear to auscultation, No wheeze Cardiovascular: Regular rate, Regular Rhythm Extremities: No cyanosis, Capillary Refill Less than 3 Seconds - Dorsal and plantar amputation stump site right foot, No Calf Tenderness - Negative Jenny and Weaver sign bilateral, Diminished Peripheral Pulses, Edema - Mild to amputation stump site, - - Rectus ankle position with dorsiflexion past 90 degrees Skin: Incision - Well aligned and coapted transmetatarsal amputation stump site without gapping, necrosis, or purulence, redness, streaking, or other signs of infection. There is no odor. The nylon sutures remain intact Musculoskeletal: No Tenderness to Palpation of Joints or Extremities, Muscle Wasting, - - Compartment soft to palpate Neurological: - - Lack of normal epicritic sensation light touch is consistent with neuropathy status Psych/Mental Status: Normal Affect, Appropriate Laboratory Results 04/20/19 05:50: Lactate Dehydrogenase 183 04/20/19 11:18: POC Glucose 233 H 04/20/19 15:39: POC Glucose 118 H 04/20/19 21:36: POC Glucose 201 H 04/21/19 06:27: POC Glucose 110 Current Medications Acetaminophen (Tylenol) 650 mg PO Q6H PRN PRN PRN Reason: Pain Score 1-3/Temp > 100.7 F Last Admin: 04/21/19 01:49 Dose: 650 mg Documented by: Albuterol/Ipratropium (Duoneb) 3 ml INHALATION Q6HWA.RT [facility] Last Admin: 04/20/19 20:08 Dose: 3 ml Documented by: Aspirin (Aspirin, Baby) 81 mg PO DAILY@0800 [facility] Last Admin: 04/20/19 09:31 Dose: Not Given Documented by: Clopidogrel Bisulfate (Plavix) 75 mg PO DAILY [facility] Last Admin: 04/20/19 09:32 Dose: Not Given Documented by: Enoxaparin Sodium (Lovenox) 40 mg SC DAILY [facility] Last Admin: 04/19/19 19:37 Dose: 40 mg Documented by: Glucagon () 1 mg IM .X1 PRN PRN Reason: Hypoglycemia Guaifenesin (Robitussin) 20 ml PO Q4H PRN PRN PRN Reason: COUGH Lactated Ringer's () 1,000 mls @ 100 mls/hr IV .Q10H [facility] Last Admin: 04/21/19 05:05 Dose: 100 mls/hr Documented by: Sodium Chloride () 250 mls @ 15 mls/hr IV .[id number] PRN PRN Reason: Saline Flush Sodium Chloride () 250 mls @ 15 mls/hr IV .[id number] PRN PRN Reason: Additional IVPB Infusion Dextrose (Dextrose 10%-Water) 250 mls @ 999 mls/hr IV X1 PRN; Protocol PRN Reason: HYPOGLYCEMIA Insulin Glargine (Lantus (Bk)) 25 units SC QHS [facility] Last Admin: 04/20/19 21:37 Dose: 25 u Documented by: Insulin Human Lispro (Humalog Kwikpen (Bk)) 0 unit SC ACHS [facility]; Protocol Last Admin: 04/21/19 06:36 Dose: Not Given Documented by: Morphine Sulfate () 2 mg IV Q3H PRN PRN PRN Reason: Pain Score 6-10/10 Last Admin: 04/20/19 23:11 Dose: 2 mg Documented by: Nitroglycerin (Nitrostat) 0.4 mg SUBLINGUAL Q5M PRN PRN Reason: CARDIAC/CHEST PAIN Ondansetron HCl (Zofran) 4 mg IV Q8H PRN PRN PRN Reason: NAUSEA/VOMITING Oxycodone HCl (Oxyir) 5 mg PO Q4H PRN PRN PRN Reason: Pain Score 4-5/10 Last Admin: 04/21/19 01:49 Dose: 5 mg Documented by: Oxycodone HCl (Oxyir) 10 mg PO DAILY [facility] Last Admin: 04/20/19 09:37 Dose: 10 mg Documented by: Pantoprazole Sodium (Protonix) 20 mg PO BID [facility] Last Admin: 04/20/19 21:39 Dose: 20 mg Documented by: Senna/Docusate Sodium (Senokot-S, Lawanda-Colace) 2 tablet PO BID PRN PRN PRN Reason: Constipation Sodium Chloride () 10 - 40 ml IV UD PRN PRN Reason: SALINE FLUSH Medical Necessity - Tobacco Use Smoking Status: Current every day smoker Assessment/Plan All Active Problems Hyperkalemia (Acute) Postoperative day #1 right transmetatarsal amputation secondary to chronic right foot ulcers with previously diagnosed osteomyelitis Diabetes with neuropathy Chronic kidney disease COPD Coronary artery disease Peripheral vascular disease status post intervention including superficial femoral artery stenting Smoker Delayed healing Recent hyperkalemia I reviewed his case and recent intervention. His postoperative dressing was changed. There is no active bleeding or signs of infection noted. A new well-padded dressing and posterior mold splint was reapplied with the right lower extremity in a rectus position. He was advised to maintain a strict nonweightbearing status. He will work with physical and Occupational Therapy this morning. I will will review his morning labs to confirm continued stability and medical stabilization. From a podiatric surgical standpoint is okay for him to get discharged home. Pain medication prescription will be left in his chart and I will review his medical reconciliation with the medicine team. It is okay for him to resume his anticoagulation medication at this time. It is noted that intraoperative microbiology and pathology specimens were taken his clearance fragments. There was no evidence of purulence clinically or surgically and we will still consider if there is chronic osteomyelitis given his past history. I do not recommend antibiotics at this time. His clearance fragment results will be followed closely and antibiotics and infectious disease referral will be considered if these are positive. He will follow-up at the foot and ankle center this upcoming Thursday and will call to confirm the appointment time. Medical management and DVT prophylaxis per hospitalist team is greatly appreciated. Tasia Villasenor DPM, [facility] [phone]
[2019-04-21 07:12] VITALS: PULSE 86; RESP 18; O2SAT 94
[2019-04-21] MEDS: Ipratropium/Albuterol Sulfate 3 ML AMPUL.NEB INHALATION (07:12)
--- NOTE | 2019-04-21 07:16 | DCINST_ITS ---
Discharge Diet: Carb Control Diet Discharge Activity: May Not Drive, May not drive while taking narcotic pain medications., May Not Shower Weight Bearing Status: No weight bearing Keep extremity elevated above heart level: Right Leg Call your doctor if your incision/area has: Continuous Slow Oozing, Sudden Increased Bleeding, Increased Pain/ Swelling, Increased Redness, Foul Smelling Discharge, Swelling at the incision site Call your doctor if you observe: Fever of 101 or Higher, Calf discomfort, Uncontrolled pain Cleanse incision/area with: Keep Dressing Clean & Dry Allergies/Adverse Reactions: Allergies No Known Allergies Allergy (Verified 04/19/19 12:45) Medications to take at Discharge Clopidogrel Bisulfate [Plavix] 75 mg PO DAILY 03/02/19 Insulin Detemir [Levemir Flextouch] 32 unit SQ QHS 03/02/19 Omeprazole [Prilosec] 20 mg PO BID 03/02/19 Aspirin 81 mg PO DAILY 04/19/19 Cilostazol [Pletal] 50 mg PO DAILY 04/19/19 Furosemide [Lasix] 40 mg PO 04/19/19 Gabapentin 600 mg PO DAILY 04/19/19 Liraglutide [Victoza] 12 unit SQ DAILY 04/19/19 Oxycodone HCl/Acetaminophen [Percocet 10-325 mg Tablet] 1 tab PO DAILY 04/19/19 Hydrocodone/Acetaminophen [Hydrocodon-Acetaminophen 5-325] 1 tab PO Q6H PRN PRN #30 tab 04/21/19 The following prescriptions were given: Hydrocodone/Acetaminophen [Hydrocodon-Acetaminophen 5-325] 1 tab PO Q6H PRN PRN #30 tab PRN Reason: Pain Prescription Printed Primary Care Physician: JOSE FRANCISCO STORY [Other] Test Results: Test results from this visit will be discussed in further detail at your follow- up appointment, if applicable. Please Follow Up With: Tasia Villasenor DPM When: [facility] Thursday04/25/19. Call [phone] to schedule. Proposed Discharge Date: 04/21/19
[2019-04-21 07:21] LABS: Absolute Lymphocyte Count 1.71 X10^3/uL (0.83-4.51); Absolute Neutrophil Count 6.8 X10^3/uL (2.0-7.7); Basophil# 0.08 X10^3/uL; Basophil% 0.8 % (0-1); Eosinophil# 0.27 X10^3/uL; Eosinophils% 2.7 % (0-5); Hematocrit 29.6 % (40-54); Hemoglobin 9.2 g/dL (13.0-16.5); Lymphocyte # 1.71 X10^3/ul (4.0); Lymphocyte % 17.3 % (19-41); Mean Corp Hgb Conc 31.1 g/dL (32-36); Mean Corpuscular Hgb 28.6 pg (27.0-32.0); Mean Corpuscular Volume 91.9 fL (80-94); Mean Platelet Vol. 10.5 fl (6.2-12.0); Monocyte# 1.03 X10^3/uL; Monocyte% 10.4 % (0-10); NRBC Flagged by Analyzer 0 % (0-5); Neutrophil # 6.76 X10^3/uL (2.7-7.7); Neutrophil % 68.7 % (47-70); Platelet Count 217 K/mm3 (150-450); RBC Distribution Width CV 15.3 % (11.6-14.6); RBC Distribution Width SD 51.8 fl (35.1-43.9); Red Blood Count 3.22 M/mm3 (4.6-6.2); White Blood Count 9.9 K/mm3 (4.4-11.0)
[2019-04-21 07:39] LABS: Anion Gap 5 (5-15); BUN 37 mg/dL (7-18); Chloride 112 mmol/L (98-107); Creatinine, Serum 1.37 mg/dL (0.70-1.30); EST Glomerular Filtration Rate 56 mL/min (>60); Est Glom Filt Rate - Afr Amer 68 mL/min (>60); Estimated Creatinine Clearance 57.34 ml/min; Glucose 117 mg/dL (74-106); Sodium Level 142 mmol/L (136-145)
[2019-04-21 08:58] VITALS: PULSE 92
[2019-04-21 09:27] VITALS: BP 165/83; PULSE 97; RESP 18; TEMP 36.9; O2SAT 94
[2019-04-21] MEDS: Aspirin 81 MG TAB.CHEW PO (09:29)
[2019-04-21] MEDS: Pantoprazole Sodium 20 MG Tablet PO (09:29)
[2019-04-21] MEDS: oxyCODONE 5 MG Tablet 10 MG PO (09:29)
--- NOTE | 2019-04-21 10:09 | PCM.PROGNOTE ---
<Sara Wynn - Last Filed: 04/21/19 10:20> Subjective: Patient seen and examined. Plan for discharge today per podiatry. Patient denies current symptoms. Right lower extremity dressing clean dry and intact. Plan for follow-up at wound center/podiatry Thursday. - Physical Exam Vitals/I&O's: Vital Signs Temp Pulse Resp BP Pulse Ox 98.5 F 97 18 165/83 H 94 04/21/19 09:27 04/21/19 09:27 04/21/19 09:27 04/21/19 09:27 04/21/19 09:27 Oxygen Flow Rate (L/min) 2 Oxygen Delivery Method Room Air Weight: 190 lb 14.725 oz Body Mass Index (BMI) 27.8 Intake and Output for Last 24 Hours 04/19/19 04/20/19 04/21/19 23:59 23:59 23:59 Intake Total 1298.33 / 1298.33 2608.33 / 2608.33 1271.67 / 1271.67 Output Total 900 / 900 825 / 825 Balance 1298.33 / 1298.33 1708.33 / 1708.33 446.67 / 446.67 General: Alert, Oriented x3, Cooperative HEENT: Atraumatic, PERRLA, EOMI, Normocephalic Neck: Supple, No JVD, Negative Carotid Bruits Lungs: Clear to auscultation, Normal air movement Cardiovascular: Regular rate, Regular Rhythm, Normal S1, Normal S2, No murmurs Abdomen: Bowel Sounds Present, Soft, Non Tender, Non-Distended Extremities: No clubbing, No cyanosis, No edema, Capillary Refill Less than 3 Seconds Skin: No rashes, No breakdown, - - Right lower extremity dressing clean dry and intact Musculoskeletal: No Tenderness to Palpation of Joints or Extremities Neurological: Cranial nerves II-XII grossly intact, Neuro grossly intact Psych/Mental Status: Normal Affect, Appropriate Laboratory Results 04/20/19 05:50: Lactate Dehydrogenase 183 04/20/19 11:18: POC Glucose 233 H 04/20/19 15:39: POC Glucose 118 H 04/20/19 21:36: POC Glucose 201 H 04/21/19 06:27: POC Glucose 110 04/21/19 07:00: WBC 9.9, RBC 3.22 L, Hgb 9.2 L, Hct 29.6 L, MCV 91.9, MCH 28.6, MCHC 31.1 L, RDW Std Deviation 51.8 H, RDW Coeff of Judit 15.3 H, Plt Count 217, MPV 10.5, Immature Gran % (Auto) 0.100, Neut % (Auto) 68.7, Lymph % (Auto) 17.3 L, Atkinson % (Auto) 10.4 H, Eos % (Auto) 2.7, Baso % (Auto) 0.8, Absolute Neuts (auto) 6.8, Absolute Lymphs (auto) 1.71, Nucleated RBC % 0 04/21/19 07:00: Sodium 142, Potassium 5.0, Chloride 112 H, Carbon Dioxide 25.0, Anion Gap 5, BUN 37 H, Creatinine 1.37 H, Estim Creat Clear Calc 57.34, Est GFR (MDRD) Af Amer 68, Est GFR (MDRD) Non-Af 56 L, BUN/Creatinine Ratio 27.0 H, Glucose 117 H, Calcium 8.0 L Current Medications Acetaminophen (Tylenol) 650 mg PO Q6H PRN PRN PRN Reason: Pain Score 1-3/Temp > 100.7 F Last Admin: 04/21/19 01:49 Dose: 650 mg Documented by: Albuterol/Ipratropium (Duoneb) 3 ml INHALATION Q6HWA.RT [facility] Last Admin: 04/21/19 07:12 Dose: 3 ml Documented by: Aspirin (Aspirin, Baby) 81 mg PO DAILY@0800 [facility] Last Admin: 04/21/19 09:29 Dose: 81 mg Documented by: Clopidogrel Bisulfate (Plavix) 75 mg PO DAILY [facility] Last Admin: 04/20/19 09:32 Dose: Not Given Documented by: Enoxaparin Sodium (Lovenox) 40 mg SC DAILY [facility] Last Admin: 04/19/19 19:37 Dose: 40 mg Documented by: Glucagon () 1 mg IM .X1 PRN PRN Reason: Hypoglycemia Guaifenesin (Robitussin) 20 ml PO Q4H PRN PRN PRN Reason: COUGH Lactated Ringer's () 1,000 mls @ 100 mls/hr IV .Q10H [facility] Last Admin: 04/21/19 05:05 Dose: 100 mls/hr Documented by: Sodium Chloride () 250 mls @ 15 mls/hr IV .[id number] PRN PRN Reason: Saline Flush Sodium Chloride () 250 mls @ 15 mls/hr IV .[id number] PRN PRN Reason: Additional IVPB Infusion Dextrose (Dextrose 10%-Water) 250 mls @ 999 mls/hr IV X1 PRN; Protocol PRN Reason: HYPOGLYCEMIA Insulin Glargine (Lantus ([facility])) 25 units SC QHS [facility] Last Admin: 04/20/19 21:37 Dose: 25 u Documented by: Insulin Human Lispro (Humalog Kwikpen ([facility])) 0 unit SC ACHS [facility]; Protocol Last Admin: 04/21/19 06:36 Dose: Not Given Documented by: Morphine Sulfate () 2 mg IV Q3H PRN PRN PRN Reason: Pain Score 6-10/10 Last Admin: 04/20/19 23:11 Dose: 2 mg Documented by: Nitroglycerin (Nitrostat) 0.4 mg SUBLINGUAL Q5M PRN PRN Reason: CARDIAC/CHEST PAIN Ondansetron HCl (Zofran) 4 mg IV Q8H PRN PRN PRN Reason: NAUSEA/VOMITING Oxycodone HCl (Oxyir) 5 mg PO Q4H PRN PRN PRN Reason: Pain Score 4-5/10 Last Admin: 04/21/19 01:49 Dose: 5 mg Documented by: Oxycodone HCl (Oxyir) 10 mg PO DAILY [facility] Last Admin: 04/21/19 09:29 Dose: 10 mg Documented by: Pantoprazole Sodium (Protonix) 20 mg PO BID [facility] Last Admin: 04/21/19 09:29 Dose: 20 mg Documented by: Senna/Docusate Sodium (Senokot-S, Lawanda-Colace) 2 tablet PO BID PRN PRN PRN Reason: Constipation Sodium Chloride () 10 - 40 ml IV UD PRN PRN Reason: SALINE FLUSH Medical Necessity - Tobacco Use Smoking Status: Current every day smoker Assessment/Plan All Active Problems Hyperkalemia (Acute) 1. Hyperkalemia-resolved following calcium and Kayexalate. Unclear etiology. Nephrology consulted during admission. 2. Nonhealing right foot ulcerations with chronic osteomyelitis status post right revisional transmetatarsal amputation 04/20/[address] Villasenor-continue dressing changes and follow-up per podiatry. 3. Chronic kidney disease stage III- at baseline. 4. Chronic COPD-no exacerbation. 5. Type 2 diabetes mellitus-continue home regimen. 6. Chronic normocytic anemia- stable 7. GERD- PPI 8. PAD-continue aspirin, Pletal, Plavix. DVT prophylaxis-Lovenox This patient was seen by LEROY Early under the supervision of Dr. Garcia. <Agnieszka Garcia - Last Filed: 04/21/19 16:13> - Physical Exam Vitals/I&O's: Vital Signs Temp Pulse Resp BP Pulse Ox 98.5 F 97 18 165/83 H 94 04/21/19 09:27 04/21/19 09:27 04/21/19 09:27 04/21/19 09:27 04/21/19 09:27 Oxygen Flow Rate (L/min) 2 Oxygen Delivery Method Room Air Weight: 190 lb 14.725 oz Body Mass Index (BMI) 27.8 Intake and Output for Last 24 Hours 04/19/19 04/20/19 04/21/19 23:59 23:59 23:59 Intake Total 1298.33 / 1298.33 2608.33 / 2608.33 2253.34 / 2253.34 Output Total 900 / 900 1125 / 1125 Balance 1298.33 / 1298.33 1708.33 / 1708.33 1128.34 / 1128.34 Microbiology Past 72 Hours 04/20/19 17:30 Bone - Right Foot Gram Stain - Final 04/20/19 17:30 Bone - Right Foot Gram Stain - Final 04/20/19 17:30 Bone - Right Foot Wound Culture - Preliminary No growth-Final to follow Laboratory Results 04/20/19 21:36: POC Glucose 201 H 04/21/19 06:27: POC Glucose 110 04/21/19 07:00: WBC 9.9, RBC 3.22 L, Hgb 9.2 L, Hct 29.6 L, MCV 91.9, MCH 28.6, MCHC 31.1 L, RDW Std Deviation 51.8 H, RDW Coeff of Judit 15.3 H, Plt Count 217, MPV 10.5, Immature Gran % (Auto) 0.100, Neut % (Auto) 68.7, Lymph % (Auto) 17.3 L, Atkinson % (Auto) 10.4 H, Eos % (Auto) 2.7, Baso % (Auto) 0.8, Absolute Neuts (auto) 6.8, Absolute Lymphs (auto) 1.71, Nucleated RBC % 0 04/21/19 07:00: Sodium 142, Potassium 5.0, Chloride 112 H, Carbon Dioxide 25.0, Anion Gap 5, BUN 37 H, Creatinine 1.37 H, Estim Creat Clear Calc 57.34, Est GFR (MDRD) Af Amer 68, Est GFR (MDRD) Non-Af 56 L, BUN/Creatinine Ratio 27.0 H, Glucose 117 H, Calcium 8.0 L 04/21/19 11:17: POC Glucose 184 H Assessment/Plan Patient seen by LEROY Early under my supervision. Patient seen and examined. He had no complaints. He had surgery by Dr. Villasenor yesterday. Review of signs otherwise negative. Labs and vitals reviewed. o/e: Vital Signs Height 5 ft 9.5 in Weight: 190 lb 14.725 oz Weight in Pounds 190.9 lbs Pulse Ox 94 Temperature 98.5 F Pulse Rate 97 Respiratory Rate 18 Blood Pressure 165/83 Blood Pressure Position Sitting General: Alert, Oriented x3, Cooperative HEENT: Atraumatic, PERRLA, EOMI, Normocephalic Neck: Supple, No JVD, Negative Carotid Bruits Lungs: Clear to auscultation, Normal air movement Cardiovascular: Regular rate, Regular Rhythm, Normal S1, Normal S2, No murmurs Abdomen: Bowel Sounds Present, Soft, Non Tender, Non-Distended Extremities: No clubbing, No cyanosis, No edema, Capillary Refill Less than 3 Seconds Skin: No rashes, No breakdown, - - Right lower extremity dressing clean dry and intact Musculoskeletal: No Tenderness to Palpation of Joints or Extremities Neurological: Cranial nerves II-XII grossly intact, Neuro grossly intact Psych/Mental Status: Normal Affect, Appropriate Plan is for discharge home today. For follow-up with podiatry for dressing changes as recommended. Rest of management as per LEROY Early's notes which I have reviewed and endorsed. Code Visit Inpatient E&M: 78814 Subs Hosp L2
[2019-04-21] MEDS: Insulin Lispro 100 UNIT/ML INSULN.PEN SC (11:19)
--- NOTE | 2019-04-21 11:30 | CASEMGMT ---
RN TRACEY ANATOMIC PATHOLOGY MANAGER CM to room to meet with patient for initial transition planning/care coordination assessment. REYES WEBB introduced self and role at [facility]. Pt voices understanding and consents to assessment at this time. Pt sitting up in recliner chair in room at this time. Pt is A/O at this time and answers all questions appropriately. Care providers, pharmacy, and demographics verified at this time. PCP: Dr Shailesh Ann Specialists: [facility]es [facility], Dr Villasenor--podiatry, Dr Beach--sap solutions architect @ [facility], Dr Fraire--integration aide in [place], [place]. Preferred Pharmacy: [facility] Insurance: MCR. No supplemental insurance Prescription Benefit: Yes--[employer] Living Will/HPOA: Pt does not currently have LW/HCPOA and declines info at this time. Pt made aware that he can contact SW as an out-pt and make appt in the future if he decides he would like to talk with someone about this or would like to utilize [facility] social work for advanced directive completion. Given Hardware Engineer [employer] card with information and contact number. Pt expresses understanding. LNOK: 2 sons and a daughter. Living Arrangements: Daughter, Nieves, lives with patient. She works (3) 12-hr shifts. Pt's brother lives nearby is available to assist as needed if Nieves is not available. Transportation: Pt states usually drives, but now that he is NWB, his daughter can help with transportation. Pt's friend, Quan, will be driving him home @ discharge today and can also assist as needed. DME: States has the following DME: [id number], shower chair, cane, crutches, walker, W/C, Knee scooter, and glucometer. States glucometer works properly and he has all the needed supplies for it. Also has O2 @ 2L/M @ HS only. Has concentrator and one portable tank. States does not remember name of company he gets the oxygen through. Pt states no need for further DME at this time. HHC/SNF: No history of SNF. States had HHC in the past about 25 yrs ago for wound care for a cyst he had. PT/OT notes have been reviewed. PT recommends further therapy. Pt made aware. Denies need for HHC or OP therapy at this time. Made aware, if he decides in the future that he would like therapy, to discuss this with his PCP. Pt voices understanding. Pt wishes to return home and states has no concerns with going home at time of discharge. CM to follow for any discharge planning/needs. Pt voices no further concerns/needs at this time. Advised pt to ask for CM if any further questions/concerns/needs arise. Voices understanding. PLAN: Home. Lauren LOREDO RN CM
[2019-04-21 11:45] LABS: Bedside Glucose 184 mg/dL (70-110)
--- NOTE | 2019-04-21 12:00 | PHA.DC.MC ---
Pharmacy Service has performed discharge medication reconciliation and counseling for this patient. The patient's discharge medication list was reviewed for discrepancies and discrepancies were resolved. Home Medications Clopidogrel Bisulfate [Plavix] 75 mg PO DAILY 03/02/19 Insulin Detemir [Levemir Flextouch] 32 unit SQ QHS 03/02/19 Omeprazole [Prilosec] 20 mg PO BID 03/02/19 Aspirin 81 mg PO DAILY 04/19/19 Cilostazol [Pletal] 50 mg PO DAILY 04/19/19 Furosemide [Lasix] 40 mg PO 04/19/19 Gabapentin 600 mg PO DAILY 04/19/19 Liraglutide [Victoza] 12 unit SQ DAILY 04/19/19 Oxycodone HCl/Acetaminophen [Percocet 10-325 mg Tablet] 1 tab PO DAILY 04/19/19 Hydrocodone/Acetaminophen [Hydrocodon-Acetaminophen 5-325] 1 tab PO Q6H PRN PRN #30 tab 04/21/19 The patient was counseled on the following discharge medications and changes in medications for homegoing were reviewed. 1. NORCO 5/325 The Reason for Use, instructions for use, and potential side effects were reviewed for all new medications. The patient's questions regarding all of their medications were answered. The patient was able to verbally demonstrate an understanding of their discharge medications.
--- NOTE | 2019-04-21 12:16 | PCM.DC.SUM ---
Discharge Date and Diagnosis Date of Admission: 04/19/19 Date of Discharge: 04/21/19 - Primary Discharge Diagnosis Active and Suspected Problems Hyperkalemia (Acute) s/p transmetatarsal amputation secondary to chronic nonhealing ulcer and suspected previous subacute osteomyelitis - Secondary Discharge Diagnosis Chronic Problems Type 2 diabetes mellitus (Chronic) Right foot ulcer (Chronic) Stage 2 chronic kidney disease (Chronic) Smoker (Chronic) COPD (chronic obstructive pulmonary disease) (Chronic) PVD (peripheral vascular disease) (Chronic) Type 2 diabetes mellitus with diabetic polyneuropathy (Chronic) Amputation at midfoot (Chronic) Non-pressure chronic ulcer of other part of right foot with fat layer exposed (Chronic) Malnutrition (Chronic) Delayed wound healing (Chronic) Claustrophobia (Chronic) Chronic pain (Chronic) CKD stage 3 due to type 2 diabetes mellitus (Chronic) Hospital Course and Treatment Imaging Results: X-rays from outside facility in [facility] were reviewed of the right foot with previous forefoot amputation including resection of metatarsal heads 1, 2, 4, and 5. There is also a retained partially resected third metatarsal structure, calcification and some other osseous bodies noted near the adjacent chronic nonhealing ulcer site. Postoperative x-rays of the right foot (3 views) demonstrate further dedicated transmetatarsal amputation resection without any acute injuries or retained foreign bodies. Operations: - - right revisional transmetatarsal amputation Procedures: EKG Summary of Care Provided: The patient is a 58 year old M presented for same-day surgical transmetatarsal amputation which was canceled secondary to preoperative hyperkalemia with EKG changes. He was admitted for further stabilization and this was achieved with kayexalate, calcium carbonate, and insulin. He underwent right foot transmetatarsal amputation the following day and remained stable during the postoperative setting. Hospitalist was on consultation for medical management. He was able to maintain a nonweightbearing status to the surgical limb. He resumed anticoagulation medication. Postoperative labs were stable. Intraoperative clearance fragments were obtained and these were sent to microbiology and pathology. The results are pending. Antibiotics are not recommended at this time. He was provided with a short course of pain medication as needed during the postoperative setting. He was then discharged home and will follow up with the foot [facility] ankle center. - Physical Exam Vitals/I&O's: Vital Signs Temp Pulse Resp BP Pulse Ox 98.5 F 97 18 165/83 H 94 04/21/19 09:27 04/21/19 09:27 04/21/19 09:27 04/21/19 09:27 04/21/19 09:27 Oxygen Flow Rate (L/min) 2 Oxygen Delivery Method Room Air Weight: 86.6 kg Body Mass Index (BMI) 27.8 Intake and Output for Last 24 Hours 04/19/19 04/20/19 04/21/19 23:59 23:59 23:59 Intake Total 1298.33 / 1298.33 2608.33 / 2608.33 1893.34 / 1893.34 Output Total 900 / 900 825 / 825 Balance 1298.33 / 1298.33 1708.33 / 1708.33 1068.34 / 1068.34 General: Alert, Oriented x3, Cooperative HEENT: Atraumatic Lungs: Clear to auscultation Cardiovascular: Regular rate, Regular Rhythm Extremities: No cyanosis, Capillary Refill Less than 3 Seconds, No Calf Tenderness - negative delfino and pina sign bilateral, Diminished Peripheral Pulses, Edema - mild, Tenderness - transmetatarsal amputation right Skin: Incision - well aligned and coapted without necrosis, gapping, or infection Musculoskeletal: No Tenderness to Palpation of Joints or Extremities, Muscle Wasting, - - compartments soft right lower extremity Neurological: - - lack of normal epicritic sensation via light touch noted Psych/Mental Status: Normal Affect, Appropriate Laboratory Results 04/20/19 05:50: Lactate Dehydrogenase 183 04/20/19 15:39: POC Glucose 118 H 04/20/19 21:36: POC Glucose 201 H 04/21/19 06:27: POC Glucose 110 04/21/19 07:00: WBC 9.9, RBC 3.22 L, Hgb 9.2 L, Hct 29.6 L, MCV 91.9, MCH 28.6, MCHC 31.1 L, RDW Std Deviation 51.8 H, RDW Coeff of Judit 15.3 H, Plt Count 217, MPV 10.5, Immature Gran % (Auto) 0.100, Neut % (Auto) 68.7, Lymph % (Auto) 17.3 L, [place] % (Auto) 10.4 H, Eos % (Auto) 2.7, Baso % (Auto) 0.8, Absolute Neuts (auto) 6.8, Absolute Lymphs (auto) 1.71, Nucleated RBC % 0 04/21/19 07:00: Sodium 142, Potassium 5.0, Chloride 112 H, Carbon Dioxide 25.0, Anion Gap 5, BUN 37 H, Creatinine 1.37 H, Estim Creat Clear Calc 57.34, Est GFR (MDRD) Af Amer 68, Est GFR (MDRD) Non-Af 56 L, BUN/Creatinine Ratio 27.0 H, Glucose 117 H, Calcium 8.0 L 04/21/19 11:17: POC Glucose 184 H Current Medications Acetaminophen (Tylenol) 650 mg PO Q6H PRN PRN PRN Reason: Pain Score 1-3/Temp > 100.7 F Last Admin: 04/21/19 01:49 Dose: 650 mg Documented by: Albuterol/Ipratropium (Duoneb) 3 ml INHALATION Q6HWA.RT COUNTS [facility]CLUDE 234 BEDS AT [facility] Last Admin: 04/21/19 07:12 Dose: 3 ml Documented by: Aspirin (Aspirin, Baby) 81 mg PO DAILY@0800 [facility]S [facility]CLUDE 234 BEDS AT [facility] Last Admin: 04/21/19 09:29 Dose: 81 mg Documented by: Clopidogrel Bisulfate (Plavix) 75 mg PO DAILY [facility]CLUDE 234 BEDS AT [facility] Last Admin: 04/20/19 09:32 Dose: Not Given Documented by: Enoxaparin Sodium (Lovenox) 40 mg SC DAILY [facility]S [facility]CLUDE 234 BEDS AT [facility] Last Admin: 04/19/19 19:37 Dose: 40 mg Documented by: Glucagon () 1 mg IM .X1 PRN PRN Reason: Hypoglycemia Guaifenesin (Robitussin) 20 ml PO Q4H PRN PRN PRN Reason: COUGH Lactated Ringer's () 1,000 mls @ 100 mls/hr IV .Q10H COUNTS INCLUDE 234 BEDS AT [facility] Last Infusion: 04/21/19 11:18 Dose: Infused Documented by: Sodium Chloride () 250 mls @ 15 mls/hr IV .[id number] PRN PRN Reason: Saline Flush Sodium Chloride () 250 mls @ 15 mls/hr IV .[id number] PRN PRN Reason: Additional IVPB Infusion Dextrose (Dextrose 10%-Water) 250 mls @ 999 mls/hr IV X1 PRN; Protocol PRN Reason: HYPOGLYCEMIA Insulin Glargine (Lantus ([facility])) 25 units SC QHS [facility]S INCLUDE 234 BEDS AT [facility] Last Admin: 04/20/19 21:37 Dose: 25 u Documented by: Insulin Human Lispro (Humalog Kwikpen ([facility])) 0 unit [facility]; Protocol Last Admin: 04/21/19 11:19 Dose: 1 u Documented by: Morphine Sulfate () 2 mg IV Q3H PRN PRN PRN Reason: Pain Score 6-10/10 Last Admin: 04/20/19 23:11 Dose: 2 mg Documented by: Nitroglycerin (Nitrostat) 0.4 mg SUBLINGUAL Q5M PRN PRN Reason: CARDIAC/CHEST PAIN Ondansetron HCl (Zofran) 4 mg IV Q8H PRN PRN PRN Reason: NAUSEA/VOMITING Oxycodone HCl (Oxyir) 5 mg PO Q4H PRN PRN PRN Reason: Pain Score 4-5/10 Last Admin: 04/21/19 01:49 Dose: 5 mg Documented by: Oxycodone HCl (Oxyir) 10 mg PO DAILY COUNTS INCLUDE 234 BEDS AT [facility] Last Admin: 04/21/19 09:29 Dose: 10 mg Documented by: Pantoprazole Sodium (Protonix) 20 mg PO BID COUNTS INCLUDE 234 BEDS AT [facility] Last Admin: 04/21/19 09:29 Dose: 20 mg Documented by: Senna/Docusate Sodium (Senokot-S, Lawanda-Colace) 2 tablet PO BID PRN PRN PRN Reason: Constipation Sodium Chloride () 10 - 40 ml IV UD PRN PRN Reason: SALINE FLUSH Discharge Diet: Carb Control Diet Discharge Activity: May Not Drive, May not drive while taking narcotic pain medications., May Not Shower Weight Bearing Status: No weight bearing Keep extremity elevated above heart level: Right Leg Call your doctor if your incision/area has: Continuous Slow Oozing, Sudden Increased Bleeding, Increased Pain/ Swelling, Increased Redness, Foul Smelling Discharge, Swelling at the incision site Call your doctor if you observe: Fever of 101 or Higher, Calf discomfort, Uncontrolled pain Cleanse incision/area with: Keep Dressing Clean & Dry Home Medications: Medications to take at Discharge Clopidogrel Bisulfate [Plavix] 75 mg PO DAILY 03/02/19 Insulin Detemir [Levemir Flextouch] 32 unit SQ QHS 03/02/19 Omeprazole [Prilosec] 20 mg PO BID 03/02/19 Aspirin 81 mg PO DAILY 12/17/19 Cilostazol [Pletal] 50 mg PO DAILY 04/19/19 Furosemide [Lasix] 40 mg PO 04/19/19 Gabapentin 600 mg PO DAILY 04/19/19 Liraglutide [Victoza] 12 unit SQ DAILY 04/19/19 Oxycodone HCl/Acetaminophen [Percocet 10-325 mg Tablet] 1 tab PO DAILY 04/19/19 Hydrocodone/Acetaminophen [Hydrocodon-Acetaminophen 5-325] 1 tab PO Q6H PRN PRN #30 tab 04/21/19 Following Prescrptions Were Given to Patient: Hydrocodone/Acetaminophen [Hydrocodon-Acetaminophen 5-325] 1 tab PO Q6H PRN PRN #30 tab PRN Reason: Pain Prescription Printed Primary Care Physician: JOSE FRANCISCO STORY [Other] Please Follow Up With: Tasia Villasenor DPM When: [facility] Thursday04/25/19. Call [phone] to schedule. Medical Necessity - Tobacco Use Smoking Status: Current every day smoker Tobacco Use: Cigarettes Meaningful Use Info Meaningful Use Diagnoses (Choose all that apply): None applicable
== END 2019-04-21 13:24 | disposition home or self-care (01) | DRG 617 ==
LOC: SDC 17:19 → PCU 17:19
PROVIDERS: Anesthesiology; Internal Medicine; Physician Assistant; Admitting Provider Podiatrist; Referring Provider Podiatrist; Visit Provider Student in an Organized Health Care Education/Training Program
PROC: (CPT 28805; principal; 2019-04-19 13:15)
PROC: 0Y6M0Z9 Detachment at Right Foot, Partial 1st Ray, Open Approach (ICD-10-PCS; CPT 28805; principal; 2019-04-20 15:45)
DX: E11.69 Type 2 diabetes mellitus with other specified complication (principal); I50.42 Chronic combined systolic (congestive) and diastolic (congestive) heart failure; M86.171 Other acute osteomyelitis, right ankle and foot; E11.22 Type 2 diabetes mellitus with diabetic chronic kidney disease; J44.9 Chronic obstructive pulmonary disease, unspecified; I25.10 Atherosclerotic heart disease of native coronary artery without angina pectoris; Z23 Encounter for immunization; E87.5 Hyperkalemia; E11.51 Type 2 diabetes mellitus with diabetic peripheral angiopathy without gangrene; N18.3 Chronic kidney disease, stage 3 (moderate); D64.9 Anemia, unspecified; E11.42 Type 2 diabetes mellitus with diabetic polyneuropathy; F40.240 Claustrophobia; F17.210 Nicotine dependence, cigarettes, uncomplicated; Z79.4 Long term (current) use of insulin; E11.621 Type 2 diabetes mellitus with foot ulcer; L97.519 Non-pressure chronic ulcer of other part of right foot with unspecified severity; Z95.5 Presence of coronary angioplasty implant and graft; Z95.820 Peripheral vascular angioplasty status with implants and grafts
CPT/HCPCS: 36415; 73620; 73630; 76000; 80048; 80061; 82962; 83615; 83735; 84443; 85025; 87015; 87070; 87075; 87077; 87102; 87116; 87176; 87205; 87206; 88304; 88305; 88311; 93005; 94640; 97162; 97166; 99251; G0008; J7120; 90686; A4216; G0463; J0610; J2405

== ENCOUNTER 2019-05-03 15:00 | Outpatient (RCR) | payer MEDICARE, SELFPAY ==
[2019-04-03 01:08] VITALS: BP 154/88; PULSE 97; RESP 16; TEMP 36.5
[2019-04-06 15:58] VITALS: BP 155/87; PULSE 91; RESP 18; TEMP 36.6; BMI 28.4
--- NOTE | 2019-04-06 17:10 | PCM.WC.PN ---
(1) PVD (peripheral vascular disease) Status: Chronic Code(s): I73.9 - Peripheral vascular disease, unspecified (2) Type 2 diabetes mellitus with diabetic polyneuropathy Status: Chronic Code(s): E11.42 - Type 2 diabetes mellitus with diabetic polyneuropathy (3) Non-pressure chronic ulcer of other part of right foot with fat layer exposed Status: Chronic Code(s): L97.512 - Non-pressure chronic ulcer of other part of right foot with fat layer exposed (4) Malnutrition Status: Chronic Code(s): E46 - Unspecified protein-calorie malnutrition (5) Delayed wound healing Status: Chronic Code(s): T14.8XXD - Other injury of unspecified body region, subsequent encounter (6) Chronic pain Status: Chronic Code(s): G89.29 - Other chronic pain (7) Osteomyelitis of right foot Status: Suspected Qualifiers: Osteomyelitis type: subacute Qualified Code(s): M86.271 - Subacute osteomyelitis, right ankle and foot Code(s): M86.9 - Osteomyelitis, unspecified Type of Wound Date of Service: 04/07/19 Chief Complaint: Right foot ulcers History of Wound: This 58-year-old male with multiple comorbidities with self referred for hyperbaric oxygen therapy consideration and to see if any other interventions are available for his treatment of nonhealing right foot ulcers. His medical records from outside facilities and previous wound healing center provider were reviewed in detail with the following summary: 02/26/18 Left superficial femoral artery diffuse 70-75% disease. S/p TATTOO ARTIST using drug coated balloons. 03/15/18 MRI right foot-osteomyelitis involving the proximal and distal phalanx of the great toe with suspected septic arthritis. 03/18/19 Pathology: Right great toe amputation due to acute osteomyelitis. Resection margin appears to be viable and uninvolved. 07/27/18 xray right foot findings: The patient is post amputation of the first toe at the MTP joint. There is fragmentation and bony destruction of the remnant of the first metatarsal. There is bony destruction and pathological fracture through the second proximal phalanx. There is a slight step off the third metatarsal head suggesting an early area of fragmentation. The third and fourth digits are intact. There is lucency of the fifth metatarsal head which might represent subtle osteomyelitis although this is probably normal. Hindfoot and midfoot generally unremarkable. THere is soft tissue swelling and arterial calcification noted. Impression: areas of osteomyelitis as described above. 08/03/18 Pathology: 2nd, 34d, 4th, 5th toes right foot: four toes, three of which exhibit gangrene. Two of the toes show underlying acute osteomyelitis. The resected margins of all the toes are free of the acute osteomyelitis. The soft tissue resected margins are viable. 09/09/18 Echocardiogram Systolic LV function (EF 50%). Grade 1 diastolic dysfunction. Mild LV hypertrophy. Left atrium mildly dilated. 01/25/19 MRI right foot: Large deep ulceration/intact abscess with a tract extending to the tip of the remaining fourth metatarsal where findings of osteomyelitis are present. The bone edema extends to the proximal portion of the bone. There is induration or early ulceration also surrounding the first metatarsal distally. Underlying osteomyelitis cannot be excluded. He was recently hospitalized 02/09/19 at [facility] for bacterial abscess involving the right foot likely due to polymicrobial organism. The previous wound culture showed Enterobacter cloacae on 07/27/18. Right foot osteomyelitis which is again due to polymicrobial organism. CAD, DM, HTN, GERD, Arthritis, Renal insufficiency, Hiatal hernia , sleep apnea, COPD. He was treated with Zosyn and Vancomycin. They wanted to place a PICC line and give IV antibiotics for six weeks. The patient refused to stay and refused the PICC line. He is afraid the antibiotics would damage his kidneys and his CKD stage 2. He left the hospital against medical advice. There is a note stating that the patient would like hyperbaric oxygen treatment. According to Dr. Wily Shen on 02/11/19 he states he does not feel that HBOT will improve or resolve his current infection. Patient left the hospital AMA. Upon continued evaluation during today's clinical visit, the patient is not interested in a below the knee amputation at this time, he is adamant about following up with his previous vascular surgeon and is scheduled for this upcoming week. He is traveling from about an hour and a half now and is currently residing in [place]. it is apparent that the patient is very claustrophobic it does not think he would be able to enter one of the chambers for treatment. He is been offloading with a cam walker boot as advised to take pressure off of the site. He is seeking a pain management clinic still. he was not able to make contact with the referral site last week still. He is with his friend today. Progress of Wound: Stable - Physical Exam Vital Signs Temp Pulse Resp BP 98 F 91 18 155/87 H 04/06/19 15:58 04/06/19 15:58 04/06/19 15:58 04/06/19 15:58 General: Alert, Oriented x3, Cooperative, No apparent distress HEENT: Atraumatic Extremities: Capillary Refill Less than 3 Seconds, Diminished Peripheral Pulses, Edema - Mild Skin: Ulcer/ Wound - No purulence, erythema, streaking, odor, infection. There are 2 skin discontinuity is to the distal lateral aspect of the right transmetatarsal amputation stump site that communicate and probe deep to deeper structures including bone. The skin is hairless and atrophic. There is no odor. Wound Measurements and Assessment WC - Nurse 1 - General Ulcer Measurement Start: 04/06/19 15:57 Freq: Status: Active Protocol: Activity Type Activity Date Activity User E-Sign Co-Sign Detail Recorded Client Recorded Date Recorded By Document 04/06/19 15:58 [id number] 04/06/19 16:02 RB 04/06/19 15:58 Wound Center Nurse 1 [Ulcer Assessment] #3 Right 4th Met Head -Combined with other wound No -Current Size (cm) - Length 0.4 -Current Size (cm) - Width 0.4 -Current Size (cm) - Depth 1 -Total Square Cm 0.16 -Tunneling No -Undermining/Tunneling No -Circular Undermining No -Exudate Amt Small -Exudate Type Purulent -Wound Margin Thickened & Rolled Under -Granulation Amt Medium (34-66%) -Granulation Quality Selfridge -Slough/Fibrin Yes -Necrosis Amt Small (1-33%) -Necrotic Tissue Type Adherent Slough -Structure Exposed N/A -Texture (Lawanda-wound Skin Appearance) Assessed -Moisture (Lawanda-wound Skin Appearance Assessed ) -Color (Lawanda-wound Skin Appearance) Assessed -Temperature (Lawanda-wound Skin No Abnormality Appearance) (Pt Warm) -Tenderness on Palpation (Lawanda-wound No Skin Appearance) -Ulcer Cleansing Wound Cleanser -Foul Odor after Cleansing No -Anesthetic Used 4% Lidocaine Solution #2 Right 5th Met Head -Combined with other wound No -Current Size (cm) - Length 0.6 -Current Size (cm) - Width 0.6 -Current Size (cm) - Depth 0.9 -Total Square Cm 0.36 -Tunneling No -Undermining/Tunneling No -Circular Undermining No -Exudate Amt Small -Exudate Type Purulent -Wound Margin Thickened & Rolled Under -Granulation Amt Medium (34-66%) -Granulation Quality Selfridge -Slough/Fibrin Yes -Necrosis Amt Small (1-33%) -Necrotic Tissue Type Adherent Slough -Structure Exposed N/A -Texture (Lawanda-wound Skin Appearance) Assessed -Moisture (Lawanda-wound Skin Appearance Assessed ) -Color (Lawanda-wound Skin Appearance) Assessed -Temperature (Lawanda-wound Skin No Abnormality Appearance) (Pt Warm) -Tenderness on Palpation (Lawanda-wound No Skin Appearance) -Ulcer Cleansing Wound Cleanser -Foul Odor after Cleansing No -Anesthetic Used 4% Lidocaine Solution #1 Right Foot Plantar -Combined with other wound No -Current Size (cm) - Length 0.5 -Current Size (cm) - Width 0.2 -Current Size (cm) - Depth 0.4 -Total Square Cm 0.10 -Tunneling No -Undermining/Tunneling No -Circular Undermining No -Exudate Amt Small -Exudate Type Serosanguineous -Wound Margin Thickened & Rolled Under -Granulation Amt Medium (34-66%) -Granulation Quality Selfridge -Slough/Fibrin Yes -Necrosis Amt Small (1-33%) -Necrotic Tissue Type Adherent Slough -Structure Exposed N/A -Texture (Lawanda-wound Skin Appearance) Assessed -Moisture (Lawanda-wound Skin Appearance Assessed ) -Color (Lawanda-wound Skin Appearance) Assessed -Temperature (Lawanda-wound Skin No Abnormality Appearance) (Pt Warm) -Tenderness on Palpation (Lawanda-wound No Skin Appearance) -Ulcer Cleansing Wound Cleanser -Foul Odor after Cleansing No -Anesthetic Used 4% Lidocaine Solution [Edema Assessment] -Lower Limb Edema Present Yes -Left Calf (cm) 37.8 -Left Ankle (cm) 23.8 WC - Nurse 2 - General Ulcer CM Notes Start: 04/06/19 15:57 Freq: Status: Active Protocol: Activity Type Activity Date Activity User E-Sign Co-Sign Detail Recorded Client Recorded Date Recorded By Document 04/06/19 16:17 MANUELA [id number] 04/06/19 16:20 JF 04/06/19 16:17 Wound Center Nurse 2 [Procedure/Treatment] #3 Right 4th Met Head -Time 16:18 -Correct Patient Yes -Correct Side, Site, Position Yes -Correct Procedure Yes -Procedure Performed Yes -Type of Procedure Debridement -Clinical Debridement Subcutaneous -Post Debridement Size (cm) - Length 0.5 -Post Debridement Size (cm) - Width 0.5 -Post Debridement Size (cm) - Depth 1.0 -Total Square Cm 0.25 -Wound/Ulcer Outcome Not Healed -Ulcer Cleansing Rinsed/ Irrigated with Saline -Foul Odor after Cleansing No -Bioengineered Tissue No -Bleeding Controlled with Pressure -Offloading Yes -Type of Offloading Camwalker -Treatment Response Procedure Tolerated Well #2 Right 5th Met Head -Time 16:18 -Correct Patient Yes -Correct Side, Site, Position Yes -Correct Procedure Yes -Procedure Performed Yes -Type of Procedure Debridement -Clinical Debridement Subcutaneous -Post Debridement Size (cm) - Length 0.7 -Post Debridement Size (cm) - Width 0.6 -Post Debridement Size (cm) - Depth 0.9 -Total Square Cm 0.42 -Wound/Ulcer Outcome Not Healed -Ulcer Cleansing Rinsed/ Irrigated with Saline -Foul Odor after Cleansing No -Bioengineered Tissue No -Bleeding Controlled with Pressure -Offloading Yes -Type of Offloading Camwalker -Treatment Response Procedure Tolerated Well #1 Right Foot Plantar -Time 16:18 -Correct Patient Yes -Correct Side, Site, Position Yes -Correct Procedure Yes -Procedure Performed Yes -Type of Procedure Debridement -Clinical Debridement Subcutaneous -Post Debridement Size (cm) - Length 0.5 -Post Debridement Size (cm) - Width 0.3 -Post Debridement Size (cm) - Depth 0.4 -Total Square Cm 0.15 -Wound/Ulcer Outcome Not Healed -Ulcer Cleansing Rinsed/ Irrigated with Saline -Foul Odor after Cleansing No -Bioengineered Tissue No -Bleeding Controlled with Pressure -Offloading Yes -Type of Offloading Camwalker -Treatment Response Procedure Tolerated Well [See Physician Procedure note for Specifics] Pain Scale: 0-10 Numeric [Pain] -Is Patient Pain Free? Yes Musculoskeletal: No Tenderness to Palpation of Joints or Extremities, Tenderness, - - Transmetatarsal amputation right lower extremity Neurological: - - Lack of normal epicritic sensation light touch is consistent with neuropathy Psych/Mental Status: Normal Affect, Appropriate Debridement Note Post-Debridement Measurements/Treatment WC - Nurse 2 - General Ulcer CM Notes Start: 04/06/19 15:57 Freq: Status: Active Protocol: Activity Type Activity Date Activity User E-Sign Co-Sign Detail Recorded Client Recorded Date Recorded By Document 04/06/19 16:17 MANUELA [id number] 04/06/19 16:20 MANUELA 04/06/19 16:17 Wound Center Nurse 2 #3 Right 4th Met Head -Time 16:18 -Correct Patient Yes -Correct Side, Site, Position Yes -Correct Procedure Yes -Procedure Performed Yes -Type of Procedure Debridement -Clinical Debridement Subcutaneous -Post Debridement Size (cm) - Length 0.5 -Post Debridement Size (cm) - Width 0.5 -Post Debridement Size (cm) - Depth 1.0 -Total Square Cm 0.25 -Wound/Ulcer Outcome Not Healed -Ulcer Cleansing Rinsed/ Irrigated with Saline -Foul Odor after Cleansing No -Bioengineered Tissue No -Bleeding Controlled with Pressure -Offloading Yes -Type of Offloading Camwalker -Treatment Response Procedure Tolerated Well #2 Right 5th Met Head -Time 16:18 -Correct Patient Yes -Correct Side, Site, Position Yes -Correct Procedure Yes -Procedure Performed Yes -Type of Procedure Debridement -Clinical Debridement Subcutaneous -Post Debridement Size (cm) - Length 0.7 -Post Debridement Size (cm) - Width 0.6 -Post Debridement Size (cm) - Depth 0.9 -Total Square Cm 0.42 -Wound/Ulcer Outcome Not Healed -Ulcer Cleansing Rinsed/ Irrigated with Saline -Foul Odor after Cleansing No -Bioengineered Tissue No -Bleeding Controlled with Pressure -Offloading Yes -Type of Offloading Camwalker -Treatment Response Procedure Tolerated Well #1 Right Foot Plantar -Time 16:18 -Correct Patient Yes -Correct Side, Site, Position Yes -Correct Procedure Yes -Procedure Performed Yes -Type of Procedure Debridement -Clinical Debridement Subcutaneous -Post Debridement Size (cm) - Length 0.5 -Post Debridement Size (cm) - Width 0.3 -Post Debridement Size (cm) - Depth 0.4 -Total Square Cm 0.15 -Wound/Ulcer Outcome Not Healed -Ulcer Cleansing Rinsed/ Irrigated with Saline -Foul Odor after Cleansing No -Bioengineered Tissue No -Bleeding Controlled with Pressure -Offloading Yes -Type of Offloading Camwalker -Treatment Response Procedure Tolerated Well Pain Scale: 0-10 Numeric Is Patient Pain Free? Yes Wound debrided: midfoot stump site Laterality: Right Wound Grade/Stage: grade 3 Type of Debridement: Excisional debridement Anesthesia Used: 5% Lidocaine Gel Depth: in the subcutaneous layer Percentage of wound debrided: 100 Instrument Used: #15 blade Tissue Removed: fibrous, devitalized subcutaneous, biofilm, slough Severity: Fat Layer Exposed Amount of bleeding with debridement: Mild Bleeding Controlled with: Pressure Patient tolerated procedure well Assessment/Plan Assessment: Right foot ulcer with fat layer exposed and recently treated infectious myositis and concern of osteomyelitis. Amputation right foot. Delayed healing. Malnutrition suspected. Uncontrolled diabetes with neuropathy, hemoglobin A1c of 9.2%. Multiple other comorbidities. Recent exacerbation of claustrophobia. Chronic pain Plan: I reviewed and discussed his case. Subcutaneous excisional debridement was performed today as noted in the clinical panel. He tolerated this well. He was advised to continue with daily dressing to the ulcer site now with a weight plain gauze to help perform a little bit of debridement each day due to the fibrinous moisture that has been collected and these ulcer sites. He was reassured no tatyana purulence was noted today though he reports thicker drainage has developed over the past week. As noted he is on antibiotics and he is advised to continue this. To monitor for development of local infection or systemic illness in which neither is noted today. Upon information obtained from medical records in combination with his clinical presentation, it is apparent he has a grade 3 ulcer. His updated foot x-ray report was reviewed which suggest remaining osteomyelitis at the amputation site. An imaging CD was obtained and reviewed. It is apparent he has had a prior transmetatarsal amputation and there is some hypertrophy noted at and near all remaining metatarsals with osseous prominence and also a remaining metatarsal head. We initially discussed the etiology of his ulcers and basics of comprehensive wound healing plan including proper offloading, diabetic control, need for serial debridements, infection management, vascular perfusion requirements, and nutritional supplementation. We also discussed advanced treatment such as additional foot surgeries and hyperbaric oxygen therapy. After reviewing the x-ray in his case I recommend a revisional transmetatarsal amputation. The preoperative indication, planned procedure, possible benefits, risks, complications, and anticipated healing time management were discussed in detail. No guarantees were made. He understands and elects to proceed with surgical scheduling at this time. He understands risks and complications include but are not limited to the following: Pain, swelling, scarring, need for further surgery, infection, blood clot, loss of limb, function, life, transfer lesion. He is not able to proceed with hyperbaric oxygen due to his recent claustrophobia. A pain management referral was provided for local location with Dr. Hanson and he was encouraged to get established now that he is residing in [place]. It is noted he is unable to make contact. I also try to call the patient last week and noted that his voicemail was full. I advised him to remove some of his voicemails so offices are able to appropriately contact him to help move forward with his treatment plans. To continue the use of a cam walker boot and to use an assistive device to keep pressure off of the site. A previous prescription for a cam walker boot with offloading dual density Plastizote liners were provided and he obtain this. I recommend improved glycemic control for any hemoglobin A1c over 7.5% is associated with a poor healing outcome for surgical and nonsurgical care. I recommend nutritional supplementation and a prescription was provided for Vinicius nutritional supplementation combination with a well balanced high-protein and high nutrient diet. Continue follow-up with his infectious disease specialist as advised. I reviewed his recent noninvasive vascular studies which demonstrated biphasic waveforms to the ankle level and an CRISTINA on the right side of 0.64 and left 0.86. This is consistent with vascular impairment and his prior intervention with his vascular surgeon is noted. He is scheduled to follow-up with him this Thursday including testing. We discussed at length the benefits and indications of hyperbaric oxygen therapy as an adjunctive treatment to the standard wound healing treatment components. He admits he is very claustrophobic and he is unable to anterior chamber for treatment time. We discussed potential sedation options and I do not recommend this at this time because he has to drive after each treatment session for he is traveling from out of state. He will consider this if his claustrophobia improves. If he elects to proceed, he understands he must have an ejection fraction over 40% and update his diagnostic data to ensure safety such as an EKG, chest x-ray, and CBC, and CMP. He understands he is at risk for continued limb loss and even from this complex condition. It is noted a below-knee amputation was recommended from another provider. We discussed potential foot surgeries including revisional transmetatarsal amputation amputation, soft tissue mobilization and debridement, application of advanced wound healing product such as amnio fill, and considerations for posterior lower leg lengthening procedures if appropriate. He would like to proceed forward with this and he was advised that the surgical asst will contact him. He understands a preoperative clearance, history and physical exam, and updated diagnostic data will be needed. 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 I recommend he follows up with the wound healing center next week or call sooner if he has any questions or concerns.
[2019-04-13 15:35] VITALS: BP 154/76; PULSE 90; RESP 18; TEMP 36.6; BMI 28.4
--- NOTE | 2019-04-13 16:24 | PN.PCM_ITS ---
(1) PVD (peripheral vascular disease) Status: Chronic Current Visit: Yes Code(s): I73.9 - Peripheral vascular disease, unspecified (2) Type 2 diabetes mellitus with diabetic polyneuropathy Status: Chronic Current Visit: Yes Code(s): E11.42 - Type 2 diabetes mellitus with diabetic polyneuropathy (3) Non-pressure chronic ulcer of other part of right foot with fat layer exposed Status: Chronic Current Visit: Yes Code(s): L97.512 - Non-pressure chronic ulcer of other part of right foot with fat layer exposed (4) Malnutrition Status: Chronic Current Visit: Yes Code(s): E46 - Unspecified protein- calorie malnutrition (5) Delayed wound healing Status: Chronic Current Visit: Yes Code(s): T14.8XXD - Other injury of unspecified body region, subsequent encounter (6) Chronic pain Status: Chronic Current Visit: Yes Code(s): G89.29 - Other chronic pain (7) Osteomyelitis of right foot Status: Suspected Current Visit: Yes Qualifiers: Osteomyelitis type: subacute Qualified Code(s): M86.271 - Subacute osteomyelitis, right ankle and foot Code(s): M86.9 - Osteomyelitis, unspecified Type of Wound Date of Service: 04/14/19 Chief Complaint: Right foot ulcers History of Wound: This 58-year-old male with multiple comorbidities was seen today for nonhealing right foot ulcers. His medical records from outside facilities and previous wound healing center provider were reviewed in detail with the following summary: 02/26/18 Left superficial femoral artery diffuse 70-75% disease. S/p RADIOLOGY SUPERVISOR using drug coated balloons. 03/15/18 MRI right foot- osteomyelitis involving the proximal and distal phalanx of the great toe with suspected septic arthritis. 03/18/19 Pathology: Right great toe amputation due to acute osteomyelitis. Resection margin appears to be viable and uninvolved. 07/27/18 xray right foot findings: The patient is post amputation of the first toe at the MTP joint. There is fragmentation and bony destruction of the remnant of the first metatarsal. There is bony destruction and pathological fracture through the second proximal phalanx. There is a slight step off the third metatarsal head suggesting an early area of fragmentation. The third and fourth digits are intact. There is lucency of the fifth metatarsal head which might represent subtle osteomyelitis although this is probably normal. Hindfoot and midfoot generally unremarkable. THere is soft tissue swelling and arterial calcification noted. Impression: areas of osteomyelitis as described above. 08/03/18 Pathology: 2nd, 34d, 4th, 5th toes right foot: four toes, three of which exhibit gangrene. Two of the toes show underlying acute osteomyelitis. The resected margins of all the toes are free of the acute osteomyelitis. The soft tissue resected margins are viable. 09/09/18 Echocardiogram Systolic LV function (EF 50%). Grade 1 diastolic dysfunction. Mild LV hypertrophy. Left atrium mildly dilated. 01/25/19 MRI right foot: Large deep ulceration/intact abscess with a tract extending to the tip of the remaining fourth metatarsal where findings of osteomyelitis are present. The bone edema extends to the proximal portion of the bone. There is induration or early ulceration also surrounding the first metatarsal distally. Underlying osteomyelitis cannot be excluded. He was recently hospitalized 02/09/19 at [facility] for bacterial abscess involving the right foot likely due to polymicrobial organism. The previous wound culture showed Enterobacter cloacae on 07/27/18. Right foot osteomyelitis which is again due to polymicrobial organism. CAD, DM, HTN, GERD, Arthritis, Renal insufficiency, Hiatal hernia , sleep apnea, COPD. He was treated with Zosyn and Vancomycin. They wanted to place a PICC line and give IV antibiotics for six weeks. The patient refused to stay and refused the PICC line. He is afraid the antibiotics would damage his kidneys and his CKD stage 2. He left the hospital against medical advice. There is a note stating that the patient would like hyperbaric oxygen treatment. According to Dr. Wily Shen on 02/11/19 he states he does not feel that HBOT will improve or resolve his current infection. Patient left the hospital AMA. Upon continued evaluation during today's clinical visit, the patient is not interested in a below the knee amputation at this time, he is adamant about following up with his previous vascular surgeon and obtain updated vascular studies this past Thursday in [facility]. He reports he thinks the test went well by do not review his formally with his physician. He uses a cam walker now as advised. He is unable to proceed forward with hyperbaric oxygen therapy due to recent claustrophobia development. He is still trying to find a local pain management clinic to address his chronic pain and gabapentin use. He is tentatively scheduled for revisional transmetatarsal amputation next 04/19/2019. He is in the current process of getting cleared. It is noted he is taking Plavix. Progress of Wound: Stable - Physical Exam Vital Signs Temp Pulse Resp BP 98 F 90 18 154/76 H 04/13/19 15:35 04/13/19 15:35 04/13/19 15:35 04/13/19 15:35 General: Alert, Oriented x3, Cooperative, No apparent distress HEENT: Atraumatic Extremities: No cyanosis, Capillary Refill Less than 3 Seconds, No Calf Tenderness, Diminished Peripheral Pulses, Peripheral Pulses Normal Skin: Ulcer/ Wound - No purulence, erythema, string, odor, infection or necrosis. There is deep probing to prior amputation stump site bones. His adjacent skin is hairless and atrophic Wound Measurements and Assessment WC - Nurse 1 - General Ulcer Measurement Start: 04/06/19 15:57 Freq: Status: Active Protocol: Activity Type Activity Date Activity User E-Sign Co-Sign Detail Recorded Client Recorded Date Recorded By Document 04/13/19 15:35 RB [id number] 04/13/19 15:48 RB 04/13/19 15:35 Wound Center Nurse 1 [Ulcer Assessment] #3 Right 4th Met Head -Combined with other wound No -Current Size (cm) - Length 0.2 -Current Size (cm) - Width 0.4 -Current Size (cm) - Depth 0.5 -Total Square Cm 0.08 -Tunneling No -Undermining/Tunneling No -Circular Undermining No -Exudate Amt Small -Exudate Type Serosanguineous -Wound Margin Thickened -Granulation Amt Medium (34-66%) -Granulation Quality [place] -Slough/Fibrin Yes -Necrosis Amt Small (1-33%) -Necrotic Tissue Type Adherent Slough -Structure Exposed N/A -Texture (Lawanda-wound Skin Appearance) Assessed,Callus -Moisture (Lawanda-wound Skin Appearance Assessed ) -Color (Lawanda-wound Skin Appearance) Assessed -Temperature (Lawanda-wound Skin No Abnormality Appearance) (Pt Warm) -Tenderness on Palpation (Lawanda-wound No Skin Appearance) -Ulcer Cleansing Wound Cleanser -Foul Odor after Cleansing No -Anesthetic Used 5% Lidocaine Gel #2 Right 5th Met Head -Combined with other wound No -Current Size (cm) - Length 0.5 -Current Size (cm) - Width 0.5 -Current Size (cm) - Depth 1.5 -Total Square Cm 0.25 -Tunneling No -Undermining/Tunneling No -Circular Undermining No -Exudate Amt Small -Exudate Type Serosanguineous -Wound Margin Thickened -Granulation Amt Medium (34-66%) -Granulation Quality [place] -Necrotic Tissue Type Adherent Slough -Structure Exposed N/A -Texture (Lawanda-wound Skin Appearance) Assessed,Callus -Moisture (Lawanda-wound Skin Appearance Assessed ) -Color (Lawanda-wound Skin Appearance) Assessed -Temperature (Lawanda-wound Skin No Abnormality Appearance) (Pt Warm) -Tenderness on Palpation (Lawanda-wound No Skin Appearance) -Ulcer Cleansing Wound Cleanser -Foul Odor after Cleansing No -Anesthetic Used 5% Lidocaine Gel #1 Right Foot Plantar -Combined with other wound No -Current Size (cm) - Length 0.1 -Current Size (cm) - Width 0.1 -Current Size (cm) - Depth 0.1 -Total Square Cm 0.01 -Tunneling No -Undermining/Tunneling No -Circular Undermining No -Exudate Amt None Present -Wound Margin Thickened -Granulation Amt Medium (34-66%) -Granulation Quality [place] -Slough/Fibrin Yes -Necrosis Amt Small (1-33%) -Necrotic Tissue Type Adherent Slough -Structure Exposed N/A -Texture (Lawanda-wound Skin Appearance) Assessed,Callus -Moisture (Lawanda-wound Skin Appearance Assessed ) -Color (Lawanda-wound Skin Appearance) Assessed -Temperature (Lawanda-wound Skin No Abnormality Appearance) (Pt Warm) -Tenderness on Palpation (Lawanda-wound No Skin Appearance) -Ulcer Cleansing Wound Cleanser -Foul Odor after Cleansing No -Anesthetic Used 5% Lidocaine Gel [Edema Assessment] -Lower Limb Edema Present Yes -Right Calf (cm) 37.5 -Right Ankle (cm) 23.5 WC - Nurse 2 - General Ulcer CM Notes Start: 04/06/19 15:57 Freq: Status: Active Protocol: Activity Type Activity Date Activity User E-Sign Co-Sign Detail Recorded Client Recorded Date Recorded By Document 04/13/19 15:57 MANUELA [id number] 04/13/19 15:58 MANUELA 04/13/19 15:57 Wound Center Nurse 2 [Procedure/Treatment] #3 Right 4th Met Head -Time 15:57 -Correct Patient Yes -Correct Side, Site, Position Yes -Correct Procedure Yes -Procedure Performed Yes -Type of Procedure Debridement -Clinical Debridement Subcutaneous -Post Debridement Size (cm) - Length 0.3 -Post Debridement Size (cm) - Width 0.4 -Post Debridement Size (cm) - Depth 0.5 -Total Square Cm 0.12 -Wound/Ulcer Outcome Not Healed -Ulcer Cleansing Rinsed/ Irrigated with Saline -Foul Odor after Cleansing No -Bioengineered Tissue No -Bleeding Controlled with Pressure -Offloading Yes -Type of Offloading Camwalker -Treatment Response Procedure Tolerated Well #2 Right 5th Met Head -Time 15:58 -Correct Patient Yes -Correct Side, Site, Position Yes -Correct Procedure Yes -Procedure Performed Yes -Type of Procedure Debridement -Clinical Debridement Subcutaneous -Post Debridement Size (cm) - Length 0.5 -Post Debridement Size (cm) - Width 0.5 -Post Debridement Size (cm) - Depth 1.5 -Total Square Cm 0.25 -Wound/Ulcer Outcome Not Healed -Ulcer Cleansing Rinsed/ Irrigated with Saline -Foul Odor after Cleansing No -Bioengineered Tissue No -Bleeding Controlled with Pressure -Offloading Yes -Type of Offloading Camwalker -Treatment Response Procedure Tolerated Well #1 Right Foot Plantar -Correct Patient No -Correct Side, Site, Position No -Correct Procedure No -Procedure Performed No -Post Debridement Size (cm) - Length 0 -Post Debridement Size (cm) - Width 0 -Post Debridement Size (cm) - Depth 0 -Total Square Cm 0 -Wound/Ulcer Outcome Healed- Epithelialized [See Physician Procedure note for Specifics] Pain Scale: 0-10 Numeric [Pain] -Is Patient Pain Free? Yes Musculoskeletal: No Tenderness to Palpation of Joints or Extremities, Muscle Wasting Neurological: - - Lack of normal but her sensation light touch is consistent with neuropathy Debridement Note Post-Debridement Measurements/Treatment WC - Nurse 2 - General Ulcer CM Notes Start: 04/06/19 15:57 Freq: Status: Active Protocol: Activity Type Activity Date Activity User E-Sign Co-Sign Detail Recorded Client Recorded Date Recorded By Document 04/06/19 16:17 [id number] 04/06/19 16:20 Document 04/13/19 15:57 [id number] 04/13/19 15:58 04/06/19 04/13/19 16:17 15:57 Wound Center Nurse 2 #3 Right 4th [facility] Head -Time 16:18 15:57 -Correct Patient Yes Yes -Correct Side, Site, Position Yes Yes -Correct Procedure Yes Yes -Procedure Performed Yes Yes -Type of Procedure Debridement Debridement -Clinical Debridement Subcutaneous Subcutaneous -Post Debridement Size (cm) - Length 0.5 0.3 -Post Debridement Size (cm) - Width 0.5 0.4 -Post Debridement Size (cm) - Depth 1.0 0.5 -Total Square Cm 0.25 0.12 -Wound/Ulcer Outcome Not Healed Not Healed -Ulcer Cleansing Rinsed/ Rinsed/ Irrigated with Irrigated with Saline Saline -Foul Odor after Cleansing No No -Bioengineered Tissue No No -Bleeding Controlled with Pressure Pressure -Offloading Yes Yes -Type of Offloading Camwalker Camwalker -Treatment Response Procedure Procedure Tolerated Well Tolerated Well #2 Right 5th [facility] Head -Time 16:18 15:58 -Correct Patient Yes Yes -Correct Side, Site, Position Yes Yes -Correct Procedure Yes Yes -Procedure Performed Yes Yes -Type of Procedure Debridement Debridement -Clinical Debridement Subcutaneous Subcutaneous -Post Debridement Size (cm) - Length 0.7 0.5 -Post Debridement Size (cm) - Width 0.6 0.5 -Post Debridement Size (cm) - Depth 0.9 1.5 -Total Square Cm 0.42 0.25 -Wound/Ulcer Outcome Not Healed Not Healed -Ulcer Cleansing Rinsed/ Rinsed/ Irrigated with Irrigated with Saline Saline -Foul Odor after Cleansing No No -Bioengineered Tissue No No -Bleeding Controlled with Pressure Pressure -Offloading Yes Yes -Type of Offloading Camwalker Camwalker -Treatment Response Procedure Procedure Tolerated Well Tolerated Well #1 Right Foot Plantar -Time 16:18 -Correct Patient Yes No -Correct Side, Site, Position Yes No -Correct Procedure Yes No -Procedure Performed Yes No -Type of Procedure Debridement -Clinical Debridement Subcutaneous -Post Debridement Size (cm) - Length 0.5 0 -Post Debridement Size (cm) - Width 0.3 0 -Post Debridement Size (cm) - Depth 0.4 0 -Total Square Cm 0.15 0 -Wound/Ulcer Outcome Not Healed Healed- Epithelialized -Ulcer Cleansing Rinsed/ Irrigated with Saline -Foul Odor after Cleansing No -Bioengineered Tissue No -Bleeding Controlled with Pressure -Offloading Yes -Type of Offloading Camwalker -Treatment Response Procedure Tolerated Well Pain Scale: 0-10 Numeric Is Patient Pain Free? Yes Yes Wound debrided: 4 and 5 metatarsal head areas Laterality: Right Wound Grade/Stage: grade 3 Type of Debridement: Excisional debridement Anesthesia Used: 5% Lidocaine Gel Depth: in the subcutaneous layer Percentage of wound debrided: 100 Instrument Used: #15 blade Tissue Removed: fibrous, devitalized subcutaneous, biofilm, slough Severity: Fat Layer Exposed Amount of bleeding with debridement: Mild Bleeding Controlled with: Pressure Patient tolerated procedure well Assessment/Plan Active Problems PVD (peripheral vascular disease) (Chronic) Type 2 diabetes mellitus with diabetic polyneuropathy (Chronic) Non-pressure chronic ulcer of other part of right foot with fat layer exposed (Chronic) Malnutrition (Chronic) Delayed wound healing (Chronic) Chronic pain (Chronic) Assessment: Right foot ulcer with fat layer exposed and recently treated infectious myositis and concern of osteomyelitis. Amputation right foot. Delayed healing. Malnutrition suspected. Uncontrolled diabetes with neuropathy, hemoglobin A1c of 9.2%. Multiple other comorbidities. Recent exacerbation of claustrophobia. Chronic pain Plan: I reviewed and discussed his case. Subcutaneous excisional debridement was performed today as noted in the clinical panel. He tolerated this well. He was advised to continue with daily dressing to the ulcer site now with a weight plain gauze to help perform a little bit of debridement each day due to the fibrinous moisture that has been collected and these ulcer sites. He was reassured no tatyana purulence was noted today. To monitor for development of local infection or systemic illness in which neither is noted today. Upon information obtained from medical records in combination with his clinical presentation, it is apparent he has a grade 3 ulcer. His updated foot x-ray report was reviewed which suggest remaining osteomyelitis at the amputation site. An imaging CD was obtained and reviewed. It is apparent he has had a prior transmetatarsal amputation and there is some hypertrophy noted at and near all remaining metatarsals with osseous prominence and also a remaining metatarsal head. We initially discussed the etiology of his ulcers and basics of comprehensive wound healing plan including proper offloading, diabetic control, need for serial debridements, infection management, vascular perfusion requirements, and nutritional supplementation. We also discussed advanced treatment such as additional foot surgeries and hyperbaric oxygen therapy. After reviewing the x-ray in his case I recommend a revisional transmetatarsal amputation. The preoperative indication, planned procedure, possible benefits, risks, complications, and anticipated healing time management were discussed in detail. No guarantees were made. He understands and elects to proceed with surgical scheduling at this time. He understands risks and complications include but are not limited to the following: Pain, swelling, scarring, need for further surgery, infection, blood clot, loss of limb, function, life, transfer lesion. He is not able to proceed with hyperbaric oxygen due to his recent claustrophobia. A pain management referral was provided for local location with Dr. Hanson and he was encouraged to get established now that he is residing in [place]. It is noted he is unable to make contact. Informed surgical consents were signed today. I answered his questions. He understands I will need to confirm medical clearance for the procedure, review his history and physical exam, and also confirm if it is safe to proceed with temporary cessation of anticoagulation medication and according to his updated vascular studies that he had performed on Thursday. He provided the name of his physician in [facility] and he will be contacted. It is noted his surgery is tentatively scheduled for 04/19/2019 at [facility]. This is an anticipated MAC and local anesthesia case and may be performed on an outpatient basis. Hospital admission will be considered pending pain control and hemostasis control during the procedure. To continue the use of a cam walker boot and to use an assistive device to keep pressure off of the site. A previous prescription for a cam walker boot with offloading dual density Plastizote liners were provided and he obtain this. I recommend improved glycemic control for any hemoglobin A1c over 7.5% is associated with a poor healing outcome for surgical and nonsurgical care. I recommend nutritional supplementation and a prescription was provided for Vinicius nutritional supplementation combination with a well balanced high-protein and high nutrient diet. Continue follow-up with his infectious disease specialist as advised. I reviewed his recent noninvasive vascular studies which demonstrated biphasic waveforms to the ankle level and an CRISTINA on the right side of 0.64 and left 0.86. This is consistent with vascular impairment and his prior intervention with his vascular surgeon is n otmoraima. He is scheduled to follow-up with him this Saturday including testing. We discussed at length the benefits and indications of hyperbaric oxygen therapy as an adjunctive treatment to the standard wound healing treatment components. He admits he is very claustrophobic and he is unable to anterior chamber for treatment time. We discussed potential sedation options and I do not recommend this at this time because he has to drive after each treatment session for he is traveling from out of [place]. He will consider this if his claustrophobia improves. If he elects to proceed, he understands he must have an ejection fraction over 40% and update his diagnostic data to ensure safety such as an EKG, chest x-ray, and CBC, and CMP. He understands he is at risk for continued limb loss and even from this complex condition. It is noted a below-knee amputation was recommended from another provider. We discussed potential foot surgeries including revisional transmetatarsal amputation amputation, soft tissue mobilization and debridement, application of advanced wound healing product such as amnio fill, and considerations for posterior lower leg lengthening procedures if appropriate. He would like to proceed forward with this and he was advised that the surgical nurse practitioner will contact him. He understands a preoperative clearance, history and physical exam, and updated di agnostic data will be needed. 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 I recommend he follows up with the wound healing center next week or call sooner if he has any questions or concerns.
[2019-05-03 14:56] VITALS: BP 135/73; PULSE 89; RESP 18; TEMP 37; BMI 28.4
--- NOTE | 2019-05-03 14:58 | WC ---
pt right trans met incision well aprroxiated sutures intact
--- NOTE | 2019-05-03 16:10 | RAD_ITS ---
STUDY: X-RAY - RIGHT FOOT CLINICAL: Male, 58 years old. RIGHT FOOT INFECTION. PT HAS HAD MULTIPLE FOOT SURGERIES. LATEST SURGERY 04/20/19. TECHNIQUE: 3 view(s) of the foot. COMPARISON: Prior study of 04/20/2019 FINDINGS: Normal talus, calcaneus, and tarsal bones. Normal visualized subtalar, talonavicular, calcaneocuboid, tarsal and tarsometatarsal articulations. There are status post resection changes through the proximal shafts of the first through fifth metatarsals. There is no evidence of soft tissue gas . RAD/Foot min 3 Views IMPRESSION: Status post surgical resection changes through the proximal shafts of the first through fifth metatarsals. There is no evidence of osteomyelitis or soft tissue gas. Electronically Signed: Isaiah Neville MD at 17:01 EST , Service support ,
[2019-05-03 16:14] LABS: Absolute Lymphocyte Count 1.78 X10^3/uL (0.83-4.51); Absolute Neutrophil Count 6.5 X10^3/uL (2.0-7.7); Basophil# 0.07 X10^3/uL; Basophil% 0.8 % (0-1); Eosinophil# 0.28 X10^3/uL; Hemoglobin 9.2 g/dL (13.0-16.5); Lymphocyte # 1.78 X10^3/ul (4.0); Lymphocyte % 19.1 % (19-41); Mean Corp Hgb Conc 30.7 g/dL (32-36); Mean Corpuscular Hgb 28.6 pg (27.0-32.0); Mean Corpuscular Volume 93.2 fL (80-94); Monocyte% 7.5 % (0-10); NRBC Flagged by Analyzer 0 % (0-5); Neutrophil # 6.47 X10^3/uL (2.7-7.7); Neutrophil % 69.4 % (47-70); Platelet Count 361 K/mm3 (150-450); RBC Distribution Width CV 14.7 % (11.6-14.6); RBC Distribution Width SD 50.4 fl (35.1-43.9); Red Blood Count 3.22 M/mm3 (4.6-6.2); White Blood Count 9.3 K/mm3 (4.4-11.0)
--- NOTE | 2019-05-03 16:23 | PN.PCM_ITS ---
(1) Cellulitis of right lower limb Status: Acute Current Visit: Yes Code(s): L03.115 - Cellulitis of right lower limb (2) PVD (peripheral vascular disease) Status: Chronic Current Visit: Yes Code(s): I73.9 - Peripheral vascular disease, unspecified (3) Type 2 diabetes mellitus with diabetic polyneuropathy Status: Chronic Current Visit: Yes Code(s): E11.42 - Type 2 diabetes mellitus with diabetic polyneuropathy (4) Non-pressure chronic ulcer of other part of right foot with fat layer exposed Status: Chronic Current Visit: Yes Code(s): L97.512 - Non-pressure chronic ulcer of other part of right foot with fat layer exposed (5) Malnutrition Status: Chronic Current Visit: Yes Code(s): E46 - Unspecified protein- calorie malnutrition (6) Delayed wound healing Status: Chronic Current Visit: Yes Code(s): T14.8XXD - Other injury of unspecified body region, subsequent encounter (7) Chronic pain Status: Chronic Current Visit: Yes Code(s): G89.29 - Other chronic pain (8) Osteomyelitis of right foot Status: Suspected Current Visit: Yes Qualifiers: Osteomyelitis type: subacute Qualified Code(s): M86.271 - Subacute osteomyelitis, right ankle and foot Code(s): M86.9 - Osteomyelitis, unspecified Type of Wound Date of Service: 05/03/19 Chief Complaint: Right foot ulcers History of Wound: This 58-year-old male with multiple comorbidities was seen today for right status post transmetatarsal amputation secondary to chronic nonhealing wounds with underlying subacute osteomyelitis. This was performed on April 20, 2019 at [facility]. He is kept his dressing and splint clean dry and intact as advised. He is maintain a nonweightbearing status by using the roller. There is a notable odor in his family or friend noticed that this starting yesterday only. The patient does not appreciate any odor. He denies fever, chill, nausea, vomiting, loss of appetite. Progress of Wound: Stable in appearance. New odor is noted - Physical Exam Vital Signs Temp Pulse Resp BP 98.6 F 89 18 135/73 H 05/03/19 14:56 05/03/19 14:56 05/03/19 14:56 05/03/19 14:56 General: Alert, Oriented x3, Cooperative, No apparent distress HEENT: Atraumatic Extremities: No cyanosis, Capillary Refill Less than 3 Seconds, No Calf Tenderness - Negative Jenny and Weaver right, Diminished Peripheral Pulses, Edema - Mild right, - - Rectus right lower extremity with transmetatarsal amputation revision noted Skin: Incision - Well aligned and coapted with sutures intact no tatyana streaking erythema or purulence on expression. There is some fibrinous and serosanguineous drainage noted with an odor without additional drainage noted upon suture removal and saline irrigation to the lateral aspect. The skin is atrophic and hairless. There is no maceration Wound Measurements and Assessment - Nurse 1 - General Ulcer Measurement Start: 04/06/19 15:57 Freq: Status: Active Protocol: Activity Type Activity Date Activity User E-Sign Co-Sign Detail Recorded Client Recorded Date Recorded By Document 05/03/19 14:56 RB [id number] 05/03/19 15:03 RB 05/03/19 14:56 Wound Center Nurse 1 [Ulcer Assessment] 4. R foot trans met (post-op) -Photo Taken Yes -Exudate Amt Medium -Exudate Type Serosanguineous -Texture (Lawanda-wound Skin Appearance) Assessed -Moisture (Lawanda-wound Skin Appearance Assessed ) -Color (Lawanda-wound Skin Appearance) Erythema -Temperature (Lawanda-wound Skin No Abnormality Appearance) (Pt Warm) -Tenderness on Palpation (Lawanda-wound No Skin Appearance) -Ulcer Cleansing Wound Cleanser 05/03/19 14:58 Wound Center by Laura Irwin pt right trans met incision well aprroxiated sutures intact Initialized on 05/03/19 14:58 - END OF NOTE - Nurse 2 - General Ulcer CM Notes Start: 04/06/19 15:57 Freq: Status: Active Protocol: Activity Type Activity Date Activity User E-Sign Co-Sign Detail Recorded Client Recorded Date Recorded By Document 05/03/19 15:13 MANUELA [id number] 05/03/19 15:15 MANUELA 05/03/19 15:13 Wound Center Nurse 2 [Procedure/Treatment] -Correct Patient No -Correct Side, Site, Position No -Correct Procedure No -Procedure Performed No -Wound/Ulcer Outcome Not Healed [See Physician Procedure note for Specifics] Pain Scale: 0-10 Numeric [Pain] -Is Patient Pain Free? Yes Musculoskeletal: No Tenderness to Palpation of Joints or Extremities, Muscle Wasting, - - No bogginess or fluctuance on palpation. Compartments to the right lower extremity remain soft to palpate Neurological: - - Epicritic sensation is diminished to light touch consistent with neuropathy status right lower extremity Psych/Mental Status: Normal Affect, Appropriate Debridement Note Post-Debridement Measurements/Treatment WC - Nurse 2 - General Ulcer CM Notes Start: 04/06/19 15:57 Freq: Status: Active Protocol: Activity Type Activity Date Activity User E-Sign Co-Sign Detail Recorded Client Recorded Date Recorded By Document 04/06/19 16:17 [id number] 04/06/19 16:20 Document 04/13/19 15:57 [id number] 04/13/19 15:58 Document 05/03/19 15:13 [id number] 05/03/19 15:15 04/06/19 04/13/19 05/03/19 16:17 15:57 15:13 Wound Center Nurse 2 4. R foot trans met (post-op) -Correct Patient No -Correct Side, Site, Position No -Correct Procedure No -Procedure Performed No -Wound/Ulcer Outcome Not Healed #3 Right 4th Met Head -Time 16:18 15:57 -Correct Patient Yes Yes -Correct Side, Site, Position Yes Yes -Correct Procedure Yes Yes -Procedure Performed Yes Yes -Type of Procedure Debridement Debridement -Clinical Debridement Subcutaneous Subcutaneous -Post Debridement Size (cm) - Length 0.5 0.3 -Post Debridement Size (cm) - Width 0.5 0.4 -Post Debridement Size (cm) - Depth 1.0 0.5 -Total Square Cm 0.25 0.12 -Wound/Ulcer Outcome Not Healed Not Healed -Ulcer Cleansing Rinsed/ Rinsed/ Irrigated with Irrigated with Saline Saline -Foul Odor after Cleansing No No -Bioengineered Tissue No No -Bleeding Controlled with Pressure Pressure -Offloading Yes Yes -Type of Offloading Camwalker Camwalker -Treatment Response Procedure Procedure Tolerated Well Tolerated Well #2 Right 5th Met Head -Time 16:18 15:58 -Correct Patient Yes Yes -Correct Side, Site, Position Yes Yes -Correct Procedure Yes Yes -Procedure Performed Yes Yes -Type of Procedure Debridement Debridement -Clinical Debridement Subcutaneous Subcutaneous -Post Debridement Size (cm) - Length 0.7 0.5 -Post Debridement Size (cm) - Width 0.6 0.5 -Post Debridement Size (cm) - Depth 0.9 1.5 -Total Square Cm 0.42 0.25 -Wound/Ulcer Outcome Not Healed Not Healed -Ulcer Cleansing Rinsed/ Rinsed/ Irrigated with Irrigated with Saline Saline -Foul Odor after Cleansing No No -Bioengineered Tissue No No -Bleeding Controlled with Pressure Pressure -Offloading Yes Yes -Type of Offloading Camwalker Camwalker -Treatment Response Procedure Procedure Tolerated Well Tolerated Well #1 Right Foot Plantar -Time 16:18 -Correct Patient Yes No -Correct Side, Site, Position Yes No -Correct Procedure Yes No -Procedure Performed Yes No -Type of Procedure Debridement -Clinical Debridement Subcutaneous -Post Debridement Size (cm) - Length 0.5 0 -Post Debridement Size (cm) - Width 0.3 0 -Post Debridement Size (cm) - Depth 0.4 0 -Total Square Cm 0.15 0 -Wound/Ulcer Outcome Not Healed Healed- Epithelialized -Ulcer Cleansing Rinsed/ Irrigated with Saline -Foul Odor after Cleansing No -Bioengineered Tissue No -Bleeding Controlled with Pressure -Offloading Yes -Type of Offloading Camwalker -Treatment Response Procedure Tolerated Well Pain Scale: 0-10 Numeric Is Patient Pain Free? Yes Yes Yes No debridement was completed today - 3 sutures removed and this was irrigated with normal saline at the lateral aspect and central of the amputation Assessment/Plan Active Problems Cellulitis of right lower limb (Acute) PVD (peripheral vascular disease) (Chronic) Type 2 diabetes mellitus with diabetic polyneuropathy (Chronic) Non-pressure chronic ulcer of other part of right foot with fat layer exposed (Chronic) Malnutrition (Chronic) Delayed wound healing (Chronic) Chronic pain (Chronic) Assessment: Status post revisional right transmetatarsal amputation secondary to right foot ulcer with fat layer exposed and recently treated infectious myositis and concern of osteomyelitis. New concern of right foot infection, cellulitis, osteomyelitis development due to notable odor. Transmetatarsal amputation right foot. Delayed healing. Malnutrition suspected. Uncontrolled diabetes with neuropathy, hemoglobin A1c of 9.2%. Multiple other comorbidities. Recent exacerbation of claustrophobia. Chronic pain Plan: I reviewed and discussed his case. The patient feels well and there are lack of systemic review local signs of infection except there is a distinguishable odor noted. Some of the lateral sutures are removed and questionable drainage was expressed from the wound and this extended to an area of less than 2 cc around the open site. This was copiously irrigated with normal saline he tolerated this well. Deep aerobic and anaerobic and MRSA PCR wound cultures were obtained. I recommend updating his labs including CBC CMP, ESR, and C-reactive protein. I recommend updating his x-rays of his right foot promptly and order was provided. I also advised him to go on antibiotics. His clearance fragment from surgery demonstrated corynebacterium stratum and porphymoras gingivalis. The clearance of bone fragments that was sent to pathology was negative for acute osteomyelitis. Recommend he follows up promptly with infectious disease. He had trouble coordinating this via phone as urgent advised to do so last week. Her office has also previously sent referrals and try to help him set this up. I will put him on an antibiotic at this time including Augmentin and ciprofloxacin. He was advised to continue with daily dressing to the ulcer site now with a weight plain gauze to help perform a little bit of debridement each day due to the fibrinous moisture that has been collected and these ulcer sites. To monitor for worsening status change from an infection standpoint; he understands. To properly control glycemic index. It is noted his last hemoglobin A1c was 7.3% and his last gl obular filtration rate was 56. I recommended hyperbaric oxygen therapy and he is still not amenable due to claustrophobia development. To proceed with temporary cessation of anticoagulation medication. His recent vascular surgery testing is noted that occurred prior to his most recent surgery and no additional intervention was recommended. He has suspected perfusion available to allow healing. I reviewed this case via phone with his vascular surgeon prior to his foot surgery. To continue the use of a well-padded posterior mold and assistive device to keep pressure off of the site. This was reapplied today. I recommend improved glycemic control for any hemoglobin A1c over 7.5% is associated with a poor healing outcome for surgical and nonsurgical care. I recommend nutritional supplementation and a prescription was provided for Vinicius nutritional supplementation combination with a well balanced high-protein and high nutrient diet. Continue follow-up with his infectious disease specialist as advised. I reviewed his recent noninvasive vascular studies which demonstrated biphasic waveforms to the ankle level and an CRISTINA on the right side of 0.64 and left 0.86. This is consistent with vascular impairment and his prior intervention with his vascular surgeon is noted. He is scheduled to follow-up with him this Thursday including testing. We discussed at length the benefits and indications of hyperbaric oxygen therapy as an adjunctive treatment to the standard wound healing treatment components. He understands he is at risk for continued limb loss and even from this complex condition. It is noted a below-knee amputation was recommended from another provider. We discussed potential foot surgeries including revisional transmetatarsal amputation amputation, soft tissue mobilization and debridement, application of advanced wound healing product such as amnio fill, and considerations for posterior lower leg lengthening procedures if appropriate. He would like to proceed forward with this and he was advised that the flight operations coordinator will contact him. I recommend he follows up with the wound healing center next week or call sooner if he has any questions or concerns. I will monitor his culture, x-ray, and lab results I will call him to confirm if he has a change in treatment plan.
[2019-05-03 16:44] LABS: Erythrocyte Sedimentation Rate 67 mm/hr (0-20)
[2019-05-03 17:01] LABS: ALB/GLOB Ratio 0.6 RATIO (0.9-2.4); AST(SGOT) 25 U/L (15-37); Alanine Aminotransfer ALT/SGPT 24 U/L (16-61); Albumin, Serum 2.5 g/dL (3.2-5.0); Alkaline Phosphatase 103 U/L (45-117); Anion Gap 3 (5-15); BUN 31 mg/dL (7-18); BUN/Creat Ratio 22.6 RATIO (10-20); Calcium,Total 8.4 mg/dL (8.5-10.1); Chloride 109 mmol/L (98-107); Creatinine, Serum 1.37 mg/dL (0.70-1.30); EST Glomerular Filtration Rate 56 mL/min (>60); Est Glom Filt Rate - Afr Amer 68 mL/min (>60); Estimated Creatinine Clearance 59.21 ml/min; Globulin 4.3 g/dL (2.2-4.2); Glucose 131 mg/dL (74-106); Potassium 4.5 mmol/L (3.5-5.1); Protein, Total 6.8 g/dL (6.4-8.2); Sodium Level 140 mmol/L (136-145)
[2019-05-03 18:37] LABS: M R Staph aureus DNA By PCR Negative (Negative); Probe Check PASS; Specimen Processing Control PASS; Staph aureus DNA By PCR NEGATIVE (Negative)
== END 2019-05-03 23:59 ==
LOC: WC 15:00
PROVIDERS: Referring Provider Nurse Practitioner Family; Visit Provider Nurse Practitioner Family
DX: E11.621 Type 2 diabetes mellitus with foot ulcer (principal); E11.51 Type 2 diabetes mellitus with diabetic peripheral angiopathy without gangrene; L97.412 Non-pressure chronic ulcer of right heel and midfoot with fat layer exposed; E11.69 Type 2 diabetes mellitus with other specified complication; M86.271 Subacute osteomyelitis, right ankle and foot; I25.10 Atherosclerotic heart disease of native coronary artery without angina pectoris; K21.9 Gastro-esophageal reflux disease without esophagitis; M19.90 Unspecified osteoarthritis, unspecified site; I12.9 Hypertensive chronic kidney disease with stage 1 through stage 4 chronic kidney disease, or unspecified chronic kidney disease; E11.22 Type 2 diabetes mellitus with diabetic chronic kidney disease; N18.2 Chronic kidney disease, stage 2 (mild); J44.9 Chronic obstructive pulmonary disease, unspecified; E11.65 Type 2 diabetes mellitus with hyperglycemia; E11.40 Type 2 diabetes mellitus with diabetic neuropathy, unspecified; Z79.02 Long term (current) use of antithrombotics/antiplatelets; G89.29 Other chronic pain
CPT/HCPCS: 11042; 36415; 73630; 80053; 85025; 85652; 86140; 87070; 87075; 87076; 87186; 87205; 87640; 99213; G0463

== ENCOUNTER 2019-05-25 13:30 | Outpatient (RCR) | payer MEDICARE, SELFPAY ==
[2019-05-04 00:47] VITALS: BP 135/73; PULSE 89; RESP 18; TEMP 37; BMI 27.8
[2019-05-11 14:23] VITALS: BP 117/62; PULSE 98; RESP 18; TEMP 36.6; BMI 27.8
--- NOTE | 2019-05-11 15:01 | PN.PCM_ITS ---
(1) Non-pressure chronic ulcer of other part of right foot with fat layer exposed Status: Chronic Current Visit: Yes Code(s): L97.512 - Non-pressure chronic ulcer of other part of right foot with fat layer exposed (2) Smoker Status: Chronic Current Visit: Yes Code(s): F17.200 - Nicotine dependence, unspecified, uncomplicated (3) PVD (peripheral vascular disease) Status: Chronic Current Visit: Yes Code(s): I73.9 - Peripheral vascular disease, unspecified (4) Type 2 diabetes mellitus with diabetic polyneuropathy Status: Chronic Current Visit: Yes Code(s): E11.42 - Type 2 diabetes mellitus with diabetic polyneuropathy (5) Amputation at midfoot Status: Chronic Current Visit: Yes Qualifiers: Code(s): S98.319A - Complete traumatic amputation of unspecified midfoot, initial encounter (6) Malnutrition Status: Chronic Current Visit: Yes Code(s): E46 - Unspecified protein- calorie malnutrition (7) Delayed wound healing Status: Chronic Current Visit: Yes Code(s): T14.8XXD - Other injury of unspecified body region, subsequent encounter (8) CKD stage 3 due to type 2 diabetes mellitus Status: Chronic Current Visit: Yes Code(s): E11.22 - Type 2 diabetes mellitus with diabetic chronic kidney disease; N18.3 - Chronic kidney disease, stage 3 (moderate) Type of Wound Date of Service: 05/11/19 Chief Complaint: Right foot ulcers History of Wound: This 58-year-old male with multiple comorbidities was seen today for right status post transmetatarsal amputation secondary to chronic nonhealing wounds with underlying subacute osteomyelitis. This was performed on April 20, 2019 at [facility]. He is kept his dressing and splint clean dry and intact as advised. He is maintain a nonweightbearing status by using the roller and posterior mold splint. He denies fever, chill, nausea, vomiting, loss of appetite, or diarrhea. He denies chest pain. He does have some shortness of breath and increased leg swelling. He also relates he is unable to lay flat at this time without having shortness of breath. He plans to follow-up promptly with his primary care physician to adjust his Lasix into further look into potential cardiac issues that he is been informed of previously. His family denies over this past week and he denies redness. Progress of Wound: Improving and stable - Physical Exam Vital Signs Temp Pulse Resp BP 97.8 F 98 18 117/62 05/11/19 14:23 05/11/19 14:23 05/11/19 14:23 05/11/19 14:23 General: Alert, Oriented x3, Cooperative, No apparent distress HEENT: Atraumatic Extremities: No cyanosis, Capillary Refill Less than 3 Seconds, No Calf Tenderness, Diminished Peripheral Pulses, Edema, - - Right transmetatarsal amputation Skin: Ulcer/ Wound - No purulence, erythema, string, odor, or acute signs of infection noted. His sutures remain intact and there is a skin discontinuity to the central lateral aspect that is granular. There is no odorous drainage noted today. His peripheral skin is hairless and atrophic. There is improved granulation tissue noted from the skin discontinuity and there is no longer any probe to bone Wound Measurements and Assessment WC - Nurse 1 - General Ulcer Measurement Start: 05/11/19 14:22 Freq: Status: Active Protocol: Activity Type Activity Date Activity User E-Sign Co-Sign Detail Recorded Client Recorded Date Recorded By Document 05/11/19 14:23 DL [id number] 05/11/19 14:29 DL 05/11/19 14:23 Wound Center Nurse 1 [Ulcer Assessment] 4. R foot trans met (post-op) -Current Size (cm) - Length 0.4 -Current Size (cm) - Width 0.7 -Current Size (cm) - Depth 0.8 -Total Square Cm 0.28 -Photo Taken No -Exudate Amt Small -Exudate Type Serosanguineous -Wound Margin Distinct, Outline Attached -Granulation Amt Large (67-100%) -Granulation Quality Red -Necrosis Amt None Present (0 %) -Structure Exposed N/A -Texture (Lawanda-wound Skin Appearance) Scarring -Moisture (Lawanda-wound Skin Appearance No Abnormality ) -Color (Lawanda-wound Skin Appearance) No Abnormality -Temperature (Lawanda-wound Skin No Abnormality Appearance) (Pt Warm) -Tenderness on Palpation (Lawanda-wound No Skin Appearance) -Ulcer Cleansing Wound Cleanser -Foul Odor after Cleansing No -Anesthetic Used 4% Lidocaine Solution WC - Nurse 2 - General Ulcer CM Notes Start: 05/11/19 14:22 Freq: Status: Active Protocol: Activity Type Activity Date Activity User E-Sign Co-Sign Detail Recorded Client Recorded Date Recorded By Document 05/11/19 14:34 JF [id number] 05/11/19 14:36 05/11/19 14:34 Wound Center Nurse 2 [Procedure/Treatment] -Correct Patient No -Correct Side, Site, Position No -Correct Procedure No -Procedure Performed No -Wound/Ulcer Outcome Not Healed -Ulcer Cleansing Rinsed/ Irrigated with Saline -Foul Odor after Cleansing No -Bleeding Controlled with Pressure -Offloading Yes -Type of Offloading Knee Walker -Treatment Response Procedure Tolerated Well [See Physician Procedure note for Specifics] Pain Scale: 0-10 Numeric [Pain] -Is Patient Pain Free? Yes Musculoskeletal: No Tenderness to Palpation of Joints or Extremities, Muscle Wasting, - - no Bogginess or fluctuance Neurological: - - Lack of epicritic sensation light touch consistent with neuropathy status Psych/Mental Status: Normal Affect, Appropriate Debridement Note Post-Debridement Measurements/Treatment WC - Nurse 2 - General Ulcer CM Notes Start: 05/11/19 14:22 Freq: Status: Active Protocol: Activity Type Activity Date Activity User E-Sign Co-Sign Detail Recorded Client Recorded Date Recorded By Document 05/11/19 14:34 JF [id number] 05/11/19 14:36 05/11/19 14:34 Wound Center Nurse 2 4. R foot trans met (post-op) -Correct Patient No -Correct Side, Site, Position No -Correct Procedure No -Procedure Performed No -Wound/Ulcer Outcome Not Healed -Ulcer Cleansing Rinsed/ Irrigated with Saline -Foul Odor after Cleansing No -Bleeding Controlled with Pressure -Offloading Yes -Type of Offloading Knee Walker -Treatment Response Procedure Tolerated Well Pain Scale: 0-10 Numeric Is Patient Pain Free? Yes No debridement was completed today Assessment/Plan Active Problems Smoker (Chronic) PVD (peripheral vascular disease) (Chronic) Type 2 diabetes mellitus with diabetic polyneuropathy (Chronic) Amputation at midfoot (Chronic) Non-pressure chronic ulcer of other part of right foot with fat layer exposed (Chronic) Malnutrition (Chronic) Delayed wound healing (Chronic) CKD stage 3 due to type 2 diabetes mellitus (Chronic) Assessment: Status post revisional right transmetatarsal amputation secondary to right foot ulcer with fat layer exposed and recently treated infectious myositis and concern of osteomyelitis. Resolution of concern of right foot infection, cellulitis, osteomyelitis development due to notable odor last week. Transmetatarsal amputation right foot. Delayed healing. Malnutrition suspected. Uncontrolled diabetes with neuropathy, hemoglobin A1c of 9.2%. Multiple other comorbidities. Recent exacerbation of claustrophobia. Chronic pain Plan: I reviewed and discussed his case. The patient feels well and there are l ack of systemic or local signs of infection. There is also resolution of odor.he had updated cultures, x-ray, and labs obtained last week. The x-rays are negative for acute fracture dislocation or soft tissue emphysema or foreign body. His apparent recent transmetatarsal amputation revisional site is noted. He had a white blood cell count of 9.3, sedimentation rate of 67, and C- reactive protein of 15.9. His culture growth from last week was positive for Klebsiella oxytoca, Staphylococcus epidermidis, corynebacterium striatum, and gram-negative rods. The results were reviewed and he was already called to review the results. I also advised him to go on antibiotics. His clearance fragment from surgery demonstrated corynebacterium stratum and porphymoras gingivalis. The clearance of bone fragments that was sent to pathology was negative for acute osteomyelitis. Recommend he follows up promptly with infectious disease. He was started on Augmentin and ciprofloxacin in which she has 2 days left. He will complete this course of antibiotic without refill at this time. This case was reviewed and discussed with infectious disease specialist. He was advised to continue with daily dressing to the ulcer site now with a plain gauze to help perform a little bit of debridement each day due to the fibrinous moisture that has been collected and these ulcer sites. To monitor for worsening status change from an infection standpoint; he understands. To properly control glycemic index. It is noted his last hemoglobin A1c was 7.3% and his last globular filtration rate was 56. I r ecommended hyperbaric oxygen therapy and he is still not amenable due to claustrophobia development. It is okay to continue with anticoagulation medication per his normal routine. I also recommend he follows up promptly with his primary care physician or addiction psychiatrist in regards to his reported orthopnea and leg swelling. His recent vascular surgery testing is noted that occurred prior to his most recent surgery and no additional intervention was recommended. He has suspected perfusion available to allow healing. I reviewed this case via phone with his vascular surgeon prior to his foot surgery. To continue the use of a well-padded posterior mold and assistive device to keep pressure off of the site. This was reapplied today. I recommend improved glycemic control for any hemoglobin A1c over 7.5% is associated with a poor healing outcome for surgical and nonsurgical care. I recommend nutritional supplementation and a prescription was provided for Vinicius nutritional supplementation combination with a well balanced high-protein and high nutrient diet. Continue follow-up with his infectious disease specialist as advised. I reviewed his recent noninvasive vascular studies which demonstrated biphasic waveforms to the ankle level and an CRISTINA on the right side of 0.64 and left 0.86. This is consistent with vascular impairment and his prior intervention with his vascular surgeon is noted. He is followed up and the case was discussed via phone with his vascular surgeon prior to his foot surgery. He has adequate perfusion for anticipated healing and no additional vascular surgery intervention is planned at this time. To continue with nutritional supplementation and proper glycemic control to optimize healing. To return to clinic in 1 week or call sooner if is any qu estions or concerns.
--- NOTE | 2019-05-11 22:10 | PCM.HP.ID ---
Problem List (1) Osteomyelitis of right foot Status: Suspected Qualifiers: Osteomyelitis type: subacute Qualified Code(s): M86.271 - Subacute osteomyelitis, right ankle and foot Reason for Consult: osteo Consulted by: Dr. Villasenor History of Present Illness: The patient is a 58 year old M with DM neuropathy, CKD, follows at wound center for longstanding R foot ulcer. Taken to OR by Dr. Villasenor 04/20/19. Surg cx showed klebs, msse, corynebacteria, anaerobes. Path was neg for residual osteo. At wound center last week, foot with severe odor, redness, drainage. No fever or chills. Given course of cipro and augmentin, foot much improved this visit. Has 2 days left on rx. No n/v/d. Full ROS performed and neg except as noted above. 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) Allergies/Adverse Reactions: Allergies No Known Allergies Allergy (Verified 04/19/19 12:45) Home Medications: Ambulatory Orders Medication Instructions Recorded Clopidogrel Bisulfate [Plavix] 75 mg PO DAILY 03/02/19 Insulin Detemir [Levemir Flextouch] 32 unit SQ QHS 03/02/19 Omeprazole [Prilosec] 20 mg PO BID 03/02/19 Aspirin 81 mg PO DAILY 04/19/19 Cilostazol [Pletal] 50 mg PO DAILY 04/19/19 Furosemide [Lasix] 40 mg PO 04/19/19 Gabapentin 600 mg PO DAILY 04/19/19 Liraglutide [Victoza] 12 unit SQ DAILY 04/19/19 Oxycodone HCl/Acetaminophen 1 tab PO DAILY 04/19/19 [Percocet 10-325 mg Tablet] Hydrocodone/Acetaminophen 1 tab PO Q6H PRN PRN #30 tab 04/21/19 [Hydrocodon-Acetaminophen 5-325] - Social History Tobacco Use: cigarettes Vital Signs Temp Pulse Resp BP 97.8 F 98 18 117/62 05/11/19 14:23 05/11/19 14:23 05/11/19 14:23 05/11/19 14:23 Weight: 89.811 kg Body Mass Index (BMI) 27.8 reviewed - Other Studies Radiology: [] Other Studies: [] Route of nutrition/ use of supplements: [] Nutritional Intake: [] IV Site: [] Swenson Catheter: [] - Physical Exam General: Alert, Oriented x3, Cooperative, No apparent distress HEENT: Atraumatic, PERRLA, EOMI Neck: Supple, No Nodes Lungs: Clear to auscultation, Normal air movement Cardiovascular: Regular rate, Regular Rhythm Abdomen: Soft, Non Tender, Non-Distended Skin: Incision - R foot wrapped Neurological: Cranial nerves II-XII grossly intact - Assessment/Plan Antibiotics: [] Assessment/Plan: [] R foot osteo, now s/p TMA by Dr. Villasenor, course complicated by wound infection. Now much improved with course of cipro/augmentin, agree with completing abx as planned. Will follow as needed, thank you, d/w Dr. Villasenor.
[2019-05-25 13:26] VITALS: BP 156/86; PULSE 85; RESP 16; TEMP 36.3; BMI 27.8
--- NOTE | 2019-05-25 15:16 | PCM.WC.PN ---
(1) Non-pressure chronic ulcer of other part of right foot with fat layer exposed Status: Resolved Code(s): L97.512 - Non-pressure chronic ulcer of other part of right foot with fat layer exposed (2) Smoker Status: Chronic Code(s): F17.200 - Nicotine dependence, unspecified, uncomplicated (3) PVD (peripheral vascular disease) Status: Chronic Code(s): I73.9 - Peripheral vascular disease, unspecified (4) Type 2 diabetes mellitus with diabetic polyneuropathy Status: Chronic Code(s): E11.42 - Type 2 diabetes mellitus with diabetic polyneuropathy (5) Amputation at midfoot Status: Chronic Qualifiers: Code(s): S98.319A - Complete traumatic amputation of unspecified midfoot, initial encounter (6) Malnutrition Status: Chronic Code(s): E46 - Unspecified protein-calorie malnutrition (7) Delayed wound healing Status: Chronic Code(s): T14.8XXD - Other injury of unspecified body region, subsequent encounter (8) CKD stage 3 due to type 2 diabetes mellitus Status: Chronic Code(s): E11.22 - Type 2 diabetes mellitus with diabetic chronic kidney disease; N18.3 - Chronic kidney disease, stage 3 (moderate) Type of Wound Date of Service: 05/25/19 Chief Complaint: Right foot ulcers History of Wound: This 58-year-old male with multiple comorbidities was seen today for right status post transmetatarsal amputation secondary to chronic nonhealing wounds with underlying subacute osteomyelitis. This was performed on April 20, 2019 at [facility]. He is kept his dressing and splint clean dry and intact as advised. He is maintain a nonweightbearing status by using the roller and posterior mold splint. He denies fever, chill, nausea, vomiting, loss of appetite, or diarrhea. He denies chest pain. He denies drainage and is ready for suture removal today. He relates he had a heart attack since his last visit and has since been discharged from the hospital at an outside facility in [place]. Progress of Wound: Healed - Physical Exam Vital Signs Temp Pulse Resp BP 97.4 F L 85 16 156/86 H 05/25/19 13:26 05/25/19 13:26 05/25/19 13:26 05/25/19 13:26 General: Alert, Oriented x3, Cooperative, No apparent distress Extremities: No cyanosis, Capillary Refill Less than 3 Seconds - To the dorsal and plantar amputation stump site, No Calf Tenderness - Negative Jenny and Weaver sign bilateral. Compartments remain soft to palpate, Diminished Peripheral Pulses, Edema - Moderate lower extremities Skin: Incision - Sutures were removed without any gapping, necrosis, or infection of the surgical site. This is healed with full epithelialization. There is no bogginess or fluctuance on palpation and no ecchymosis or eschar Wound Measurements and Assessment WC - Nurse 1 - General Ulcer Measurement Start: 05/11/19 14:22 Freq: Status: Active Protocol: Activity Type Activity Date Activity User E-Sign Co-Sign Detail Recorded Client Recorded Date Recorded By Document 05/25/19 13:26 [facility] [id number] 05/25/19 13:34 [facility] 05/25/19 13:26 Wound Center Nurse 1 [Ulcer Assessment] 4. R foot trans met (post-op) -Combined with other wound No -Current Size (cm) - Length 0.1 -Current Size (cm) - Width 0.1 -Current Size (cm) - Depth 0.1 -Total Square Cm 0.01 -Photo Taken Yes -Epithelialization None Present -Tunneling No -Undermining/Tunneling No -Circular Undermining No -Texture (Lawanda-wound Skin Appearance) Assessed -Moisture (Lawanda-wound Skin Appearance Assessed ) -Color (Lawanda-wound Skin Appearance) Assessed -Temperature (Lawanda-wound Skin No Abnormality Appearance) (Pt Warm) -Tenderness on Palpation (Lawanda-wound No Skin Appearance) -Ulcer Cleansing soapy water -Foul Odor after Cleansing No -Anesthetic Used 4% Lidocaine Solution [Edema Assessment] -Lower Limb Edema Present Yes -Right Calf (cm) 41.9 -Right Ankle (cm) 28.5 WC - Nurse 2 - General Ulcer CM Notes Start: 05/11/19 14:22 Freq: Status: Active Protocol: Activity Type Activity Date Activity User E-Sign Co-Sign Detail Recorded Client Recorded Date Recorded By Document 05/25/19 13:46 MANUELA [id number] 05/25/19 13:51 MANUELA 05/25/19 13:46 Wound Center Nurse 2 [Procedure/Treatment] 4. R foot trans met (post-op) -Correct Patient No -Correct Side, Site, Position No -Correct Procedure No -Procedure Performed No -Post Debridement Size (cm) - Length 0 -Post Debridement Size (cm) - Width 0 -Post Debridement Size (cm) - Depth 0 -Total Square Cm 0 -Wound/Ulcer Outcome Healed- Epithelialized [See Physician Procedure note for Specifics] Pain Scale: 0-10 Numeric [Pain] -Is Patient Pain Free? Yes Musculoskeletal: No Tenderness to Palpation of Joints or Extremities, Muscle Wasting, - - Transmetatarsal amputation right has been revised and is in a rectus balanced position Neurological: - - Lack of normal epicritic sensation light touch is consistent with his neuropathy status Psych/Mental Status: Normal Affect, Appropriate Debridement Note Post-Debridement Measurements/Treatment WC - Nurse 2 - General Ulcer CM Notes Start: 05/11/19 14:22 Freq: Status: Active Protocol: Activity Type Activity Date Activity User E-Sign Co-Sign Detail Recorded Client Recorded Date Recorded By Document 05/11/19 14:34 [id number] 05/11/19 14:36 Document 05/25/19 13:46 [id number] 05/25/19 13:51 05/11/19 05/25/19 14:34 13:46 Wound Center Nurse 2 4. R foot trans met (post-op) -Correct Patient No No -Correct Side, Site, Position No No -Correct Procedure No No -Procedure Performed No No -Post Debridement Size (cm) - Length 0 -Post Debridement Size (cm) - Width 0 -Post Debridement Size (cm) - Depth 0 -Total Square Cm 0 -Wound/Ulcer Outcome Not Healed Healed- Epithelialized -Ulcer Cleansing Rinsed/ Irrigated with Saline -Foul Odor after Cleansing No -Bleeding Controlled with Pressure -Offloading Yes -Type of Offloading Knee Walker -Treatment Response Procedure Tolerated Well Pain Scale: 0-10 Numeric Is Patient Pain Free? Yes Yes No debridement was completed today - healed Assessment/Plan Assessment: Healed status post revisional right transmetatarsal amputation secondary to right foot ulcer with fat layer exposed and recently treated infectious myositis and concern of osteomyelitis. Resolution of concern of right foot infection, cellulitis, osteomyelitis development due to notable odor last week. Transmetatarsal amputation right foot. Delayed healing. Malnutrition suspected. Uncontrolled diabetes with neuropathy, hemoglobin A1c of 9.2%. Multiple other comorbidities. Recent exacerbation of claustrophobia. Chronic pain. Recent myocardial infarction noted Plan: I reviewed and discussed his case. The patient feels well and there are lack of systemic or local signs of infection. His apparent recent transmetatarsal amputation revisional site has healed and all of the sutures were removed today. He has also been taking his oral antibiotics as recommended by infectious disease and additional refills are not recommended at this time. He can discontinue dressings at this time. I recommend he is still protective while the skin remodels. A referral to the antibiotic was provided today for extra-depth diabetic shoes with dual density Plastizote liners and a right toe filler. He will continue with his cam walker until this is arranged. To follow-up for healed wound check within the next 2 to 3 weeks. To properly control glycemic index. It is noted his last hemoglobin A1c was 7.3% and his last globular filtration rate was 56. His recent vascular surgery testing is noted that occurred prior to his most recent surgery and no additional intervention was recommended. He has suspected perfusion available to allow healing which has occurred. I reviewed this case via phone with his vascular surgeon prior to his foot surgery. He had a recent myocardial infarction which has been treated in outside facility. He appears stable and asymptomatic today. 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 It is also noted he has missed his recent pain management referral visit while he was recently hospitalized and he will work on getting this rescheduled Dr. Hanson here in [place].
== END 2019-06-03 23:59 ==
LOC: WC 13:30
PROVIDERS: Referring Provider Nurse Practitioner Family; Visit Provider Podiatrist
DX: E11.621 Type 2 diabetes mellitus with foot ulcer (principal); E11.51 Type 2 diabetes mellitus with diabetic peripheral angiopathy without gangrene; L03.115 Cellulitis of right lower limb; L97.512 Non-pressure chronic ulcer of other part of right foot with fat layer exposed; Z89.431 Acquired absence of right foot; E11.22 Type 2 diabetes mellitus with diabetic chronic kidney disease; E11.65 Type 2 diabetes mellitus with hyperglycemia; E11.42 Type 2 diabetes mellitus with diabetic polyneuropathy; M86.271 Subacute osteomyelitis, right ankle and foot; J44.9 Chronic obstructive pulmonary disease, unspecified; Z79.4 Long term (current) use of insulin; G89.29 Other chronic pain; F17.210 Nicotine dependence, cigarettes, uncomplicated
CPT/HCPCS: 99213; G0463

== ENCOUNTER 2019-06-15 13:15 | Outpatient (RCR) | payer MEDICARE, SELFPAY ==
[2019-06-04 00:44] VITALS: BP 156/86; PULSE 85; RESP 16; TEMP 36.3
[2019-06-08 13:35] VITALS: BP 130/58; PULSE 90; RESP 20; TEMP 36.6; BMI 27.8
--- NOTE | 2019-06-08 14:28 | PCM.WC.PN ---
(1) PVD (peripheral vascular disease) Status: Chronic Current Visit: Yes Code(s): I73.9 - Peripheral vascular disease, unspecified (2) Type 2 diabetes mellitus with diabetic polyneuropathy Status: Chronic Current Visit: Yes Code(s): E11.42 - Type 2 diabetes mellitus with diabetic polyneuropathy (3) Amputation at midfoot Status: Chronic Current Visit: Yes Qualifiers: Code(s): S98.319A - Complete traumatic amputation of unspecified midfoot, initial encounter (4) Non-pressure chronic ulcer of other part of right foot with fat layer exposed Status: Acute Current Visit: Yes Code(s): L97.512 - Non-pressure chronic ulcer of other part of right foot with fat layer exposed Comment: Recurrent lateral and new central Type of Wound Date of Service: 06/08/19 Chief Complaint: Right foot ulcers History of Wound: This 58-year-old male with multiple comorbidities was seen today for right status post transmetatarsal amputation secondary to chronic nonhealing wounds with underlying subacute osteomyelitis. This was performed on April 20, 2019 at [facility]. He was healed for a couple of weeks and then noticed drainage last week. Since then he picked up his new extra-depth diabetic shoes with toe filler and resumed wearing these. He is been applying a dry dressing to the ulcer site and is unable to get packing into the wound. He noticed a lot of drainage and denies redness or odor. He is with his friend today. Progress of Wound: Recurrent lateral. New central amputation stump site - Physical Exam Vital Signs Temp Pulse Resp BP 97.8 F 90 20 H 130/58 H 06/08/19 13:35 06/08/19 13:35 06/08/19 13:35 06/08/19 13:35 General: Alert, Oriented x3, Cooperative, No apparent distress Extremities: No cyanosis, Capillary Refill Less than 3 Seconds, No Calf Tenderness, Diminished Peripheral Pulses, Edema Skin: Ulcer/ Wound - No purulence, odor, erythema, streaking or necrosis noted on expression. There is a moderate amount of serosanguineous drainage coming from the central ulcer site. No bogginess or fluctuance. The skin is atrophic and hairless Wound Measurements and Assessment WC - Nurse 1 - General Ulcer Measurement Start: 06/08/19 13:34 Freq: Status: Active Protocol: Activity Type Activity Date Activity User E-Sign Co-Sign Detail Recorded Client Recorded Date Recorded By Document 06/08/19 13:35 DL [id number] 06/08/19 13:39 DL 06/08/19 13:35 Wound Center Nurse 1 [Ulcer Assessment] 4. R foot trans met (post-op) -Current Size (cm) - Length 0.3 -Current Size (cm) - Width 0.3 -Current Size (cm) - Depth 0.2 -Total Square Cm 0.09 -Photo Taken No -Exudate Amt None Present -Wound Margin Flat & Intact -Granulation Amt Medium (34-66%) -Granulation Quality [place] -Necrosis Amt None Present (0 %) -Structure Exposed N/A -Texture (Lawanda-wound Skin Appearance) Scarring -Moisture (Lawanda-wound Skin Appearance Dry/Scaly ) -Color (Lawanda-wound Skin Appearance) No Abnormality -Temperature (Lawanda-wound Skin No Abnormality Appearance) (Pt Warm) -Tenderness on Palpation (Lawanda-wound No Skin Appearance) -Ulcer Cleansing Wound Cleanser -Foul Odor after Cleansing No -Anesthetic Used 5% Lidocaine Gel WC - Nurse 2 - General Ulcer CM Notes Start: 06/08/19 13:34 Freq: Status: Active Protocol: Activity Type Activity Date Activity User E-Sign Co-Sign Detail Recorded Client Recorded Date Recorded By Document 06/08/19 13:54 [id number] 06/08/19 13:59 06/08/19 13:54 Wound Center Nurse 2 [Procedure/Treatment] 5-right medial foot -Time 13:58 -Correct Patient Yes -Correct Side, Site, Position Yes -Correct Procedure Yes -Procedure Performed Yes -Type of Procedure Debridement -Clinical Debridement Subcutaneous -Post Debridement Size (cm) - Length 0.1 -Post Debridement Size (cm) - Width 0.1 -Post Debridement Size (cm) - Depth 0.6 -Total Square Cm 0.01 -Wound/Ulcer Outcome Not Healed -Ulcer Cleansing Rinsed/ Irrigated with Saline -Foul Odor after Cleansing No -Bioengineered Tissue No -Bleeding Controlled with Pressure -Offloading No -Treatment Response Procedure Tolerated Well 4. R foot trans met (post-op) -Time 13:57 -Correct Patient Yes -Correct Side, Site, Position Yes -Correct Procedure Yes -Procedure Performed Yes -Type of Procedure Debridement -Clinical Debridement Subcutaneous -Post Debridement Size (cm) - Length 0.2 -Post Debridement Size (cm) - Width 0.3 -Post Debridement Size (cm) - Depth 0.5 -Total Square Cm 0.06 -Wound/Ulcer Outcome Not Healed -Ulcer Cleansing Rinsed/ Irrigated with Saline -Foul Odor after Cleansing No -Bioengineered Tissue No -Bleeding Controlled with Pressure -Offloading No -Treatment Response Procedure Tolerated Well [See Physician Procedure note for Specifics] Pain Scale: 0-10 Numeric [Pain] -Is Patient Pain Free? Yes Musculoskeletal: No Tenderness to Palpation of Joints or Extremities, Muscle Wasting, - - Transmetatarsal amputation right Neurological: - - Lack of normal epicritic sensation light touch is consistent with neuropathy status Psych/Mental Status: Normal Affect, Appropriate Debridement Note Post-Debridement Measurements/Treatment WC - Nurse 2 - General Ulcer CM Notes Start: 06/08/19 13:34 Freq: Status: Active Protocol: Activity Type Activity Date Activity User E-Sign Co-Sign Detail Recorded Client Recorded Date Recorded By Document 06/08/19 13:54 [id number] 06/08/19 13:59 06/08/19 13:54 Wound Center Nurse 2 5-right medial foot -Time 13:58 -Correct Patient Yes -Correct Side, Site, Position Yes -Correct Procedure Yes -Procedure Performed Yes -Type of Procedure Debridement -Clinical Debridement Subcutaneous -Post Debridement Size (cm) - Length 0.1 -Post Debridement Size (cm) - Width 0.1 -Post Debridement Size (cm) - Depth 0.6 -Total Square Cm 0.01 -Wound/Ulcer Outcome Not Healed -Ulcer Cleansing Rinsed/ Irrigated with Saline -Foul Odor after Cleansing No -Bioengineered Tissue No -Bleeding Controlled with Pressure -Offloading No -Treatment Response Procedure Tolerated Well 4. R foot trans met (post-op) -Time 13:57 -Correct Patient Yes -Correct Side, Site, Position Yes -Correct Procedure Yes -Procedure Performed Yes -Type of Procedure Debridement -Clinical Debridement Subcutaneous -Post Debridement Size (cm) - Length 0.2 -Post Debridement Size (cm) - Width 0.3 -Post Debridement Size (cm) - Depth 0.5 -Total Square Cm 0.06 -Wound/Ulcer Outcome Not Healed -Ulcer Cleansing Rinsed/ Irrigated with Saline -Foul Odor after Cleansing No -Bioengineered Tissue No -Bleeding Controlled with Pressure -Offloading No -Treatment Response Procedure Tolerated Well Pain Scale: 0-10 Numeric Is Patient Pain Free? Yes Wound debrided: central midfoot (distal amputation stump site - new site)+ lateral (return) Laterality: Right Wound Grade/Stage: grade 1 Type of Debridement: Excisional debridement Anesthesia Used: 5% Lidocaine Gel Depth: in the subcutaneous layer Percentage of wound debrided: 100 Instrument Used: #15 blade Tissue Removed: fibrous, devitalized subcutaneous, biofilm, slough Severity: Fat Layer Exposed Amount of bleeding with debridement: Mild Bleeding Controlled with: Pressure Patient tolerated procedure well Assessment/Plan Active Problems PVD (peripheral vascular disease) (Chronic) Type 2 diabetes mellitus with diabetic polyneuropathy (Chronic) Amputation at midfoot (Chronic) Non-pressure chronic ulcer of other part of right foot with fat layer exposed (Acute) Recurrent lateral and new central Assessment: Healed status post revisional right transmetatarsal amputation secondary to right foot ulcer with fat layer exposed and recently treated infectious myositis and concern of osteomyelitis. He has recurrent lateral reopening and a new ulcer to the central aspect. Resolution of concern of right foot infection, cellulitis, osteomyelitis. Transmetatarsal amputation right foot. Delayed healing. Malnutrition suspected. Uncontrolled diabetes with neuropathy, hemoglobin A1c of 9.2%. Multiple other comorbidities. Recent exacerbation of claustrophobia. Chronic pain. Recent myocardial infarction noted Plan: I reviewed and discussed his case. The patient feels well and there are lack of systemic or local signs of infection. He does have some new ulcers today and these were debrided as noted in the clinical panel. I recommend changing the dressing daily with Aquasol AG strips. He has also been taking his oral antibiotics as recommended by infectious disease and additional refills are not recommended at this time. He did obtain his extra-depth diabetic shoes with toe filler. I recommend he only wears the contralateral limb shoe at this time to avoid pressure on the ulcer sites. He is advised to return to his cam walker boot and to bring this in for potential modification next visit. He will continue with his cam walker until this is arranged. To properly control glycemic index. It is noted his last hemoglobin A1c was 7.3% and his last globular filtration rate was 56. His recent vascular surgery testing is noted that occurred prior to his most recent surgery and no additional intervention was recommended. He has suspected perfusion available to allow healing which has occurred. I reviewed this case via phone with his vascular surgeon prior to his foot surgery. He had a recent myocardial infarction which has been treated in outside facility. He appears stable and asymptomatic today. 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 It is also noted he has missed his recent pain management referral visit while he was recently hospitalized and he will work on getting this rescheduled Dr. Hanson here in [place]. I answered his questions. To rTC 1 week.
[2019-06-15 13:05] VITALS: BP 138/72; PULSE 87; RESP 18; TEMP 36.6; BMI 27.8
--- NOTE | 2019-06-15 14:19 | PCM.WC.PN ---
(1) Non-pressure chronic ulcer of other part of right foot with fat layer exposed Status: Chronic Current Visit: Yes Code(s): L97.512 - Non-pressure chronic ulcer of other part of right foot with fat layer exposed Comment: Recurrent lateral and new central (2) PVD (peripheral vascular disease) Status: Chronic Current Visit: Yes Code(s): I73.9 - Peripheral vascular disease, unspecified (3) Type 2 diabetes mellitus with diabetic polyneuropathy Status: Chronic Current Visit: Yes Code(s): E11.42 - Type 2 diabetes mellitus with diabetic polyneuropathy (4) Amputation at midfoot Status: Chronic Current Visit: Yes Qualifiers: Code(s): S98.319A - Complete traumatic amputation of unspecified midfoot, initial encounter Type of Wound Date of Service: 06/15/19 Chief Complaint: Right foot ulcers History of Wound: This 58-year-old male with multiple comorbidities was seen today for right status post transmetatarsal amputation secondary to chronic nonhealing wounds with underlying subacute osteomyelitis. This was performed on April 20, 2019 at [facility]. He is been applying a dry dressing to the ulcer site and is unable to get packing into the wound. He no longer notices a lot of drainage and denies redness or odor. He is with his friend today. Progress of Wound: Recurrent lateral stump ulcer. central amputation stump site - Physical Exam Vital Signs Temp Pulse Resp BP 98 F 87 18 138/72 H 06/15/19 13:05 06/15/19 13:05 06/15/19 13:05 06/15/19 13:05 General: Alert, Oriented x3, Cooperative, No apparent distress Extremities: No cyanosis, Capillary Refill Less than 3 Seconds, No Calf Tenderness, Diminished Peripheral Pulses, Edema Skin: Ulcer/ Wound - No purulence, erythema, streaking, odor, infection. There is no bogginess on palpation Wound Measurements and Assessment WC - Nurse 1 - General Ulcer Measurement Start: 06/08/19 13:34 Freq: Status: Active Protocol: Activity Type Activity Date Activity User E-Sign Co-Sign Detail Recorded Client Recorded Date Recorded By Document 06/15/19 13:05 DL [id number] 06/15/19 13:10 DL 06/15/19 13:05 Wound Center Nurse 1 [Ulcer Assessment] 5-right medial foot -Current Size (cm) - Length 0.3 -Current Size (cm) - Width 0.3 -Current Size (cm) - Depth 0.9 -Total Square Cm 0.09 -Photo Taken No -Tunneling Position (O'clock) 8 -Tunneling Distance (cm) 1 -Exudate Amt None Present -Wound Margin Distinct, Outline Attached -Granulation Amt Small (1-33%) -Granulation Quality [place] -Necrosis Amt None Present (0 %) -Structure Exposed N/A -Texture (Lawanda-wound Skin Appearance) Scarring -Moisture (Lawanda-wound Skin Appearance No Abnormality ) -Color (Lawanda-wound Skin Appearance) No Abnormality -Temperature (Lawanda-wound Skin No Abnormality Appearance) (Pt Warm) -Tenderness on Palpation (Lawanda-wound No Skin Appearance) -Ulcer Cleansing Rinsed/ Irrigated with Saline -Foul Odor after Cleansing No -Anesthetic Used 4% Lidocaine Solution 4. R foot trans met (post-op) -Current Size (cm) - Length 0.3 -Current Size (cm) - Width 0.4 -Current Size (cm) - Depth 0.9 -Total Square Cm 0.12 -Tunneling Position (O'clock) 4 -Tunneling Distance (cm) 1.1 -Exudate Amt Small -Exudate Type Serous -Wound Margin Distinct, Outline Attached -Granulation Amt Small (1-33%) -Granulation Quality [place] -Necrosis Amt None Present (0 %) -Structure Exposed N/A -Texture (Lawanda-wound Skin Appearance) Scarring -Moisture (Lawanda-wound Skin Appearance No Abnormality ) -Color (Lawanda-wound Skin Appearance) No Abnormality -Temperature (Lawanda-wound Skin No Abnormality Appearance) (Pt Warm) -Tenderness on Palpation (Lawanda-wound No Skin Appearance) -Ulcer Cleansing Rinsed/ Irrigated with Saline -Foul Odor after Cleansing No -Anesthetic Used 4% Lidocaine Solution WC - Nurse 2 - General Ulcer CM Notes Start: 06/08/19 13:34 Freq: Status: Active Protocol: Activity Type Activity Date Activity User E-Sign Co-Sign Detail Recorded Client Recorded Date Recorded By Document 06/15/19 13:32 MANUELA [id number] 06/15/19 13:34 MANUELA 06/15/19 13:32 Wound Center Nurse 2 [Procedure/Treatment] 5-right medial foot -Time 13:33 -Correct Patient Yes -Correct Side, Site, Position Yes -Correct Procedure Yes -Procedure Performed Yes -Type of Procedure Debridement -Clinical Debridement Subcutaneous -Post Debridement Size (cm) - Length 0.3 -Post Debridement Size (cm) - Width 0.3 -Post Debridement Size (cm) - Depth 0.5 -Total Square Cm 0.09 -Wound/Ulcer Outcome Not Healed -Ulcer Cleansing Rinsed/ Irrigated with Saline -Foul Odor after Cleansing No -Bioengineered Tissue No -Bleeding Controlled with Pressure -Offloading Yes -Type of Offloading Camwalker -Treatment Response Procedure Tolerated Well 4. R foot trans met (post-op) -Time 13:33 -Correct Patient Yes -Correct Side, Site, Position Yes -Correct Procedure Yes -Procedure Performed Yes -Type of Procedure Debridement -Clinical Debridement Subcutaneous -Post Debridement Size (cm) - Length 0.3 -Post Debridement Size (cm) - Width 0.3 -Post Debridement Size (cm) - Depth 0.5 -Total Square Cm 0.09 -Wound/Ulcer Outcome Not Healed -Ulcer Cleansing Rinsed/ Irrigated with Saline -Foul Odor after Cleansing No -Bioengineered Tissue No -Bleeding Controlled with Pressure -Offloading Yes -Type of Offloading Camwalker -Treatment Response Procedure Tolerated Well [See Physician Procedure note for Specifics] Pain Scale: 0-10 Numeric [Pain] -Is Patient Pain Free? Yes Musculoskeletal: No Tenderness to Palpation of Joints or Extremities, Muscle Wasting, - - Transmetatarsal amputation Neurological: - - Lack of normal epicritic sensation light touch consistent with his neuropathy status Psych/Mental Status: Normal Affect, Appropriate Debridement Note Post-Debridement Measurements/Treatment WC - Nurse 2 - General Ulcer CM Notes Start: 06/08/19 13:34 Freq: Status: Active Protocol: Activity Type Activity Date Activity User E-Sign Co-Sign Detail Recorded Client Recorded Date Recorded By Document 06/08/19 13:54 [id number] 06/08/19 13:59 Document 06/15/19 13:32 [id number] 06/15/19 13:34 06/08/19 06/15/19 13:54 13:32 Wound Center Nurse 2 5-right medial foot -Time 13:58 13:33 -Correct Patient Yes Yes -Correct Side, Site, Position Yes Yes -Correct Procedure Yes Yes -Procedure Performed Yes Yes -Type of Procedure Debridement Debridement -Clinical Debridement Subcutaneous Subcutaneous -Post Debridement Size (cm) - Length 0.1 0.3 -Post Debridement Size (cm) - Width 0.1 0.3 -Post Debridement Size (cm) - Depth 0.6 0.5 -Total Square Cm 0.01 0.09 -Wound/Ulcer Outcome Not Healed Not Healed -Ulcer Cleansing Rinsed/ Rinsed/ Irrigated with Irrigated with Saline Saline -Foul Odor after Cleansing No No -Bioengineered Tissue No No -Bleeding Controlled with Pressure Pressure -Offloading No Yes -Type of Offloading Camwalker -Treatment Response Procedure Procedure Tolerated Well Tolerated Well 4. R foot trans met (post-op) -Time 13:57 13:33 -Correct Patient Yes Yes -Correct Side, Site, Position Yes Yes -Correct Procedure Yes Yes -Procedure Performed Yes Yes -Type of Procedure Debridement Debridement -Clinical Debridement Subcutaneous Subcutaneous -Post Debridement Size (cm) - Length 0.2 0.3 -Post Debridement Size (cm) - Width 0.3 0.3 -Post Debridement Size (cm) - Depth 0.5 0.5 -Total Square Cm 0.06 0.09 -Wound/Ulcer Outcome Not Healed Not Healed -Ulcer Cleansing Rinsed/ Rinsed/ Irrigated with Irrigated with Saline Saline -Foul Odor after Cleansing No No -Bioengineered Tissue No No -Bleeding Controlled with Pressure Pressure -Offloading No Yes -Type of Offloading Camwalker -Treatment Response Procedure Procedure Tolerated Well Tolerated Well Pain Scale: 0-10 Numeric Is Patient Pain Free? Yes Yes Wound debrided: central and lateral stump site Laterality: Right Wound Grade/Stage: grade 1 Type of Debridement: Excisional debridement Anesthesia Used: 5% Lidocaine Gel Depth: in the subcutaneous layer Percentage of wound debrided: 100 Instrument Used: #15 blade Tissue Removed: Fibrous, devitalized subcutaneous, biofilm, slough Severity: Fat Layer Exposed Amount of bleeding with debridement: Mild Bleeding Controlled with: Pressure Patient tolerated procedure well Assessment/Plan Active Problems PVD (peripheral vascular disease) (Chronic) Type 2 diabetes mellitus with diabetic polyneuropathy (Chronic) Amputation at midfoot (Chronic) Non-pressure chronic ulcer of 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 He has recurrent lateral reopening and a new ulcer to the central aspect. Resolution of concern of right foot infection, cellulitis, osteomyelitis. Transmetatarsal amputation right foot. Delayed healing. Malnutrition suspected. Uncontrolled diabetes with neuropathy, hemoglobin A1c of 9.2%. Multiple other comorbidities. Recent exacerbation of claustrophobia. Chronic pain. Recent myocardial infarction noted Plan: I reviewed and discussed his case. The patient feels well and there are lack of systemic or local signs of infection. He does have some newer ulcers today and these were debrided as noted in the clinical panel. I recommend changing the dressing daily with Aquacell AG strips. He has also been taking his oral antibiotics as recommended by infectious disease and additional refills are not recommended at this time. He did obtain his extra-depth diabetic shoes with toe filler. I recommend he only wears the contralateral limb shoe at this time to avoid pressure on the ulcer sites. He is advised to return to his cam walker boot and to bring this in for potential modification next visit. He will continue with his cam walker until this is arranged. To properly control glycemic index. It is noted his last hemoglobin A1c was 7.3% and his last globular filtration rate was 56. His recent vascular surgery testing is noted that occurred prior to his most recent surgery and no additional intervention was recommended. He has suspected perfusion available to allow healing which has occurred. I reviewed this case via phone with his vascular surgeon prior to his foot surgery. He had a recent myocardial infarction which has been treated in outside facility. He appears stable and asymptomatic today. 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 It is also noted he has missed his recent pain management referral visit while he was recently hospitalized and he will work on getting this rescheduled Dr. Hanson here in [place]. I answered his questions. To rTC 1 week. It is also noted that he has not smoked for 6 weeks and he was encouraged to continue.
== END 2019-07-02 23:59 ==
LOC: WC 13:15
PROVIDERS: Referring Provider Nurse Practitioner Family; Visit Provider Podiatrist
DX: E11.621 Type 2 diabetes mellitus with foot ulcer (principal); E11.51 Type 2 diabetes mellitus with diabetic peripheral angiopathy without gangrene; E11.42 Type 2 diabetes mellitus with diabetic polyneuropathy; Z89.431 Acquired absence of right foot; L97.512 Non-pressure chronic ulcer of other part of right foot with fat layer exposed; E11.69 Type 2 diabetes mellitus with other specified complication; M86.271 Subacute osteomyelitis, right ankle and foot; T87.89 Other complications of amputation stump; E11.65 Type 2 diabetes mellitus with hyperglycemia; I25.2 Old myocardial infarction; F40.240 Claustrophobia
CPT/HCPCS: 11042